=== PATIENT | female | born 1960 | race American Indian/Alaskan Native ===

== ENCOUNTER 2017-09-18 17:34 | Inpatient (IN) | payer MEDICAID ==
[2017-09-18] MEDS ORDERED: Tobramycin 0.3% OPHT SOLN OU STA (17:57)
[2017-09-18 18:01] VITALS: BMI 50.2
--- NOTE | 2017-09-18 18:43 | ED PDOC ---
Arrival/HPI - General Chief Complaint: Lower Extremity Problem/Injury Time Seen by Provider: 09/18/17 17:45 Historian: Patient - History of Present Illness Narrative History of Present Illness (Text): 09/18/17 19:32 57yo female with Past medical history of Diabetes, hypertension, OA of B/L knee and HIV bib for complaint of b/l knee pain/weakness, nonproductive cough nasal congestion, b/l eyes redness and crusty discharge. Notes that symptoms started a week now. Knee pain is chronic, but only became worse recently. Notes that she is not on any analgesic. She is on HAART medication and viral load is 819 a year ago. She denies shortness of breath, chest pain, fever, chills, sick contact, travel, visual change, any other complaint. Past Medical History - Provider Review Nursing Documentation Reviewed: Yes - Infectious Disease Hx of Infectious Diseases: None - Cardiac Hx Hypertension: Yes - Pulmonary Hx Chronic Obstructive Pulmonary Disease (COPD): Yes Hx Sleep Apnea: Yes - HEENT Hx Deafness: Yes (L ear) - Psychiatric Hx Substance Use: Yes (h/o heroine use) - Surgical History Other/Comment: R ear surgery - Anesthesia Hx Anesthesia: Yes Hx Anesthesia Reactions: No Hx Malignant Hyperthermia: No Family/Social History - Physician Review Nursing Documentation Reviewed: Yes Family/Social History: Unknown Family HX Smoking Status: Current Some Days Smoker Hx Alcohol Use: No Frequency of alcohol use: Socially Hx Substance Use: Yes (h/o heroine use) Allergies/Home Meds Allergies/Adverse Reactions: Allergies No Known Allergies Allergy (Verified 09/18/17 17:56) Home Medications: Home Meds Medication Instructions Recorded Confirmed Aspirin [Aspirin Chewable] 1 tab PO DAILY 09/18/17 09/18/17 Gabapentin [Neurontin] 1 cap PO TID 09/18/17 09/18/17 Review of Systems - Physician Review All systems were reviewed & negative as marked: Yes - Review of Systems Constitutional: Normal Eyes: Other (Redness and discharge) ENT: Normal Respiratory: Cough Cardiovascular: Normal Gastrointestinal: Abdominal Pain. absent: Constipation, Diarrhea, Nausea, Vomiting, Hematochezia, Hematemesis Genitourinary Female: Normal Musculoskeletal: Arthralgias (B/L knee pain) Skin: Normal Neurological: Normal Endocrine: Normal Hemo/Lymphatic: Normal Psychiatric: Normal Physical Exam Vital Signs Reviewed: Yes Vital Signs Temp Pulse Resp BP Pulse Ox 09/18/17 18:09 98.4 F 88 18 119/75 95 Temperature: Afebrile Blood Pressure: Normal Pulse: Regular Respiratory Rate: Normal Appearance: Positive for: Well-Appearing, Non-Toxic, Comfortable Pain Distress: None Mental Status: Positive for: Alert and Oriented X 3 - Systems Exam Head: Present: Atraumatic, Normocephalic Pupils: Present: PERRL Extroacular Muscles: Present: EOMI Conjunctiva: Present: Injected (B/L. LEft worse than right), Icteric (Rede left conjunctiva) Mouth: Present: Moist Mucous Membranes Nose (Internal): Present: Normal Inspection Neck: Present: Normal Range of Motion Respiratory/Chest: Present: Clear to Auscultation, Good Air Exchange. No: Respiratory Distress, Accessory Muscle Use, Wheezes, Decreased Breath Sounds, Rales, Retracting, Rhonchi Cardiovascular: Present: Regular Rate and Rhythm, Normal S1, S2. No: Murmurs Abdomen: Present: Tenderness (Suprapubic tenderness), Other (soft). No: Distention, Peritoneal Signs, Rebound, Guarding, McBurney's Point Tender, Rovsing's Sign Present Back: Present: Normal Inspection Upper Extremity: Present: Normal Inspection. No: Cyanosis, Edema Lower Extremity: Present: Normal Inspection. No: Edema Neurological: Present: GCS=15, CN II-XII Intact, Speech Normal Skin: Present: Warm, Dry, Normal Color. No: Rashes Psychiatric: Present: Alert, Oriented x 3, Normal Insight, Normal Concentration Medical Decision Making ED Course and Treatment: B/L Knee 09/19/17 00:36 IMPRESSION: 1. Tricompartment degenerative changes are visualized. 2. There is no acute fracture or dislocation of the right knee. 3. Mild soft tissue swelling is visualized anteriorly. 4. There is a minimal patellofemoral joint effusion. 5. Incidental/non-acute findings are described above Chest CT MPRESSION: 1. Within the right lower lobe, there is a band of consolidation, likely representing atelectatic change or infiltrate. Additional patchy areas of atelectatic change and nonspecific groundglass density are visualized within the lungs bilaterally. 2. A few pulmonary nodules are noted above. If this patient is at low risk for a primary malignancy, then a follow-up noncontrast chest CT is recommended at 6-12 months , then at 18-24 months if unchanged. If this patient is at high risk for a primary malignancy, then a follow-up noncontrast chest CT is recommended at 3-6 months, then at 9-12 months and at 24 months if unchanged. Fleischner Society Recommendations. Incidental Pulmonary Nodule Follow-up. Radiology, 2005 Apr;237(2):395-400. 3. There is cardiomegaly. 4. There is mediastinal and bilateral axillary lymphadenopathy. These lymph nodes may be inflammatory or malignant in etiology. This can be further evaluated with PET/ CT. 5. There is heterogeneous density and irregularity within the lumen of the esophagus, which is of indeterminate clinical significance. This can be further evaluated with an esophagram. 6. Incidental/non-acute findings are described above Pt in Emergency department for stated history. B/L lower lobe consolidation was noted. Mild leukocytosis was noted. Blood culture was ordered. Rocephin and Zithro was ordered in Emergency department. Cr. of 7.5 was noted and pt is not aware of any kidney disease. Her potassium is however WNL. Pt was admitted for further treatment Case was TASNEEM Orta and she accepted pt for admission. - Lab Interpretations Lab Results: 09/18/17 19:00 09/18/17 19:00 Lab Results 09/18/17 19:00: TSH 3rd Generation 1.55 09/18/17 19:00: Sodium 140, Potassium 5.0, Chloride 99, Carbon Dioxide 25, Anion Gap 21 H, BUN 70 H, Creatinine 7.5 H*, Est GFR ( Amer) 7, Est GFR ( Non-Af Amer) 6, Random Glucose 98, Calcium 9.6, Total Bilirubin 0.4, AST 49 H, ALT 39, Alkaline Phosphatase 83, Total Protein 9.3 H, Albumin 4.1, Globulin 5.1 , Albumin/Globulin Ratio 0.8 L, Lipase 48 09/18/17 19:00: PT 12.4, INR 1.09 H, APTT 26.7 09/18/17 19:00: WBC 11.3 H, RBC 3.90, Hgb 11.2 L, Hct 35.9 L, MCV 92.1, MCH 28.7 , MCHC 31.2, RDW 16.1 H, Plt Count 224, MPV 9.8, Gran % 70.5 H, Lymph % (Auto) 22.8, [place] % (Auto) 5.6, Eos % (Auto) 1.0 L, Baso % (Auto) 0.1, Gran # 8.00 H, Lymph # (Auto) 2.6, [place] # (Auto) 0.6, Eos # (Auto) 0.1, Baso # (Auto) 0.01 - RAD Interpretation Radiology Orders: 09/18/17 17:57 CHEST PORTABLE [RAD] Stat 09/18/17 18:43 KNEES BILATERAL [RAD] Stat 09/18/17 20:48 EXT LOWER W/O CONTRAST BI [CT] Stat 09/18/17 21:18 CHEST W/O CONTRAST [CT] Stat - Medication Orders Current Medication Orders: Acetaminophen (Tylenol 325mg Tab) 650 mg PO Q6H PRN PRN Reason: Pain, Mild (1-3) Last Admin: 09/18/17 23:52 Dose: 650 mg MAR Pain/Vitals Document 09/18/17 23:52 MJ (Rec: 09/18/17 23:53 MJ [facility] [id number][place] Pain Reassessment Is This A Pain ReAssessment? No Sleep Is patient sleeping during reassessment? No Presence of Pain Presence of Pain Yes Pain Scale Used Pain Scale Used Numeric Location Left, Right or Bilateral Right Pain Location Body Site Knee Description Constant Intensity 8 Pain Behavior Moaning Alleviating Factors Medication Heparin Sodium (Porcine) (Heparin) 5,000 units SC Q12 VELIA PRN Reason: Protocol Ceftriaxone Sodium (Rocephin 1 Gram Ivpb) 1 gm in 100 mls @ 100 mls/hr IVPB DAILY VELIA PRN Reason: Protocol Azithromycin (Zithromax 500mg In Ns) 500 mg in 250 mls @ 167 mls/hr IVPB DAILY VELIA PRN Reason: Protocol Pantoprazole Sodium (Protonix Inj) 40 mg IVP DAILY VELIA Discontinued Medications Ceftriaxone Sodium (Rocephin 1 Gram Ivpb) 1 gm in 100 mls @ 200 mls/hr IVPB STAT STA PRN Reason: Protocol Stop: 09/18/17 21:47 Last Admin: 09/18/17 21:39 Dose: 200 mls/hr eMAR Start Stop Document 09/18/17 21:39 RD (Rec: 09/18/17 21:39 RD [id number]) Intravenous Solution Start Date 09/18/17 Start Time 21:39 End Date 09/18/17 End time 22:09 Total Infusion Time 30 Azithromycin (Zithromax 500mg In Ns) 500 mg in 250 mls @ 167 mls/hr IVPB STAT STA PRN Reason: Protocol Stop: 09/18/17 22:46 Last Admin: 09/18/17 22:47 Dose: 167 mls/hr eMAR Start Stop Document 09/18/17 22:47 RD (Rec: 09/18/17 22:48 RD [id number]) Intravenous Solution Start Date 09/18/17 Start Time 22:48 End Date 09/19/17 End time 00:18 Total Infusion Time 90 Sodium Chloride (Sodium Chloride 0.9%) 500 mls @ 999 mls/hr IV .Q31M STA Stop: 09/18/17 23:04 Sodium Chloride (Sodium Chloride 0.9%) 1,000 mls @ 999 mls/hr IV .Q1H1M STA Stop: 09/18/17 23:34 Last Admin: 09/18/17 22:52 Dose: 999 mls/hr eMAR Start Stop Document 09/18/17 22:52 RD (Rec: 09/18/17 22:52 RD [id number]) Intravenous Solution Start Date 09/18/17 Start Time 22:52 End Date 09/18/17 End time 23:52 Total Infusion Time 60 Ketorolac Tromethamine (Toradol) 30 mg IVP STAT STA Stop: 09/18/17 19:29 Last Admin: 09/18/17 19:36 Dose: 30 mg MAR Pain Assessment Document 09/18/17 19:36 RD (Rec: 09/18/17 19:36 RD [id number]) Pain Reassessment Is this a pain reassessment? No Sleep Is patient sleeping during reassessment? No Presence of Pain Presence of Pain Yes IVP Administration Document 09/18/17 19:36 RD (Rec: 09/18/17 19:36 RD [id number]) Charges for Administration # of IVP Administrations 1 Oxycodone/Acetaminophen (Percocet 5/325 Mg Tab) 1 tab PO STAT STA Stop: 09/18/17 21:02 Last Admin: 09/18/17 21:10 Dose: 1 tab MAR Pain Assessment Document 09/18/17 21:10 RD (Rec: 09/18/17 21:10 RD [id number]) Pain Reassessment Is this a pain reassessment? No Sleep Is patient sleeping during reassessment? No Presence of Pain Presence of Pain Yes Pain Scale Used Pain Scale Used Numeric Description Description Constant Intensity of Pain at present 7 Pain Behavior Irritability Alleviating Factors/Management Medication Techniques Alleviating Factors Medication Tobramycin Sulfate (Tobrex 0.3% [facility]) 2 drop OU STAT STA Stop: 09/18/17 17:58 Last Admin: 09/18/17 19:36 Dose: 2 drop Disposition/Present on Arrival - Present on Arrival Any Indicators Present on Arrival: No History of DVT/PE: No History of Uncontrolled Diabetes: No Urinary Catheter: No History of Decub. Ulcer: No History Surgical Site Infection Following: None - Disposition Have Diagnosis and Disposition been Completed?: Yes Diagnosis: Pneumonia, Acute kidney failure, Knee pain Disposition: HOSPITALIZED Disposition Time: 21:45 Patient Plan: Admission Condition: FAIR
[2017-09-18 19:54] LABS: BASO # 0.01 K/mm3 (0.0-2.0); BASO % 0.1 % (0.0-3.0); EOS # 0.1 (0.0-0.7); GRAN % 70.5 % (50.0-68.0); HEMOGLOBIN 11.2 g/dL (12.0-16.0); LYMPH # 2.6 (1.2-3.4); LYMPH % 22.8 % (22.0-35.0); MEAN CELL VOLUME 92.1 fl (80.0-105.0); MEAN CORPUSCULAR HEMOGLOBIN 28.7 pg (25.0-35.0); MEAN CORPUSCULAR HGB CONC 31.2 g/dl (31.0-37.0); MEAN PLATELET VOLUME 9.8 fl (7.0-11.0); MONO # 0.6 (0.1-0.6); MONO % 5.6 % (1.0-6.0); RBC 3.9 10^6/uL (3.5-6.1); RED CELL DISTRIBUTION WIDTH 16.1 % (11.5-14.5); WHITE BLOOD COUNT 11.3 10^3/ul (4.5-11.0)
[2017-09-18 19:59] LABS: INR 1.09 (0.93-1.08); PARTIAL THROMBOPLASTIN TIME 26.7 Seconds (25.1-36.5); PROTHROMBIN TIME 12.4 SECONDS (9.4-12.5)
[2017-09-18 20:03] LABS: ALB/GLOB RATIO 0.8 (1.1-1.8); ALBUMIN 4.1 g/dL (3.0-4.8); CALCIUM 9.6 mg/dL (8.4-10.5)
[2017-09-18] MEDS ORDERED: Oxycodone/Acetaminophen 5/325 mg Tab PO STA (21:01)
[2017-09-18] MEDS ORDERED: Azithromycin 500MG/NS 250ml 500 MG/250 ML BAG IVPB STA (21:17)
[2017-09-18] MEDS ORDERED: cefTRIAXone 1 gm 1 GM/100 ML BAG IVPB STA (21:18)
[2017-09-18] MEDS ORDERED: Sodium Chloride 0.9% 500 ML IV STA (22:34)
[2017-09-18] MEDS ORDERED: Sodium Chloride 0.9% 1,000 ML IV STA (22:41)
--- NOTE | 2017-09-19 00:23 | CT ---
EXAM: CT Chest Without Intravenous Contrast EXAM DATE/TIME: 09/18/2017 9:18 PM CLINICAL HISTORY: The patient age is 57 years old and is female; Signs and symptoms; Cough; Symptoms not specified; Additional info: Cough, ? effusion Facility exam id and description: Ct chests chest w/o contrast TECHNIQUE: Axial computed tomography images of the chest without intravenous contrast. All CT scans at this facility use one or more dose reduction techniques, viz.: automated exposure control; ma/kV adjustment per patient size (including targeted exams where dose is matched to indication; i.e. head); or iterative reconstruction technique. Coronal and sagittal reformatted images were created and reviewed. COMPARISON: DX - CHEST PORTABLE 2017-09-18 20:11 FINDINGS: Lungs: Within the right lower lobe, there is a band of consolidation, likely representing atelectatic change or infiltrate. Additional patchy areas of atelectatic change and nonspecific groundglass density are visualized within the lungs bilaterally. Within the right lower lobe on series 4 image 59, there is a 5 mm nodule. Within the right middle lobe on series 4 image 49, there is a 7 mm nodule. Pleural space: No pneumothorax. No significant effusion. Heart: There is cardiomegaly. Mediastinum: There is heterogeneous density and irregularity within the lumen of the esophagus, which is of indeterminate clinical significance. Bones/joints: Hypertrophic degenerative changes are noted within the spine. There is bilateral glenohumeral arthropathy. Vasculature: Mild atherosclerotic changes are visualized. No thoracic aortic aneurysm. Lymph nodes: There is mediastinal and bilateral axillary lymphadenopathy. These lymph nodes may be inflammatory or malignant in etiology. A right paratracheal lymph node measures 2.0 x 2.3 cm. Adrenals: There is thickening of the bilateral adrenal glands. Upper abdomen: There is mild elevation of the right hemidiaphragm. IMPRESSION: 1. Within the right lower lobe, there is a band of consolidation, likely representing atelectatic change or infiltrate. Additional patchy areas of atelectatic change and nonspecific groundglass density are visualized within the lungs bilaterally. 2. A few pulmonary nodules are noted above. If this patient is at low risk for a primary malignancy, then a follow-up noncontrast chest CT is recommended at 6-12 months, then at 18-24 months if unchanged. If this patient is at high risk for a primary malignancy, then a follow-up noncontrast chest CT is recommended at 3-6 months, then at 9-12 months and at 24 months if unchanged. Fleischner Society Recommendations. Incidental Pulmonary Nodule Follow-up. Radiology, 2005 Nov;237(2):395-400. 3. There is cardiomegaly. 4. There is mediastinal and bilateral axillary lymphadenopathy. These lymph nodes may be inflammatory or malignant in etiology. This can be further evaluated with PET/CT. 5. There is heterogeneous density and irregularity within the lumen of the esophagus, which is of indeterminate clinical significance. This can be further evaluated with an esophagram. 6. Incidental/non-acute findings are described above.
--- NOTE | 2017-09-19 00:32 | CT ---
EXAM: CT Left Lower Extremity Without Intravenous Contrast, Knee CLINICAL HISTORY: The patient age is 57 years old and is female; Pain; Knee; Bilatera; Additional info: B/l knees Facility exam id and description: Ct extlowncbi ext lower w/o contrast bi TECHNIQUE: Axial computed tomography images of the left knee without intravenous contrast. All CT scans at this facility use one or more dose reduction techniques, viz.: automated exposure control; ma/kV adjustment per patient size (including targeted exams where dose is matched to indication; i.e. head); or iterative reconstruction technique. Coronal and sagittal reformatted images were created and reviewed. COMPARISON: DX - KNEES BILATERAL 2017-09-18 20:01 FINDINGS: Bones/joints: Tricompartment hypertrophic degenerative changes are visualized. There is no acute fracture or dislocation of the left knee. There is a minimal patellofemoral joint effusion. There is significant narrowing of the patellofemoral joint and medial compartment of the knee. Cystic change is identified within the bone marrow of the medial tibial plateau. This is likely secondary to arthropathy. Soft tissues: Mild soft tissue swelling is visualized anteriorly. CT is suboptimal for the evaluation of ligaments, tendons and menisci. IMPRESSION: 1. Tricompartment degenerative changes are visualized. 2. There is no acute fracture or dislocation of the left knee. 3. Mild soft tissue swelling is visualized anteriorly. 4. There is a minimal patellofemoral joint effusion. 5. Incidental/non-acute findings are described above. EXAM: CT Right Lower Extremity Without Intravenous Contrast, Knee EXAM DATE/TIME: 09/18/2017 8:48 PM CLINICAL HISTORY: The patient age is 57 years old and is female; Pain; Knee; Bilatera; Additional info: B/l knees Facility exam id and description: Ct extlowncbi ext lower w/o contrast bi TECHNIQUE: Axial computed tomography images of the right knee without intravenous contrast. All CT scans at this facility use one or more dose reduction techniques, viz.: automated exposure control; ma/kV adjustment per patient size (including targeted exams where dose is matched to indication; i.e. head); or iterative reconstruction technique. Coronal and sagittal reformatted images were created and reviewed. COMPARISON: DX - KNEES BILATERAL 2017-09-18 20:01 FINDINGS: Bones/joints: Tricompartment hypertrophic degenerative changes are visualized. There is no acute fracture or dislocation of the right knee. There is a minimal patellofemoral joint effusion. Within the patella, there is a hypodense probable cyst measuring 1.1 x 1.0 cm. There is an ossific loose body posterior to the knee measuring 1.9 x 1.3 cm. A fabella is also visualized. There is significant narrowing of the patellofemoral joint and medial compartment of the knee. Soft tissues: Mild soft tissue swelling is visualized anteriorly. CT is suboptimal for the evaluation of ligaments, tendons and menisci. IMPRESSION: 1. Tricompartment degenerative changes are visualized. 2. There is no acute fracture or dislocation of the right knee. 3. Mild soft tissue swelling is visualized anteriorly. 4. There is a minimal patellofemoral joint effusion. 5. Incidental/non-acute findings are described above.
[2017-09-19] MEDS ORDERED: Aritificial Tears (15ml) OU PRN (00:45)
--- NOTE | 2017-09-19 01:06 | CP.PCM.HP ---
History of Present Illness - History of Present Illness History of Present Illness: CC: Weakness, cough, congestion Pt is a 57 yo F with PMH of DM, HTN, OA of b/l knees, HIV, COPD, and osteoporosis [place] [facility] to a 1 week history of weakness, cold like symptoms, and b/l LE pain. Pt complains of cough that is productive with green sputum, shortness of breath, and sinus congestion. Pt denies any recent travel or sick contacts. Pt states that she has had recurrent pneumonias in the past, the most recent being 1 year ago. She [place] [facility] [place] but came [place] [facility] [place] she recently moved to [place]. Pt is currently on HAART therapy for HIV. Last , CD4 and viral load was obtained about 1 year and was 1 and 862, respectively. Pt is unsure of her medications at this time. Pt states that she does not follow up with an infectious disease physician, however does get refill prescriptions from [facility]. Pt states that she was shopping for food earlier today, when she feel on her knees. Since then patient is complaining of b/l knee pain, as well as diffuse LE pain to touch. Pt states that left knee is difficult to keep straight for long periods due to pain. Pt states that with her history of OA there is always some pain, but much more after fall. Pt denies CP, n/v/d, abdominal pain, fever, chills, CROSS, or dizziness. PMH: DM, HTN, OA of b/l knees, HIV, COPD, and osteoporosis Surg: Ear surgery All: NKDA FHx: DM, HTN, CAD, breast CA SH: 1/2 ppd for 30 yrs, admitted to prior heroin (snort) use for 6 months (quit 15 months ago) currently on methadone 100 mg daily, denied EtOH [facility] (Methadone) [phone] [facility] (Medications) [phone] (needs verification) Present on Admission - Present on Admission Any Indicators Present on Admission: No Review of Systems - Review of Systems Review of Systems: 12 point ROS reviewed and is negative other than what is stated in HPI. Past Patient History - Infectious Disease Hx of Infectious Diseases: None - Past Social History Smoking Status: Current Some Days Smoker - CARDIAC Hx Hypertension: Yes - PULMONARY Hx Chronic Obstructive Pulmonary Disease (COPD): Yes Hx Sleep Apnea: Yes - HEENT Hx Deafness: Yes (L ear) - HEMATOLOGICAL/ONCOLOGICAL Hx Human Immunodeficiency Virus (HIV): Yes - PSYCHIATRIC Hx Substance Use: Yes (h/o heroine use) - SURGICAL HISTORY Other/Comment: R ear surgery - ANESTHESIA Hx Anesthesia: Yes Hx Anesthesia Reactions: No Hx Malignant Hyperthermia: No Meds Allergies/Adverse Reactions: Allergies Allergy/AdvReac Type Severity Reaction Status Date / Time No Known Allergies Allergy Verified 09/18/17 17:56 Physical Exam - Constitutional Appears: In Acute Distress, Unkempt - Head Exam Head Exam: NORMAL INSPECTION - Eye Exam Eye Exam: Conjunctival injection (L>R, no discharge) Pupil Exam: NORMAL ACCOMODATION - ENT Exam ENT Exam: Mucous Membranes Moist - Neck Exam Neck exam: Positive for: Normal Inspection - Respiratory Exam Respiratory Exam: Decreased Breath Sounds, Clear to Auscultation Bilateral. absent: Rales, Rhonchi, Wheezes, Respiratory Distress - Cardiovascular Exam Cardiovascular Exam: RRR, +S1, +S2. absent: Diastolic murmur, Gallop, Rubs, Systolic Murmur - GI/Abdominal Exam GI & Abdominal Exam: Soft. absent: Distended, Guarding, Rebound, Tenderness - Extremities Exam Extremities exam: Positive for: joint swelling (b/l knee), normal capillary refill, tenderness (diffuse b/l LE), pedal pulses present. Negative for: calf tenderness, full ROM (limited due to pain) - Back Exam Back exam: NORMAL INSPECTION - Neurological Exam Neurological exam: Alert, CN II-XII Intact, Oriented x3 - Psychiatric Exam Psychiatric exam: Normal Affect, Normal Mood - Skin Skin Exam: Dry, Intact, Normal Color, Warm Results - Vital Signs Recent Vital Signs: Last Vital Signs Temp 98.4 F 09/18/17 18:09 Pulse 88 09/18/17 18:09 Resp 18 09/18/17 18:09 BP 119/75 09/18/17 18:09 Pulse Ox 95 09/18/17 18:09 - Labs Result Diagrams: 09/18/17 19:00 09/18/17 19:00 Labs: Laboratory Results - last 24 hr 09/18/17 23:23 POC Glucose (mg/dL) 98 Assessment & Plan - Assessment and Plan (Free Text) Assessment: 57 yo F with PMH of DM, HTN, OA of b/l knees, HIV, COPD, and osteoporosis admitted for pneumonia and renal insufficiency. Plan: 1. Possible Pneumonia - Afebrile, mild luekocytosis - CXR shows possible b/l lower lobe infiltrate, but likely due to large body habitus - CT showed band consolidation within the right lower lobe, likely representing atelectatic change or infiltrate. Patchy areas of atelectatic change and nonspecific groundglass density. 5 mm nodule in right lower lobe. Mediastinal and bilateral axillary lymphadenopathy. - Cover patient for CAP with ceftriaxone and azithromycin - CPAP HS - Aspiration and fall precautions 2. Renal Insufficiency - Cr 7.5 - Patient unaware of any kidney disease - Likely acute on chronic kidney disease - Urine electrolytes and creatinine ordered to calculate FeNa - NS 1L bolus - Echo ordered to assess cardiac function, no maintenance fluids ordered at this time - Nephro consulted 3. H/o HIV - CD4 and viral load ordered - Follow up with [facility] or Pharmacy for HAART and other home medications 4. H/o of Heroin abuse on Methadone - Verify Methadone 100 mg daily with [facility] 5. B/L knee pain - Likely 2/2 osteoarthritis - B/L knee xray showed no acute fractures, joint space narrowing and osteophytes consistent with osteoarthritis - B/L knee CT showed tricompartment degenerative changes are visualized, no acute fracture or dislocation, Mild soft tissue swelling is visualized anteriorly - Tylenol for pain; avoid NSAIDs for now due to renal insufficiency and opioids due to h/o heroin abuse 6. Conjunctivitis - Likely viral as no discharge is appreciated - Supportive care with artificial tears 7. Pulmonary Nodule found on CT - CT chest showed 5 mm nodule in right lower lobe - If this patient is at low risk for a primary malignancy, then a follow-up noncontrast chest CT is recommended at 6-12 months, then at 18-24 months if unchanged. If this patient is at high risk for a primary malignancy, then a follow-up noncontrast chest CT is recommended at 3-6 months, then at 9-12 months and at 24 months if unchanged. Fleischner Society Recommendations. Incidental Pulmonary Nodule Follow-up. Radiology, 2005 Nov;237(2):395-400. GI/DVT PPx - Protonix - Heparin Pt seen and discussed in detail with Dr. Orta. Howard Thompson, PGY1
[2017-09-19 07:24] LABS: HEMOGLOBIN 10.4 g/dL (12.0-16.0); MEAN CELL VOLUME 91.9 fl (80.0-105.0); MEAN CORPUSCULAR HGB CONC 30.5 g/dl (31.0-37.0); MEAN PLATELET VOLUME 9.9 fl (7.0-11.0); RBC 3.71 10^6/uL (3.5-6.1); RED CELL DISTRIBUTION WIDTH 16.2 % (11.5-14.5); WHITE BLOOD COUNT 13.6 10^3/ul (4.5-11.0)
[2017-09-19 07:44] LABS: ALB/GLOB RATIO 0.8 (1.1-1.8); ALBUMIN 3.8 g/dL (3.0-4.8); CALCIUM 8.9 mg/dL (8.4-10.5)
[2017-09-19] MEDS ORDERED: Dextrose 50% SYRINGE Inj (50 ml) IVP ONE ×2 (07:57→16:26)
[2017-09-19] MEDS ORDERED: Sod Polystyrene Sulf 15 gm/60 ml Susp PO ONE (07:57)
[2017-09-19] MEDS ORDERED: Insulin Regular 1 UNITS/0.01 ML ML SC ONE (07:58)
[2017-09-19] MEDS ORDERED: Sodium Chloride 0.9% 1,000 ML IV SCH ×2 (08:30→16:00)
[2017-09-19] MEDS ORDERED: Insulin Regular 1 UNITS/0.01 ML ML IVP ONE ×2 (08:47→16:22)
--- NOTE | 2017-09-19 09:32 | RAD ---
HISTORY: cough COMPARISON: No prior. FINDINGS: LUNGS: No active pulmonary disease. PLEURA: No significant pleural effusion identified, no pneumothorax apparent. CARDIOVASCULAR: Normal. OSSEOUS STRUCTURES: No significant abnormalities. VISUALIZED UPPER ABDOMEN: Normal. OTHER FINDINGS: None. IMPRESSION: No active disease.
[2017-09-19] MEDS ORDERED: Albuterol 0.5% Inhal Sol (2.5 mg/0.5 ml) UD IH STA ×3 (09:38→16:22)
[2017-09-19] MEDS: cefTRIAXone 1 gm 1 GM/100 ML BAG IVPB SCH (11:38)
[2017-09-19] MEDS: Azithromycin 500MG/NS 250ml 500 MG/250 ML BAG IVPB SCH (12:43)
--- NOTE | 2017-09-19 13:20 | RAD ---
HISTORY: congestion COMPARISON: 09/18/2017 FINDINGS: LUNGS: No active pulmonary disease. PLEURA: No significant pleural effusion identified, no pneumothorax apparent. CARDIOVASCULAR: Moderate cardiomegaly. Mild vascular congestion OSSEOUS STRUCTURES: No significant abnormalities. VISUALIZED UPPER ABDOMEN: Normal. OTHER FINDINGS: None. IMPRESSION: Moderate cardiomegaly. Mild vascular congestion
--- NOTE | 2017-09-19 13:29 | RAD ---
PROCEDURE: Bilateral Knee Radiographs. HISTORY: knee pain COMPARISON: None. FINDINGS: BONES: Right Knee: Normal. No fracture. Left Knee: Normal. No fracture. JOINTS: Severe joint space narrowing in the medial compartment is seen bilaterally left greater than right. Degenerative changes are also seen in both patellofemoral joints SOFT TISSUES: Right Knee: Normal. Left Knee: Normal. JOINT EFFUSION: Right Knee: None. Left Knee: None. OTHER FINDINGS: None. IMPRESSION: Severe joint space narrowing in the medial compartment is seen bilaterally left greater than right. Degenerative changes are also seen in both patellofemoral joints
[2017-09-19 13:38] LABS: URINE BILIRUBIN NEGATIVE (NEGATIVE); URINE BLOOD TRACE-LYSED (NEGATIVE); URINE GLUCOSE (UA) NEGATIVE (NEGATIVE); URINE LEUKOCYTE ESTERASE NEGATIVE Leu/uL (NEGATIVE); URINE PROTEIN 100 mg/dL (<30 mg/dL); URINE UROBILINOGEN 0.2 E.U./dL (<1 E.U./dL)
[2017-09-19 13:39] LABS: URINE APPEARANCE SL CLOUDY (CLEAR); URINE COLOR DARK YELLOW (YELLOW)
--- NOTE | 2017-09-19 13:56 | CP.PCM.CON ---
History of Present Illness - History of Present Illness History of Present Illness: Infectious Disease Consultation: September 19, 2017 57 yo female with PMH of DM, HTN, OA of b/l knees, HIV, COPD, and osteoporosis presents to [facility] due to a 1 week history of weakness, cold like symptoms, and b/ l LE pain. Pt complains of cough that is productive with green sputum, shortness of breath, and sinus congestion. She states that she receives her HIV medication scripts from the [facility] [[email or web address] PMHx: DM, HTN, OA of b/l knees, HIV, COPD, and osteoporosis PSHx: Ear surgery Allergies: NKDA Social Hx: 1/2 ppd for 30 yrs, admitted to prior heroin (snort) use for 6 months (quit 15 months ago) currently on methadone 100 mg daily, denied EtOH Active Medications Acetaminophen (Tylenol 325mg Tab) 650 mg PO Q6H PRN PRN Reason: Pain, Mild (1-3) Last Admin: 09/18/17 23:52 Dose: 650 mg Albuterol/Ipratropium (Duoneb 3 Mg/0.5 Mg (3 Ml) Ud) 3 ml IH Q2H PRN PRN Reason: Shortness of Breath Artificial Tears (Artificial Tears) 0 ml OU Q1H PRN PRN Reason: Dry eyes Aspirin (Aspirin Chewable) 81 mg PO DAILY [facility] Last Admin: 09/19/17 09:54 Dose: 81 mg Gabapentin (Neurontin) 300 mg PO TID [facility] PRN Reason: Protocol Last Admin: 09/19/17 09:54 Dose: 300 mg Heparin Sodium (Porcine) (Heparin) 5,000 units SC Q12 [facility] PRN Reason: Protocol Last Admin: 09/19/17 09:35 Dose: 5,000 units Ceftriaxone Sodium (Rocephin 1 Gram Ivpb) 1 gm in 100 mls @ 100 mls/hr IVPB DAILY [facility] PRN Reason: Protocol Last Admin: 09/19/17 11:38 Dose: 100 mls/hr Azithromycin (Zithromax 500mg In Ns) 500 mg in 250 mls @ 167 mls/hr IVPB DAILY [facility] PRN Reason: Protocol Last Admin: 09/19/17 12:43 Dose: 167 mls/hr Methadone HCl (Methadone) 100 mg PO DAILY [facility] Last Admin: 09/19/17 10:52 Dose: Not Given Pantoprazole Sodium (Protonix Ec Tab) 40 mg PO ACB [facility] Family Hx: none given ROS: weakness, chills, cough No SOB, chest pain, abdominal pain, melena, hematuria, hematemesis, hematochezia , depression, anxiety, diarrhea, headaches, dizziness, vision loss. Past Patient History - Infectious Disease Hx of Infectious Diseases: None - Past Social History Smoking Status: Current Some Days Smoker - CARDIAC Hx Hypertension: Yes - PULMONARY Hx Chronic Obstructive Pulmonary Disease (COPD): Yes Hx Sleep Apnea: Yes - HEENT Hx Deafness: Yes (L ear) - HEMATOLOGICAL/ONCOLOGICAL Hx Human Immunodeficiency Virus (HIV): Yes - MUSCULOSKELETAL/RHEUMATOLOGICAL Hx Falls: No - PSYCHIATRIC Hx Substance Use: Yes (h/o heroine use) - SURGICAL HISTORY Other/Comment: R ear surgery - ANESTHESIA Hx Anesthesia: Yes Hx Anesthesia Reactions: No Hx Malignant Hyperthermia: No Meds Allergies/Adverse Reactions: Allergies Allergy/AdvReac Type Severity Reaction Status Date / Time No Known Allergies Allergy Verified 09/18/17 17:56 - Medications Medications: Current Medications Acetaminophen (Tylenol 325mg Tab) 650 mg PO Q6H PRN PRN Reason: Pain, Mild (1-3) Last Admin: 09/18/17 23:52 Dose: 650 mg Albuterol/Ipratropium (Duoneb 3 Mg/0.5 Mg (3 Ml) Ud) 3 ml IH Q2H PRN PRN Reason: Shortness of Breath Artificial Tears (Artificial Tears) 0 ml OU Q1H PRN PRN Reason: Dry eyes Aspirin (Aspirin Chewable) 81 mg PO DAILY [facility] Last Admin: 09/19/17 09:54 Dose: 81 mg Gabapentin (Neurontin) 300 mg PO TID [facility] PRN Reason: Protocol Last Admin: 09/19/17 09:54 Dose: 300 mg Heparin Sodium (Porcine) (Heparin) 5,000 units SC Q12 [facility] PRN Reason: Protocol Last Admin: 09/19/17 09:35 Dose: 5,000 units Ceftriaxone Sodium (Rocephin 1 Gram Ivpb) 1 gm in 100 mls @ 100 mls/hr IVPB DAILY [facility] PRN Reason: Protocol Last Admin: 09/19/17 11:38 Dose: 100 mls/hr Azithromycin (Zithromax 500mg In Ns) 500 mg in 250 mls @ 167 mls/hr IVPB DAILY [facility] PRN Reason: Protocol Last Admin: 09/19/17 12:43 Dose: 167 mls/hr Methadone HCl (Methadone) 100 mg PO DAILY [facility] Last Admin: 09/19/17 10:52 Dose: Not Given Pantoprazole Sodium (Protonix Ec Tab) 40 mg PO ACB [facility] Physical Exam - Constitutional Appears: Non-toxic, In Acute Distress, Unkempt - Head Exam Head Exam: ATRAUMATIC, NORMOCEPHALIC - Eye Exam Eye Exam: Conjunctival injection Pupil Exam: NORMAL ACCOMODATION, PERRL - ENT Exam ENT Exam: Mucous Membranes Moist, Normal External Ear Exam, TM's Normal Bilaterally - Neck Exam Neck exam: Positive for: Full Rom, Normal Inspection - Respiratory Exam Respiratory Exam: Decreased Breath Sounds, NORMAL BREATHING PATTERN. absent: Rales, Rhonchi, Wheezes - Cardiovascular Exam Cardiovascular Exam: REGULAR RHYTHM, RRR, +S1, +S2 - GI/Abdominal Exam GI & Abdominal Exam: Normal Bowel Sounds, Soft. absent: Distended, Tenderness - Extremities Exam Extremities exam: Positive for: joint swelling, pedal edema, tenderness - Neurological Exam Neurological exam: Alert, CN II-XII Intact, Oriented x3 - Psychiatric Exam Psychiatric exam: Normal Affect, Normal Mood - Skin Skin Exam: Intact, Normal Color Results - Vital Signs Recent Vital Signs: Last Vital Signs Temp 98.2 F 09/19/17 12:00 Pulse 68 09/19/17 12:00 Resp 21 09/19/17 12:00 BP 120/80 09/19/17 12:00 Pulse Ox 92 L 09/19/17 08:00 - Labs Result Diagrams: 09/19/17 06:30 09/19/17 06:30 Labs: Laboratory Results - last 24 hr 09/18/17 09/19/17 09/19/17 23:23 06:30 06:30 WBC 13.6 H D RBC 3.71 Hgb 10.4 L Hct 34.1 L MCV 91.9 MCH 28.0 MCHC 30.5 L RDW 16.2 H Plt Count 193 MPV 9.9 Sodium 138 Potassium 7.2 H* D Chloride 102 Carbon Dioxide 21 Anion Gap 22 H BUN 77 H Creatinine 8.5 H* Est GFR ( Amer) 6 Est GFR (Non-Af Amer) 5 POC Glucose (mg/dL) 98 Random Glucose 110 Calcium 8.9 Total Bilirubin 0.4 AST 40 H ALT 33 Alkaline Phosphatase 85 Total Creatine Kinase Total Protein 8.4 H Albumin 3.8 Globulin 4.6 Albumin/Globulin Ratio 0.8 L Urine Color Urine Appearance Urine pH Ur Specific [place] Urine Protein Urine Glucose (UA) Urine Ketones Urine Blood Urine Nitrate Urine Bilirubin Urine Urobilinogen Ur Leukocyte Esterase Urine Eosinophils 09/19/17 09/19/17 09/19/17 09:00 09:57 10:00 WBC RBC Hgb Hct MCV MCH MCHC RDW Plt Count MPV Sodium Potassium Chloride Carbon Dioxide Anion Gap BUN Creatinine Est GFR ( Amer) Est GFR (Non-Af Amer) POC Glucose (mg/dL) Random Glucose Calcium Total Bilirubin AST ALT Alkaline Phosphatase Total Creatine Kinase 147 Total Protein Albumin Globulin Albumin/Globulin Ratio Urine Color Dark yellow Urine Appearance Sl cloudy Urine pH 5.0 Ur Specific [place] >= 1.030 Urine Protein 100 H Urine Glucose (UA) Negative Urine Ketones Trace H Urine Blood Trace-lysed H Urine Nitrate Negative Urine Bilirubin Negative Urine Urobilinogen 0.2 Ur Leukocyte Esterase Negative Urine Eosinophils Negative Assessment & Plan - Assessment and Plan (Free Text) Assessment: 57 yo female with multiple medical issues including HIV, knee pain, Morbid Obesity, Renal insufficiency, conjunctivitis presenting with cough and SOB for the past week. Possible pneumonia seen in Chest X-ray. Supportive care. Started on Azithromycin and Rocephin for initial antibiotic coverage. Need CD4 and HIV Viral load to be done. Her last CD4 was 862 and Undetectable viral load taken 1 year ago. The patient does not know her HAART regimen. Need confirmation from her clinic regarding medications. Thank you for allowing me to participate in the care of the patient, we will follow with you.
[2017-09-19 13:58] LABS: URINE BACTERIA MANY (NEG); URINE WBC 0 - 2 /hpf (0-6)
[2017-09-19 13:59] LABS: URINE HYALINE CAST 0 - 2 /hpf
[2017-09-19 14:00] LABS: URINE COARSE GRANULAR CAST TRACE /hpf (0-2)
[2017-09-19 14:25] LABS: ARTERIAL BLOOD GAS HCO3 22.6 mmol/L (21-28); ARTERIAL BLOOD GAS O2 SAT 93.3 % (95-98); ARTERIAL BLOOD GAS PCO2 65 mm/Hg (35-45); ARTERIAL BLOOD GAS TCO2 24.6 mmol.L (22-28)
[2017-09-19 14:27] LABS: ARTERIAL BLOOD GAS PH 7.15 (7.35-7.45)
[2017-09-19] MEDS ORDERED: Lidocaine 1%/Epinephrine 1:100000 30 ml vial IJ ONE ×2 (15:41→17:00)
[2017-09-19 16:06] LABS: CALCIUM 8.8 mg/dL (8.4-10.5)
--- NOTE | 2017-09-19 17:03 | CP.PCM.CON ---
History of Present Illness - History of Present Illness History of Present Illness: MICU Consult Note HPI: Patient is 57yo female with PMhx of DM, HTN, OA of b/l knees, HIV on HAART, unknown VL/CD4 count, COPD, and osteoporosis presented with weakness, fatigue, and B/L LE pain. Pt reported that she also had cough productive of green sputum , and SOB. Pt amidtted to floor treated for PNA, and acute renal failure of unknown etiology. Pt this afternoon had ABG done which showed acute resp acidosis with metabolic acidosis. Currently the is afebrile, HD stable, comfortable in NAD, awake, alert providing full history. Pt denies any major complaints. Renal and ID following, plan for HD for tomorrow. PMH: DM, HTN, OA of b/l knees, HIV, COPD, and osteoporosis Surg: Ear surgery All: NKDA FHx: DM, HTN, CAD, breast CA SH: 1/2 ppd for 30 yrs, admitted to prior heroin (snort) use for 6 months (quit 15 months ago) currently on methadone 100 mg daily, denied EtOH Review of Systems - Review of Systems Review of Systems: as per HPI Past Patient History - Infectious Disease Hx of Infectious Diseases: None - Past Social History Smoking Status: Current Some Days Smoker - CARDIAC Hx Hypertension: Yes - PULMONARY Hx Chronic Obstructive Pulmonary Disease (COPD): Yes Hx Sleep Apnea: Yes - HEENT Hx Deafness: Yes (L ear) - HEMATOLOGICAL/ONCOLOGICAL Hx Human Immunodeficiency Virus (HIV): Yes - MUSCULOSKELETAL/RHEUMATOLOGICAL Hx Falls: No - PSYCHIATRIC Hx Substance Use: Yes (h/o heroine use) - SURGICAL HISTORY Other/Comment: R ear surgery - ANESTHESIA Hx Anesthesia: Yes Hx Anesthesia Reactions: No Hx Malignant Hyperthermia: No Meds Allergies/Adverse Reactions: Allergies Allergy/AdvReac Type Severity Reaction Status Date / Time No Known Allergies Allergy Verified 09/18/17 17:56 - Medications Medications: Current Medications Acetaminophen (Tylenol 325mg Tab) 650 mg PO Q6H PRN PRN Reason: Pain, Mild (1-3) Last Admin: 09/18/17 23:52 Dose: 650 mg Albuterol Sulfate (Albuterol 0.5% Inhal Afsaneh (2.5 Mg/0.5 Ml) Ud) 10 mg IH STAT STA Stop: 09/19/17 16:23 Albuterol/Ipratropium (Duoneb 3 Mg/0.5 Mg (3 Ml) Ud) 3 ml IH Q2H PRN PRN Reason: Shortness of Breath Artificial Tears (Artificial Tears) 0 ml OU Q1H PRN PRN Reason: Dry eyes Aspirin (Aspirin Chewable) 81 mg PO DAILY [facility] Last Admin: 09/19/17 09:54 Dose: 81 mg Calcium Gluconate (Calcium Gluconate Iv) 1,000 mg IVP ONCE ONE Stop: 09/19/17 16:23 Dextrose (Dextrose 50% Inj) 50 ml IVP ONCE ONE Stop: 09/19/17 16:27 Gabapentin (Neurontin) 300 mg PO TID [facility] PRN Reason: Protocol Last Admin: 09/19/17 09:54 Dose: 300 mg Heparin Sodium (Porcine) (Heparin) 5,000 units SC Q12 [facility] PRN Reason: Protocol Last Admin: 09/19/17 09:35 Dose: 5,000 units Ceftriaxone Sodium (Rocephin 1 Gram Ivpb) 1 gm in 100 mls @ 100 mls/hr IVPB DAILY [facility] PRN Reason: Protocol Last Admin: 09/19/17 11:38 Dose: 100 mls/hr Azithromycin (Zithromax 500mg In Ns) 500 mg in 250 mls @ 167 mls/hr IVPB DAILY [facility] PRN Reason: Protocol Last Admin: 09/19/17 12:43 Dose: 167 mls/hr Sodium Chloride (Sodium Chloride 0.9%) 1,000 mls @ 50 mls/hr IV .Q20H [facility] Stop: 09/20/17 11:59 Insulin Human Regular (Humulin R) 10 units IVP ONCE ONE Stop: 09/19/17 16:23 Methadone HCl (Methadone) 100 mg PO DAILY [facility] Last Admin: 09/19/17 10:52 Dose: Not Given Pantoprazole Sodium (Protonix Ec Tab) 40 mg PO ACB [facility] Sodium Polystyrene Sulfonate (Kayexalate Susp) 30 gm PO ONCE ONE Stop: 09/19/17 16:27 Physical Exam - Constitutional Appears: Non-toxic, No Acute Distress - Eye Exam Eye Exam: Normal appearance - ENT Exam ENT Exam: Mucous Membranes Moist - Neck Exam Neck exam: Positive for: Normal Inspection - Respiratory Exam Respiratory Exam: Clear to Auscultation Bilateral, NORMAL BREATHING PATTERN - Cardiovascular Exam Cardiovascular Exam: REGULAR RHYTHM, +S1, +S2 - GI/Abdominal Exam GI & Abdominal Exam: Normal Bowel Sounds, Soft - Neurological Exam Neurological exam: Alert, Oriented x3 - Skin Skin Exam: Normal Color, Warm Results - Vital Signs Recent Vital Signs: Last Vital Signs Temp 98.2 F 09/19/17 12:00 Pulse 81 09/19/17 15:33 Resp 21 09/19/17 12:00 BP 120/80 09/19/17 12:00 Pulse Ox 92 L 09/19/17 08:00 - Labs Result Diagrams: 09/19/17 06:30 09/19/17 15:10 Labs: Laboratory Results - last 24 hr 09/18/17 09/19/17 09/19/17 23:23 06:30 06:30 WBC 13.6 H D RBC 3.71 Hgb 10.4 L Hct 34.1 L MCV 91.9 MCH 28.0 MCHC 30.5 L RDW 16.2 H Plt Count 193 MPV 9.9 pCO2 pO2 HCO3 ABG pH ABG Total CO2 ABG O2 Saturation ABG Base Excess ABG Potassium Glucose Lactate FiO2 Sodium 138 Potassium 7.2 H* D Chloride 102 Carbon Dioxide 21 Anion Gap 22 H BUN 77 H Creatinine 8.5 H* Est GFR ( Amer) 6 Est GFR (Non-Af Amer) 5 POC Glucose (mg/dL) 98 Random Glucose 110 Calcium 8.9 Total Bilirubin 0.4 AST 40 H ALT 33 Alkaline Phosphatase 85 Total Creatine Kinase Total Protein 8.4 H Albumin 3.8 Globulin 4.6 Albumin/Globulin Ratio 0.8 L Arterial Blood Potassium Urine Color Urine Appearance Urine pH Ur Specific [place] Urine Protein Urine Glucose (UA) Urine Ketones Urine Blood Urine Nitrate Urine Bilirubin Urine Urobilinogen Ur Leukocyte Esterase Urine RBC Urine WBC Ur Epithelial Cells Urine Bacteria Hyaline Casts Coarse Granular Casts Urine Eosinophils Ur Random Creatinine Ur Random Sodium Ur Random Potassium 09/19/17 09/19/17 09/19/17 09:00 09:00 09:57 WBC RBC Hgb Hct MCV MCH MCHC RDW Plt Count MPV pCO2 pO2 HCO3 ABG pH ABG Total CO2 ABG O2 Saturation ABG Base Excess ABG Potassium Glucose Lactate FiO2 Sodium Potassium Chloride Carbon Dioxide Anion Gap BUN Creatinine Est GFR ( Amer) Est GFR (Non-Af Amer) POC Glucose (mg/dL) Random Glucose Calcium Total Bilirubin AST ALT Alkaline Phosphatase Total Creatine Kinase 147 Total Protein Albumin Globulin Albumin/Globulin Ratio Arterial Blood Potassium Urine Color Dark yellow Urine Appearance Sl cloudy Urine pH 5.0 Ur Specific [place] >= 1.030 Urine Protein 100 H Urine Glucose (UA) Negative Urine Ketones Trace H Urine Blood Trace-lysed H Urine Nitrate Negative Urine Bilirubin Negative Urine Urobilinogen 0.2 Ur Leukocyte Esterase Negative Urine RBC 2 - 5 Urine WBC 0 - 2 Ur Epithelial Cells 6 - 8 Urine Bacteria Many Hyaline Casts 0 - 2 Coarse Granular Casts Trace H Urine Eosinophils Ur Random Creatinine 195 Ur Random Sodium 30 Ur Random Potassium 64.3 09/19/17 09/19/17 09/19/17 10:00 14:23 15:10 WBC RBC Hgb Hct MCV MCH MCHC RDW Plt Count MPV pCO2 65 H pO2 69.0 L HCO3 22.6 ABG pH 7.15 L* ABG Total CO2 24.6 ABG O2 Saturation 93.3 L ABG Base Excess -7.3 L ABG Potassium 5.4 H Glucose 113 H Lactate 0.9 FiO2 32.0 Sodium 138.0 141 Potassium 6.1 H* Chloride 106.0 102 Carbon Dioxide 23 Anion Gap 22 H BUN 79 H Creatinine 8.9 H* Est GFR ( Amer) 6 Est GFR (Non-Af Amer) 5 POC Glucose (mg/dL) Random Glucose 135 H Calcium 8.8 Total Bilirubin AST ALT Alkaline Phosphatase Total Creatine Kinase Total Protein Albumin Globulin Albumin/Globulin Ratio Arterial Blood Potassium 5.4 H Urine Color Urine Appearance Urine pH Ur Specific [place] Urine Protein Urine Glucose (UA) Urine Ketones Urine Blood Urine Nitrate Urine Bilirubin Urine Urobilinogen Ur Leukocyte Esterase Urine RBC Urine WBC Ur Epithelial Cells Urine Bacteria Hyaline Casts Coarse Granular Casts Urine Eosinophils Negative Ur Random Creatinine Ur Random Sodium Ur Random Potassium Assessment & Plan - Assessment and Plan (Free Text) Assessment: 57yo female with renal failure, and hypercapnia Renal Failure Hypercapnia, Resp Acidosis HIV on HAART PNA Hyperkalemia - currently afebrile, HD stable, comfortable in NAD, awake, alert, providing full history, protecting airway, no mental status issues - labs with hyperkalemia 7.2-->6.1 - renal and ID following Recommend: - BIPAP 14/5/40%, repeat ABG, CXR, would add steroids Solumedrol 40mg q8hr IV - antibiotics and HAART as per ID - BP control - minimize narcotic pain meds - follow up renal - HD catheter [place], consider dialysis - HD as per renal - check Cd4 count, Viral load - GI ppx - DVT ppx - continue monitor on tele
--- NOTE | 2017-09-19 17:20 | CP.PCM.CON ---
History of Present Illness - History of Present Illness History of Present Illness: Surgery: DR. Coombs CC: lethargy HPI: Patient is a 57 y/o female who is admitted to hospital and found to have metabolic acidosis and hyperkalemia. Surgery consulted for placement of dialysis catheter. Currently patient complains of SOB and lethargy. Denies chest pain. PMH: DM, HTN, OA of b/l knees, HIV, COPD, and osteoporosis PSH: ear FHx: DM, HTN, CAD, breast CA Social: 1/2 ppd for 30 yrs, admitted to prior heroin use for 6 months, on methadone 100 mg daily, denied EtOH Review of Systems - Review of Systems Systems not reviewed;Unavailable: Acuity of Condition Past Patient History - Infectious Disease Hx of Infectious Diseases: None - Past Social History Smoking Status: Current Some Days Smoker - CARDIAC Hx Hypertension: Yes - PULMONARY Hx Chronic Obstructive Pulmonary Disease (COPD): Yes Hx Sleep Apnea: Yes - HEENT Hx Deafness: Yes (L ear) - HEMATOLOGICAL/ONCOLOGICAL Hx Human Immunodeficiency Virus (HIV): Yes - MUSCULOSKELETAL/RHEUMATOLOGICAL Hx Falls: No - PSYCHIATRIC Hx Substance Use: Yes (h/o heroine use) - SURGICAL HISTORY Other/Comment: R ear surgery - ANESTHESIA Hx Anesthesia: Yes Hx Anesthesia Reactions: No Hx Malignant Hyperthermia: No Meds Allergies/Adverse Reactions: Allergies Allergy/AdvReac Type Severity Reaction Status Date / Time No Known Allergies Allergy Verified 09/18/17 17:56 - Medications Medications: Current Medications Acetaminophen (Tylenol 325mg Tab) 650 mg PO Q6H PRN PRN Reason: Pain, Mild (1-3) Last Admin: 09/18/17 23:52 Dose: 650 mg Albuterol/Ipratropium (Duoneb 3 Mg/0.5 Mg (3 Ml) Ud) 3 ml IH Q2H PRN PRN Reason: Shortness of Breath Artificial Tears (Artificial Tears) 0 ml OU Q1H PRN PRN Reason: Dry eyes Aspirin (Aspirin Chewable) 81 mg PO DAILY [facility] Last Admin: 09/19/17 09:54 Dose: 81 mg Gabapentin (Neurontin) 300 mg PO TID [facility] PRN Reason: Protocol Last Admin: 09/19/17 09:54 Dose: 300 mg Heparin Sodium (Porcine) (Heparin) 5,000 units SC Q12 [facility] PRN Reason: Protocol Last Admin: 09/19/17 09:35 Dose: 5,000 units Ceftriaxone Sodium (Rocephin 1 Gram Ivpb) 1 gm in 100 mls @ 100 mls/hr IVPB DAILY [facility] PRN Reason: Protocol Last Admin: 09/19/17 11:38 Dose: 100 mls/hr Azithromycin (Zithromax 500mg In Ns) 500 mg in 250 mls @ 167 mls/hr IVPB DAILY [facility] PRN Reason: Protocol Last Admin: 09/19/17 12:43 Dose: 167 mls/hr Sodium Chloride (Sodium Chloride 0.9%) 1,000 mls @ 50 mls/hr IV .Q20H [facility] Stop: 09/20/17 11:59 Sodium Bicarbonate 50 meq/ (Sodium Chloride) 1,050 mls @ 100 mls/hr IV .[id number] [facility] Methadone HCl (Methadone) 100 mg PO DAILY [facility] Last Admin: 09/19/17 10:52 Dose: Not Given Pantoprazole Sodium (Protonix Ec Tab) 40 mg PO ACB [facility] Physical Exam - Constitutional Appears: Confused, Chronically Ill - Head Exam Head Exam: ATRAUMATIC, NORMOCEPHALIC - Eye Exam Eye Exam: EOMI, Normal appearance - ENT Exam ENT Exam: Mucous Membranes Moist - Respiratory Exam Respiratory Exam: Respiratory Distress - Cardiovascular Exam Cardiovascular Exam: absent: Tachycardia - GI/Abdominal Exam GI & Abdominal Exam: Soft. absent: Distended, Tenderness Additional comments: obese - Psychiatric Exam Psychiatric exam: Anxious - Skin Skin Exam: Dry, Warm Results - Vital Signs Recent Vital Signs: Last Vital Signs Temp 98.2 F 09/19/17 12:00 Pulse 81 09/19/17 15:33 Resp 21 09/19/17 12:00 BP 120/80 09/19/17 12:00 Pulse Ox 92 L 09/19/17 08:00 - Labs Result Diagrams: 09/19/17 06:30 09/19/17 15:10 Labs: Laboratory Results - last 24 hr 09/18/17 09/19/17 09/19/17 23:23 06:30 06:30 WBC 13.6 H D RBC 3.71 Hgb 10.4 L Hct 34.1 L MCV 91.9 MCH 28.0 MCHC 30.5 L RDW 16.2 H Plt Count 193 MPV 9.9 pCO2 pO2 HCO3 ABG pH ABG Total CO2 ABG O2 Saturation ABG Base Excess ABG Potassium Glucose Lactate FiO2 Sodium 138 Potassium 7.2 H* D Chloride 102 Carbon Dioxide 21 Anion Gap 22 H BUN 77 H Creatinine 8.5 H* Est GFR ( Amer) 6 Est GFR (Non-Af Amer) 5 POC Glucose (mg/dL) 98 Random Glucose 110 Calcium 8.9 Total Bilirubin 0.4 AST 40 H ALT 33 Alkaline Phosphatase 85 Total Creatine Kinase Total Protein 8.4 H Albumin 3.8 Globulin 4.6 Albumin/Globulin Ratio 0.8 L Arterial Blood Potassium Urine Color Urine Appearance Urine pH Ur Specific [place] Urine Protein Urine Glucose (UA) Urine Ketones Urine Blood Urine Nitrate Urine Bilirubin Urine Urobilinogen Ur Leukocyte Esterase Urine RBC Urine WBC Ur Epithelial Cells Urine Bacteria Hyaline Casts Coarse Granular Casts Urine Eosinophils Ur Random Creatinine Ur Random Sodium Ur Random Potassium 09/19/17 09/19/17 09/19/17 09:00 09:00 09:57 WBC RBC Hgb Hct MCV MCH MCHC RDW Plt Count MPV pCO2 pO2 HCO3 ABG pH ABG Total CO2 ABG O2 Saturation ABG Base Excess ABG Potassium Glucose Lactate FiO2 Sodium Potassium Chloride Carbon Dioxide Anion Gap BUN Creatinine Est GFR ( Amer) Est GFR (Non-Af Amer) POC Glucose (mg/dL) Random Glucose Calcium Total Bilirubin AST ALT Alkaline Phosphatase Total Creatine Kinase 147 Total Protein Albumin Globulin Albumin/Globulin Ratio Arterial Blood Potassium Urine Color Dark yellow Urine Appearance Sl cloudy Urine pH 5.0 Ur Specific [place] >= 1.030 Urine Protein 100 H Urine Glucose (UA) Negative Urine Ketones Trace H Urine Blood Trace-lysed H Urine Nitrate Negative Urine Bilirubin Negative Urine Urobilinogen 0.2 Ur Leukocyte Esterase Negative Urine RBC 2 - 5 Urine WBC 0 - 2 Ur Epithelial Cells 6 - 8 Urine Bacteria Many Hyaline Casts 0 - 2 Coarse Granular Casts Trace H Urine Eosinophils Ur Random Creatinine 195 Ur Random Sodium 30 Ur Random Potassium 64.3 09/19/17 09/19/17 09/19/17 10:00 14:23 15:10 WBC RBC Hgb Hct MCV MCH MCHC RDW Plt Count MPV pCO2 65 H pO2 69.0 L HCO3 22.6 ABG pH 7.15 L* ABG Total CO2 24.6 ABG O2 Saturation 93.3 L ABG Base Excess -7.3 L ABG Potassium 5.4 H Glucose 113 H Lactate 0.9 FiO2 32.0 Sodium 138.0 141 Potassium 6.1 H* Chloride 106.0 102 Carbon Dioxide 23 Anion Gap 22 H BUN 79 H Creatinine 8.9 H* Est GFR ( Amer) 6 Est GFR (Non-Af Amer) 5 POC Glucose (mg/dL) Random Glucose 135 H Calcium 8.8 Total Bilirubin AST ALT Alkaline Phosphatase Total Creatine Kinase Total Protein Albumin Globulin Albumin/Globulin Ratio Arterial Blood Potassium 5.4 H Urine Color Urine Appearance Urine pH Ur Specific [place] Urine Protein Urine Glucose (UA) Urine Ketones Urine Blood Urine Nitrate Urine Bilirubin Urine Urobilinogen Ur Leukocyte Esterase Urine RBC Urine WBC Ur Epithelial Cells Urine Bacteria Hyaline Casts Coarse Granular Casts Urine Eosinophils Negative Ur Random Creatinine Ur Random Sodium Ur Random Potassium Assessment & Plan - Assessment and Plan (Free Text) Assessment: 57 y/o female w/ metabolic acidosis and hyperkalemia in need of dialysis access Plan: -trialysis catheter placed bedside right groin -catheter ok to use -see procedure note in detail -d/w Dr. Malvin Unger PGY3 - Date & Time Date: 09/19/17 Time: 17:24
--- NOTE | 2017-09-19 17:21 | PCM.PROC ---
Procedures Attestation:: I certify that I have explained the specified Operation(s) or Procedure(s), risks, benefits and reasonable alternatives to the Patient and/or other person responsible. The opportunity was given to ask questions and all questions answered - Central Line Placement Right Femoral Hemodialysis Access Aseptic technique was employed throughout the procedure: Hand Hygiene done prior to procedure, Full sterile barriers (mask, hair cover, sterile gown, sterile gloves), Chloraprep Antiseptic: 2 minute prep for Femoral CVP Time Out Performed: Yes Local Anesthesia Used: Lidocaine 1% Amount of Anesthesia Used (mls): 2 Ultrasound Used for Placement: Yes Central Line Lumen Inserted: triple Central Line Length: 20 cm Post Procedure: Sutured in Place, Good Blood Return, All Ports Aspirated, Flushed, Capped, Sterile Dressing Applied Secured by: Securement device Post procedure dressing: Chlorhexidine disc (Biopatch) Post Procedure X-Ray: No Patient Tolerated Procedure: Well, Other (Patient required multiple dilation attempts before catheter was able to be threaded. ) Immediate Complications: None
--- NOTE | 2017-09-19 17:25 | CARD ---
APPROVED REPORT EKG Measurement Heart [id number] <Conclusion> Normal sinus rhythm Normal ECG
[2017-09-19 17:26] LABS: ARTERIAL BLOOD GAS HCO3 20.2 mmol/L (21-28); ARTERIAL BLOOD GAS HEMOGLOBIN 10.2 g/dL (11.7-17.4); ARTERIAL BLOOD GAS O2 CAPACITY 14.2 mL/dl (16-24); ARTERIAL BLOOD GAS O2 SAT 98.8 % (95-98); ARTERIAL BLOOD GAS PCO2 53 mm/Hg (35-45); ARTERIAL BLOOD GAS TCO2 21.8 mmol.L (22-28)
[2017-09-19 17:29] LABS: ARTERIAL BLOOD GAS PH 7.19 (7.35-7.45)
[2017-09-19] MEDS ORDERED: Dextrose 50% SYRINGE Inj (50 ml) ONE (17:30)
[2017-09-19] MEDS: Sod Polystyrene Sulf 15 gm/60 ml Susp PO ONE ×2 (17:30→17:46)
[2017-09-19] MEDS ORDERED: Sod Polystyrene Sulf 15 gm/60 ml Susp PO STA (17:53)
--- NOTE | 2017-09-19 18:26 | CP.PCM.PN ---
Subjective - Date & Time of Evaluation Date of Evaluation: 09/19/17 Time of Evaluation: 18:25 - Subjective Subjective: Patient reevaluated, currently awake, alert, NAD, comfortable, OFF bipap. Dialysis shiley catheter placed by surgery, possible HD tonight. Patient to be transferred to MICU for further care. Objective - Vital Signs/Intake and Output Vital Signs (last 24 hours): Temp Pulse Resp BP Pulse Ox 98.2 F 81 21 120/80 92 L 09/19/17 12:00 09/19/17 15:33 09/19/17 12:00 09/19/17 12:00 09/19/17 08:00 Intake and Output: 09/19/17 09/19/17 06:59 18:59 Intake Total 120 Balance 120 - Medications Medications: Current Medications Acetaminophen (Tylenol 325mg Tab) 650 mg PO Q6H PRN PRN Reason: Pain, Mild (1-3) Last Admin: 09/18/17 23:52 Dose: 650 mg Albuterol/Ipratropium (Duoneb 3 Mg/0.5 Mg (3 Ml) Ud) 3 ml IH Q2H PRN PRN Reason: Shortness of Breath Artificial Tears (Artificial Tears) 0 ml OU Q1H PRN PRN Reason: Dry eyes Aspirin (Aspirin Chewable) 81 mg PO DAILY [facility] Last Admin: 09/19/17 09:54 Dose: 81 mg Gabapentin (Neurontin) 300 mg PO TID VELIA PRN Reason: Protocol Last Admin: 09/19/17 09:54 Dose: 300 mg Heparin Sodium (Porcine) (Heparin) 5,000 units SC Q12 VELIA PRN Reason: Protocol Last Admin: 09/19/17 09:35 Dose: 5,000 units Ceftriaxone Sodium (Rocephin 1 Gram Ivpb) 1 gm in 100 mls @ 100 mls/hr IVPB DAILY VELIA PRN Reason: Protocol Last Admin: 09/19/17 11:38 Dose: 100 mls/hr Azithromycin (Zithromax 500mg In Ns) 500 mg in 250 mls @ 167 mls/hr IVPB DAILY [facility]EL[facility] PRN Reason: Protocol Last Admin: 09/19/17 12:43 Dose: 167 mls/hr Sodium Chloride (Sodium Chloride 0.9%) 1,000 mls @ 50 mls/hr IV .Q20H [facility] Last Admin: 09/19/17 17:51 Dose: Not Given Sodium Bicarbonate 50 meq/ (Sodium Chloride) 1,050 mls @ 100 mls/hr IV .[id number] [facility] Insulin Human Regular (Humulin R Low) 0 units SC ACHS VELIA PRN Reason: Protocol Methadone HCl (Methadone) 100 mg PO DAILY [facility] Last Admin: 09/19/17 10:52 Dose: Not Given Pantoprazole Sodium (Protonix Ec Tab) 40 mg PO ACB VELIA - Labs Labs: 09/19/17 06:30 09/19/17 15:10 PT 12.4 SECONDS (9.4-12.5) 09/18/17 19:00 INR 1.09 (0.93-1.08) H 09/18/17 19:00 APTT 26.7 Seconds (25.1-36.5) 09/18/17 19:00
[2017-09-19] MEDS ORDERED: Sod Polystyrene Sulf 15 gm/60 ml Susp PR ONE (18:39)
--- NOTE | 2017-09-19 19:06 | CP.PCM.PN ---
<Efrem Mireles - Last Filed: 09/19/17 19:14> Subjective - Date & Time of Evaluation Date of Evaluation: 09/19/17 Time of Evaluation: 07:30 - Subjective Subjective: Efrem Mireles DO PGY1 - IM Progress Note Patient seen and examined at bedside. Patient was admitted overnight for possible pneumonia and acute renal failure. Patient was very somnolent this morning, though arousable and oriented to person, place, and time. Patient was noted to be acutely hyperkalmic on AM labs, and stat EKG and hyperkalemia cocktail was ordered (D50, Insulin, Calcium Gluconate, nebulized albuterol, and kayexalate). Unfortunately, per nursing staff, patient was initially uncooperative, and she did not get the EKG or any of those medications for almost 1.5 hours, but patient remained hemodynamically stable and mentating normally. When the EKG was done, did not show any acute abnormalities or arrhythmias. Patient was transferred to telemetry. Patient was later seen by Dr. Polk (cable coverer), at which point patient also admitted to self-medicating with septra, one pill daily, for over a month, for which she was tearful and remorseful. Patient also reported using Motrin/Alleve twice in the past week, but none before then. Patient does take Aspirin 81mg daily. Beasley placed, and urine sent for UA, Ulytes, UCr, and eosinophils. Renal US and NM renal scan ordered. Throughout the day, patient was getting progressively more somnolent. ABG was ordered, and was interpreted as primary respiratory acidosis with concomitant metabolic acidosis. Patient was started on BIPAP for the respiratory acidosis, and a pulmonology consult was called, who recommended continued BIPAP and repeat ABG. Patient also started on bicarb drip. At this point, patient had remained severely oliguric, despite IV fluid administration in excess of 2L since admission, and per nephrology, would likely require urgent/emergent dialysis. Patient was too somnolent to provide informed consent for any procedures, so next of kin was called who consented for placement of a Trialysis catheter for temporary dialysis. Surgery was consulted for placement of the catheter, which was successfully done at bedside , without any complications. Finally, repeat BMP and ABG were done. Patient had received kayexalate earlier in the day, though has not had a bowel movement yet. BMP showed slight improvement in her potassium, but considering lack of bowel movement, kayexalate enema was ordered. Also on the BMP, azotemia continued to worsen. Patient is started on IV fluids, and was again given the hyperkalemia cocktail, with a repeat BMP ordered 2 hours later, per nephrology, who will determine whether patient requires urgent dialysis after that is resulted at 8PM. Repeat ABG showed very mild improvement in acidosis, but moderate improvement in hypercarbia and hypoxia. Patient is to remain on BIPAP continuously, and made NPO to avoid aspiration, with repeat ABG ordered for the morning. After being placed on BIPAP, patient is now much more awake and alert, though still with severe clonus/asterixis secondary to uremia. Will continue treatment for presumed pneumonia, continue BIPAP, continue nebulized breathing treatments , start sliding-scale insulin and accuchecks, avoid nephrotoxic medications ( NSAIDs, metformin), avoid ACEi/ARB for hyperkalemia, and avoid sedatives ( methadone). Throughout the day, patient was repeatedly seen, examined, and plan was discussed and enacted with attending, Dr. Rasheed <Dagoberto Rasheed - Last Filed: 09/20/17 17:11> Objective - Vital Signs/Intake and Output Vital Signs (last 24 hours): Temp Pulse Resp BP Pulse Ox 98.6 F 93 H 28 H 136/48 L 79 L 09/20/17 16:00 09/20/17 15:30 09/20/17 15:30 09/20/17 15:05 09/20/17 15:30 Intake and Output: 09/20/17 09/20/17 06:59 18:59 Intake Total 897 Output Total 1000 Balance -103 - Medications Medications: Current Medications Acetaminophen (Tylenol 325mg Tab) 650 mg PO Q6H PRN PRN Reason: Pain, Mild (1-3) Last Admin: 09/18/17 23:52 Dose: 650 mg Acetaminophen (Tylenol 325mg Tab) 650 mg PO Q4H PRN PRN Reason: Pain, moderate (4-7) Albuterol/Ipratropium (Duoneb 3 Mg/0.5 Mg (3 Ml) Ud) 3 ml IH Q2H PRN PRN Reason: Shortness of Breath Last Admin: 09/20/17 08:47 Dose: 3 ml Artificial Tears (Artificial Tears) 0 ml OU Q1H PRN PRN Reason: Dry eyes Aspirin (Aspirin Chewable) 81 mg PO DAILY [facility] Last Admin: 09/19/17 09:54 Dose: 81 mg Budesonide (Pulmicort Respules) 0.5 mg IH [id number] [facility]ELIA Gabapentin (Neurontin) 300 mg PO TID [facility]ELIA PRN Reason: Protocol Last Admin: 09/19/17 09:54 Dose: 300 mg Heparin Sodium (Porcine) (Heparin) 5,000 units SC Q12 [facility] PRN Reason: Protocol Last Admin: 09/20/17 09:42 Dose: 5,000 units Ceftriaxone Sodium (Rocephin 1 Gram Ivpb) 1 gm in 100 mls @ 100 mls/hr IVPB DAILY [facility] PRN Reason: Protocol Last Admin: 09/20/17 09:43 Dose: 100 mls/hr Azithromycin (Zithromax 500mg In Ns) 500 mg in 250 mls @ 167 mls/hr IVPB DAILY [facility] PRN Reason: Protocol Last Admin: 09/20/17 09:51 Dose: 167 mls/hr Sodium Bicarbonate 50 meq/ (Sodium Chloride) 1,050 mls @ 80 mls/hr IV .[id number] [facility] Last Admin: 09/20/17 10:24 Dose: 80 mls/hr NOREPINEPHRINE BIT/0.9 % NACL (Levophed 4 Mg/ 250 Ml Ns Premixed) 4 mg in 250 mls @ 15 mls/hr IV .[id number] PRN; Protocol; 4 MCG/MIN PRN Reason: TITRATE PER MD ORDER Last Titration: 09/20/17 02:45 Dose: 7 mcg/min, 26.25 mls/hr Insulin Human Regular (Humulin R Low) 0 units SC ACHS [facility]ELIA PRN Reason: Protocol Last Admin: 09/20/17 12:00 Dose: 1 units Methadone HCl (Methadone) 100 mg PO DAILY [facility] Last Admin: 09/19/17 10:52 Dose: Not Given Methylprednisolone (Solu-Medrol) 40 mg IVP Q12 [facility] Last Admin: 09/20/17 11:00 Dose: 40 mg Pantoprazole Sodium (Protonix Ec Tab) 40 mg PO ACB [facility] Last Admin: 09/20/17 09:41 Dose: 40 mg - Labs Labs: 09/20/17 08:40 09/20/17 08:40 PT 12.4 SECONDS (9.4-12.5) 09/18/17 19:00 INR 1.09 (0.93-1.08) H 09/18/17 19:00 APTT 26.7 Seconds (25.1-36.5) 09/18/17 19:00 Attending/Attestation - Attestation I have personally seen and examined this patient.: Yes I have fully participated in the care of the patient.: Yes I have reviewed all pertinent clinical information, including history, physical exam and plan: Yes Notes (Text): 09/20/17 17:08 Patient was seen and exaimned with medical laboratory technicians. 57yo female with PMH of HIV,Obesity ,copd with acute renal failure, and hypercapnic Resp Failure and hyperkalemia. Continue IV fluid,Patient is treated for hyperkalemia, will follow up LABS. Continue BIPAP Case was discussed with ICU, and Nephrology
[2017-09-19 19:27] LABS: CALCIUM 8.7 mg/dL (8.4-10.5)
[2017-09-19] MEDS: Insulin Reg-LOW-Coverage SC SCH (22:00)
--- NOTE | 2017-09-20 00:04 | CON ---
DATE: 09/19/2017 COVERING FOR: Dr. Lange. No call received for consultation. REASON FOR CONSULTATION: Acute kidney injury, hyperkalemia. HISTORY OF PRESENTING ILLNESS: A 57-year-old morbidly obese young woman, came to the emergency room yesterday with complaints of unsteadiness, difficulty walking, lower extremity pain, difficulty breathing. Patient reports she has been feeling these symptoms for 1 week. She denies any fever. She denies any chills. She denies any abdominal pain. She denies any nausea, vomiting or diarrhea. She reports increased urine output for 3-4 days. She denies any burning in the urine. Currently, patient is very groggy, but she is arousable. She is awake, alert, and oriented. She denies any knowledge of any kidney disease. She reports she was admitted to [facility] some time last year. She was told that her kidneys are slow; but by the time of discharge, her kidney function was normal, she reports. She last went to her doctor in 05/2017. She reports that she has been taking Septra every day because of infection. She is not specific about what kind of infection. She reports that she is compliant with her antiretrovirals, her diabetes medication and her blood pressure medication. PAST MEDICAL AND SURGICAL HISTORY: Morbid obesity, hypertension for many years, NIDDM for 7-8 years, HIV, on antiretrovirals, COPD, osteoarthritis. FAMILY HISTORY: Diabetes, hypertension, CAD, breast cancer. SOCIAL HISTORY: Current smoker, prior heroin snorting. No alcohol use, no IV drug abuse. ALLERGIES: NO KNOWN DRUG ALLERGIES. MEDICATIONS: Metformin, losartan, Reyataz, Norvir, gabapentin, methadone 100 mg daily. REVIEW OF SYSTEMS: All systems are reviewed, pertinent positives as mentioned in history of presenting illness, rest is unremarkable. PHYSICAL EXAMINATION: GENERAL: Morbidly obese, middle-aged lady, lying in bed. VITAL SIGNS: Blood pressure 120/80, heart rate 68, respiratory rate 21, temperature 98.2. HEENT: Normocephalic, atraumatic. NECK: Supple, no JVD. LUNGS: Bilateral equal air entry, bilaterally equal expansion, bilateral rhonchi, minimal rales. CARDIAC: S1, S2, regular rate and rhythm, no murmur, no rub. ABDOMEN: Obese, distended, soft, nontender, bowel sounds present. EXTREMITIES: No lower extremity edema. INTAKE AND OUTPUT: 120/not charted. LABORATORY DATA: WBC 13.6, hemoglobin 10.4, hematocrit 34, platelets 193. Sodium 138, potassium 7.2, chloride 102, CO2 21, BUN 77, creatinine 8.5, glucose 110, calcium 8.9, total bilirubin 0.4, AST 40, ALT 33, albumin 3.8. Urinalysis; dark yellow, cloudy, pH 5.0, specific gravity greater than 1.030, protein 100, ketones trace, blood trace lysed, urine eosinophils negative, urine creatinine 195, urine sodium 30. CURRENT MEDICATIONS: Aspirin, DuoNeb, heparin, insulin, methadone, Neurontin, Protonix, ceftriaxone 1 g daily, sodium bicarbonate 1 amp, Tylenol, Zithromax. Patient received calcium gluconate, albuterol 10 mg via nebulizer, Kayexalate, D50 one amp, insulin regular 10 units. ASSESSMENT: 1. Acute kidney injury suspect, ? underlying chronic kidney disease. Etiology of acute kidney injury likely to be acute tubular necrosis in the setting of multiple possible nephrotoxic agents. Antiretrovirals plus Angiotensin II receptor jose plus Bactrim. 2. Rule out drug use. 3. Rule out acute interstitial nephritis. 4. Severe hyperkalemia. 5. Mixed metabolic and respiratory acidosis. 6. Morbid obesity. 7. Nso-afyjxpc-lkprgucom diabetes mellitus. 8. History of hypertension. 9. Component of prerenal azotemia ?, urine specific gravity of 1.030 consistent with urine concentration. PLAN: 1. The patient is seen along with residents. Case discussed at length with house staff. Treat hyperkalemia. If hyperkalemia does not respond, may need dialysis. 2. Fluid challenge. 3. Avoid nephrotoxins. 4. Dose all antibiotics for creatinine clearance less than 10 mL per minute. 5. Close monitoring. 6. Repeat labs in 4 hours. Suellen Polk MD MTDD
[2017-09-20] MEDS: NOREPINEPHRINE BIT/0.9 % NACL 4 MG/250 ML BAG IV PRN ×2 (00:55→19:05)
[2017-09-20 01:11] LABS: VENOUS BLOOD GAS BASE EXCESS -4.1 mmol/L (0.0-2.0); VENOUS BLOOD GAS PO2 54 mm/Hg (30-55); VENOUS BLOOD PH 7.22 (7.32-7.43)
[2017-09-20 01:34] LABS: ARTERIAL BLOOD GAS HCO3 23.7 mmol/L (21-28); ARTERIAL BLOOD GAS HEMOGLOBIN 9.5 g/dL (11.7-17.4); ARTERIAL BLOOD GAS O2 CAPACITY 13.3 mL/dl (16-24); ARTERIAL BLOOD GAS O2 CONTENT 13.1 ML/dl (15-23); ARTERIAL BLOOD GAS O2 SAT 98.3 % (95-98); ARTERIAL BLOOD GAS PCO2 65 mm/Hg (35-45); ARTERIAL BLOOD GAS TCO2 25.7 mmol.L (22-28)
[2017-09-20 01:41] LABS: ARTERIAL BLOOD GAS PH 7.17 (7.35-7.45)
[2017-09-20 01:45] LABS: CALCIUM 8.2 mg/dL (8.4-10.5)
[2017-09-20 05:06] LABS: ARTERIAL BLOOD GAS HCO3 24.1 mmol/L (21-28); ARTERIAL BLOOD GAS O2 CAPACITY 14.1 mL/dl (16-24); ARTERIAL BLOOD GAS O2 CONTENT 13.9 ML/dl (15-23); ARTERIAL BLOOD GAS O2 SAT 98.5 % (95-98); ARTERIAL BLOOD GAS PCO2 63 mm/Hg (35-45)
[2017-09-20 05:15] LABS: ARTERIAL BLOOD GAS PH 7.19 (7.35-7.45)
[2017-09-20] MEDS ORDERED: Sodium Bicarbonate (8.4%) 50 Meq Syringe IVP ONE ×2 (05:55→06:07)
[2017-09-20 05:57] LABS: HEMOGLOBIN 9.9 g/dL (12.0-16.0); MEAN CELL VOLUME 91.8 fl (80.0-105.0); MEAN CORPUSCULAR HEMOGLOBIN 27.9 pg (25.0-35.0); MEAN CORPUSCULAR HGB CONC 30.4 g/dl (31.0-37.0); MEAN PLATELET VOLUME 9.9 fl (7.0-11.0); RBC 3.55 10^6/uL (3.5-6.1); RED CELL DISTRIBUTION WIDTH 16.2 % (11.5-14.5); WHITE BLOOD COUNT 11.8 10^3/ul (4.5-11.0)
[2017-09-20 06:37] LABS: ALB/GLOB RATIO 0.8 (1.1-1.8); ALBUMIN 3.3 g/dL (3.0-4.8)
[2017-09-20] MEDS ORDERED: Sod Polystyrene Sulf 15 gm/60 ml Susp PO STA (07:14)
[2017-09-20] MEDS ORDERED: Albuterol 0.5% Inhal Sol (5 mg/ ml) 20 ml IH STA (07:15)
[2017-09-20 08:28] LABS: ARTERIAL BLOOD GAS HCO3 27.6 mmol/L (21-28); ARTERIAL BLOOD GAS HEMOGLOBIN 10.1 g/dL (11.7-17.4); ARTERIAL BLOOD GAS O2 CAPACITY 13.9 mL/dl (16-24); ARTERIAL BLOOD GAS O2 CONTENT 6.1 ML/dl (15-23); ARTERIAL BLOOD GAS O2 SAT 43.8 % (95-98); ARTERIAL BLOOD GAS PCO2 63 mm/Hg (35-45); ARTERIAL BLOOD GAS PH 7.25 (7.35-7.45); ARTERIAL BLOOD GAS TCO2 29.5 mmol.L (22-28)
[2017-09-20] MEDS: Insulin Reg-LOW-Coverage SC SCH ×4 (08:37→22:00)
[2017-09-20 08:47] LABS: BASO # 0.01 K/mm3 (0.0-2.0); BASO % 0.1 % (0.0-3.0); EOS # 0.1 (0.0-0.7); GRAN # 9.32 (1.4-6.5); GRAN % 79.6 % (50.0-68.0); HEMOGLOBIN 9.9 g/dL (12.0-16.0); LYMPH # 1.8 (1.2-3.4); LYMPH % 14.9 % (22.0-35.0); MEAN CELL VOLUME 90.9 fl (80.0-105.0); MEAN CORPUSCULAR HGB CONC 30.8 g/dl (31.0-37.0); MEAN PLATELET VOLUME 9.8 fl (7.0-11.0); MONO # 0.5 (0.1-0.6); MONO % 4.4 % (1.0-6.0); RBC 3.53 10^6/uL (3.5-6.1); RED CELL DISTRIBUTION WIDTH 16.2 % (11.5-14.5); WHITE BLOOD COUNT 11.7 10^3/ul (4.5-11.0)
[2017-09-20] MEDS: Albuterol-Ipratrop 3 mg / 0.5 (3 ml) UD IH PRN (08:47)
--- NOTE | 2017-09-20 08:56 | RAD ---
HISTORY: evaluate congestion and/or new infiltrate COMPARISON: 09/19/2017 FINDINGS: LUNGS: No active pulmonary disease. PLEURA: No significant pleural effusion identified, no pneumothorax apparent. CARDIOVASCULAR: Moderate cardiomegaly OSSEOUS STRUCTURES: No significant abnormalities. VISUALIZED UPPER ABDOMEN: Normal. OTHER FINDINGS: None. IMPRESSION: No active disease.
[2017-09-20 09:18] LABS: ALB/GLOB RATIO 0.8 (1.1-1.8); ALBUMIN 3.5 g/dL (3.0-4.8); CALCIUM 8.2 mg/dL (8.4-10.5)
[2017-09-20] MEDS: Pantoprazole 40 mg EC Tab PO SCH (09:41)
[2017-09-20] MEDS: cefTRIAXone 1 gm 1 GM/100 ML BAG IVPB SCH (09:43)
[2017-09-20] MEDS: Azithromycin 500MG/NS 250ml 500 MG/250 ML BAG IVPB SCH (09:51)
[2017-09-20 10:41] LABS: URINE BILIRUBIN NEGATIVE (NEGATIVE); URINE BLOOD LARGE (NEGATIVE); URINE GLUCOSE (UA) NEGATIVE (NEGATIVE); URINE LEUKOCYTE ESTERASE NEGATIVE Leu/uL (NEGATIVE); URINE PROTEIN 30 mg/dL (<30 mg/dL); URINE UROBILINOGEN 0.2 E.U./dL (<1 E.U./dL)
[2017-09-20 10:43] LABS: URINE COLOR YELLOW (YELLOW)
[2017-09-20 10:44] LABS: URINE APPEARANCE CLEAR (CLEAR)
[2017-09-20 10:47] LABS: URINE RBC 20 - 25 /hpf (0-2)
[2017-09-20 10:48] LABS: URINE AMORPHOUS SEDIMENT FEW; URINE BACTERIA MANY (NEG); URINE COARSE GRANULAR CAST TRACE /hpf (0-2)
[2017-09-20] MEDS: MethylPREDNISolone 40 mg Vial IVP SCH ×2 (11:00→21:41)
[2017-09-20 11:05] LABS: BARBITURATES, UR NEGATIVE (NEGATIVE); BENZODIAZEPINES, UR NEGATIVE (NEGATIVE); OPIATES, UR NEGATIVE (NEGATIVE); PHENCYCLIDINE, UR NEGATIVE (NEGATIVE)
--- NOTE | 2017-09-20 11:25 | US ---
PROCEDURE: Ultrasound of the Kidneys HISTORY: hanna with h/o assymetric kidneys COMPARISON: None available. TECHNIQUE: Sonogram of the kidneys. FINDINGS: RIGHT KIDNEY: Measures: 11.0 x 6.02 x 6.22 cm. Normal in size, contour and echogenicity. No stone, solid mass lesion or hydronephrosis visualized. LEFT KIDNEY: Measures: 12.11 x 6.08 x 6.44 cm. Normal in size, contour and echogenicity. No stone, solid mass lesion or hydronephrosis visualized. Two separate cysts are seen in the lower pole ranging in size from 1.7 too 2.5 cm in diameter OTHER FINDINGS: Gallstone IMPRESSION: Unremarkable renal sonogram.
--- NOTE | 2017-09-20 11:27 | RAD ---
HISTORY: am COMPARISON: Earlier same day FINDINGS: LUNGS: No active pulmonary disease. PLEURA: No significant pleural effusion identified, no pneumothorax apparent. CARDIOVASCULAR: Mild to moderate cardiomegaly. Mild vascular congestion OSSEOUS STRUCTURES: No significant abnormalities. VISUALIZED UPPER ABDOMEN: Normal. OTHER FINDINGS: None. IMPRESSION: Cardiomegaly and mild vascular congestion
[2017-09-20 12:33] LABS: IRON 22 ug/dL (45-180)
[2017-09-20 12:43] LABS: % IRON SATURATION 9 % (20-55); TOTAL IRON BINDING CAPACITY 240 ug/dL (265-497)
--- NOTE | 2017-09-20 13:31 | PN ---
DATE: 09/20/2017 INFORMATION SECURITY CONSULTANT NOTE SUBJECTIVE: The patient is awake and alert and at this time refusing to use the BiPAP. She is answering all questions appropriately and is lying in bed at this time. The patient is requesting to eat and did allow us to repeat her arterial blood gas because she has a respiratory acidosis with hypercapnia and obesity hypoventilation syndrome. Hemodynamically, at this time, she is stable with blood pressure support via Levophed. The patient is scheduled for dialysis today because of renal failure and hyperkalemia and slight metabolic acidosis. PHYSICAL EXAMINATION VITAL SIGNS: Note that her temperature is 97.7, her pulse is 74, respirations are 15 and BP is 113/68. SKIN: Warm and dry. HEENT: Head is atraumatic, normocephalic. Eyes reactive to light. Ears, nose and throat seemed to be within normal limits. NECK: Supple. No JVD, no thyroid enlargement, no lymph nodes. HEART: Has regular rate and rhythm. Normal S1, S2. LUNGS: Reveal mild decreased breath sounds at the bases. ABDOMEN: Soft. Decreased bowel sounds, but obese. GENITALIA AND RECTAL: Deferred. MUSCULOSKELETAL: No joint deformities. EXTREMITIES: Reveal positive lower extremity edema. NEUROLOGIC: The patient is responsive, awake and alert at this time. She is moving all extremities. LABORATORY DATA: As far as her laboratories, her white count is 11.8, hemoglobin is 9.9, hematocrit 32.6 and platelets of 180,000. Arterial blood gas reveals a pH of 7.19, pCO2 of 63, and pO2 of 123. This was on respiratory support with BiPAP. The patient's sodium is 141, potassium 5.6, chloride 104, CO2 of 24 with a BUN of 86, creatinine of 7.2 and a glucose of 104. As far as the patient's chest x-ray, there are no obvious infiltrates, but poor quality due to the patient's size and obesity. IMPRESSION: This patient has hypercapnic respiratory failure, most likely secondary to obesity hypoventilation syndrome. She has severe chronic obstructive pulmonary disease and there may be a component of pneumonia. The patient has acute renal failure with episodes of altered mental status, there may be uremia associated. She has history of human immunodeficiency virus, diabetes, hypertension, arthritis as well as anemia. The patient has hyperkalemia and possible metabolic acidosis. She does have hypotension as well and there may be a component of sepsis. PLAN: As far as our plan, we will continue with the bicarb drip. Consults for Renal has been conducted and she is scheduled for dialysis today. The patient is ordered to have a BiPAP and we will follow her arterial blood gases and chest x-ray closely. She is getting antibiotics of Rocephin and Zithromax. The patient as stated before is on a bicarb drip and she is getting Levophed to support her blood pressure. The patient is getting DuoNeb as a bronchodilator and we will follow closely and treat aggressively along with the other consultants and the primary care doctor. Ari Ardon MD
--- NOTE | 2017-09-20 15:30 | PN ---
DATE: 09/20/2017 SUBJECTIVE: The patient is seen in the ICU. She is awake. She is alert. She is responsive. She is still very shaky. She has asterixis. She is complaining of being hungry. She denies any abdominal pain, nausea, vomiting or diarrhea. She complains of pain in her legs. She also complains of pain in her lower abdomen. PHYSICAL EXAMINATION: GENERAL: Morbidly obese middle-aged lady, sitting in bed in the ICU, in moderate distress. VITAL SIGNS: Blood pressure 113/68, heart rate 74, respiratory rate 15, temperature 98.7. HEENT: Normocephalic, atraumatic, positive pallor. NECK: Supple, no JVD. LUNGS: Bilateral equal air entry, bilateral equal expansion, no rales, no rhonchi. CARDIAC: S1 and S2, regular rate and rhythm, no murmur, no rub. ABDOMEN: Obese, distended, soft, nontender, bowel sounds present. EXTREMITIES: No lower extremity edema, positive asterixis. INTAKE AND OUTPUT: 897/1000. LABORATORY DATA: WBC 11.7, hemoglobin 9.9, hematocrit 32, platelets 178. Sodium 143, potassium 4.9, chloride 104, CO2 of 26, BUN 79, creatinine 5.9, glucose 100, calcium 8.2, phosphorus 7.4, magnesium 2.3. Iron saturation 9, iron 22. Blood cultures, no growth. Chest x-ray: Cardiomegaly with mild vascular congestion. DJD, minimal patellofemoral joint effusion. No acute fracture. Renal ultrasound: Right kidney 11 cm, left kidney 12 cm. Unremarkable renal sonogram. PH 7.25, pCO2 of 63, pO2 of 23 on the VBG. CURRENT MEDICATIONS Aspirin, DuoNeb, heparin, insulin, Levophed at 7 mcg per minute, methadone 100 not given, Neurontin, Protonix, ceftriaxone 1 g daily, half-normal saline with 1 amp of bicarb at 80, Solu-Medrol, Tylenol, Zithromax. ASSESSMENT: 1. Acute kidney injury. 2. Severe hyperkalemia. 3. Severe mixed metabolic acidosis and respiratory acidosis. 4. Hypotension. 5. Respiratory depression. 6. Anemia. 7. Gpm-irggsmf-bvrkrmkce diabetes mellitus. 8. Hypertension. 9. Human immunodeficiency virus. PLAN: 1. Urgent dialysis now. 2. Close monitoring in the ICU. 3. Continue IV fluids. 4. Hold ARB. 5. Hold metformin. 6. ? hold antiretrovirals. 7. Monitor urine output. 8. Suspect she has ATN in the setting of multiple potentially nephrotoxic agents, hypotension, also a component of prerenal azotemia. Renal function seems to be improving with hydration, hopefully will not need further dialysis. Long time is spent in discussing the case with multiple physicians, long time is spent in discussing management with the patient and dialysis unit. More than 35 minutes was spent in the care of this critically ill patient. Suellen Polk MD
--- NOTE | 2017-09-20 16:00 | CARD ---
APPROVED REPORT EKG Measurement Heart [id number] CO [id number] <Conclusion> Normal sinus rhythm Possible Anterior infarct, age undetermined Abnormal ECG
--- NOTE | 2017-09-20 16:32 | CP.PCM.PN ---
<JavierVictor Hugo - Last Filed: 09/20/17 20:14> Subjective - Date & Time of Evaluation Date of Evaluation: 09/20/17 Time of Evaluation: 09:00 - Subjective Subjective: Patient seen and examined at bedside. Patient awake, alert and oriented. Patient took off her BIPAP, asked for some cereal, and wanted to speak to her family. Objective - Vital Signs/Intake and Output Vital Signs (last 24 hours): Temp Pulse Resp BP Pulse Ox 98.6 F 93 H 28 H 136/48 L 79 L 09/20/17 16:00 09/20/17 15:30 09/20/17 15:30 09/20/17 15:05 09/20/17 15:30 Intake and Output: 09/20/17 09/20/17 06:59 18:59 Intake Total 897 Output Total 1000 Balance -103 - Medications Medications: Current Medications Acetaminophen (Tylenol 325mg Tab) 650 mg PO Q6H PRN PRN Reason: Pain, Mild (1-3) Last Admin: 09/18/17 23:52 Dose: 650 mg Acetaminophen (Tylenol 325mg Tab) 650 mg PO Q4H PRN PRN Reason: Pain, moderate (4-7) Albuterol/Ipratropium (Duoneb 3 Mg/0.5 Mg (3 Ml) Ud) 3 ml IH Q2H PRN PRN Reason: Shortness of Breath Last Admin: 09/20/17 08:47 Dose: 3 ml Artificial Tears (Artificial Tears) 0 ml OU Q1H PRN PRN Reason: Dry eyes Aspirin (Aspirin Chewable) 81 mg PO DAILY [facility] Last Admin: 09/19/17 09:54 Dose: 81 mg Budesonide (Pulmicort Respules) 0.5 mg IH [id number] [facility] Gabapentin (Neurontin) 300 mg PO TID [facility] PRN Reason: Protocol Last Admin: 09/19/17 09:54 Dose: 300 mg Heparin Sodium (Porcine) (Heparin) 5,000 units SC Q12 [facility] PRN Reason: Protocol Last Admin: 09/20/17 09:42 Dose: 5,000 units Ceftriaxone Sodium (Rocephin 1 Gram Ivpb) 1 gm in 100 mls @ 100 mls/hr IVPB DAILY [facility] PRN Reason: Protocol Last Admin: 09/20/17 09:43 Dose: 100 mls/hr Azithromycin (Zithromax 500mg In Ns) 500 mg in 250 mls @ 167 mls/hr IVPB DAILY [facility] PRN Reason: Protocol Last Admin: 09/20/17 09:51 Dose: 167 mls/hr Sodium Bicarbonate 50 meq/ (Sodium Chloride) 1,050 mls @ 80 mls/hr IV .Q13H8M [facility] Last Admin: 09/20/17 10:24 Dose: 80 mls/hr NOREPINEPHRINE BIT/0.9 % NACL (Levophed 4 Mg/ 250 Ml Ns Premixed) 4 mg in 250 mls @ 15 mls/hr IV .[id number] PRN; Protocol; 4 MCG/MIN PRN Reason: TITRATE PER MD ORDER Last Titration: 09/20/17 02:45 Dose: 7 mcg/min, 26.25 mls/hr Insulin Human Regular (Humulin R Low) 0 units SC ACHS [facility] PRN Reason: Protocol Last Admin: 09/20/17 12:00 Dose: 1 units Methadone HCl (Methadone) 100 mg PO DAILY [facility] Last Admin: 09/19/17 10:52 Dose: Not Given Methylprednisolone (Solu-Medrol) 40 mg IVP Q12 [facility] Last Admin: 09/20/17 11:00 Dose: 40 mg Pantoprazole Sodium (Protonix Ec Tab) 40 mg PO ACB [facility] Last Admin: 09/20/17 09:41 Dose: 40 mg - Labs Labs: 09/20/17 08:40 09/20/17 08:40 PT 12.4 SECONDS (9.4-12.5) 09/18/17 19:00 INR 1.09 (0.93-1.08) H 09/18/17 19:00 APTT 26.7 Seconds (25.1-36.5) 09/18/17 19:00 - Constitutional Appears: Non-toxic - Head Exam Head Exam: ATRAUMATIC, NORMOCEPHALIC - Eye Exam Eye Exam: EOMI, Normal appearance - ENT Exam ENT Exam: Mucous Membranes Moist - Neck Exam Neck Exam: Normal Inspection - Respiratory Exam Respiratory Exam: Decreased Breath Sounds (bilaterally). absent: Accessory Muscle Use Additional comments: tachypneic - Cardiovascular Exam Cardiovascular Exam: RRR, +S1, +S2 - GI/Abdominal Exam GI & Abdominal Exam: Soft, Normal Bowel Sounds - Extremities Exam Additional comments: non-pitting edema - Neurological Exam Neurological Exam: Alert, Awake, CN II-XII Intact - Psychiatric Exam Psychiatric exam: Normal Affect, Normal Mood - Skin Skin Exam: Dry, Intact, Normal Color, Warm Assessment and Plan - Assessment and Plan (Free Text) Assessment: 57 year old female with a past medical history of HIV, COPD, OHS, who was presented with muscle spasms, weakness, and was found to have Acute Kidney Injury, Hyperkalemic respiratory acidosis with metabolic component, and possible pneumonia. Patient got trialysis catheter in the groin for urgent HD. Patient's clinic will need ot Plan: 1) Respiratory acidosis with concomitant metabolic acidosis and hyperkalemia and hypotension and fluid overload state - Bicarbonate drip - Levophed drip (adjust per ICU team) - Dialysis performed, K below 5 - Consider Lasix 2) Acute Kidney Injury - Dialysis - Avoid nephrotoxins - Nephrology following - urine output improved 3) DM II - Insulin regular sliding scale 4) Possible Infection, pneumonia - Ceftriaxone - Azithromycin 5) HIV - ID following, appreciate recommendations - CD4 and HIV viral load pending - HAART: patient was on Truvade and Reyatz 6) COPD with obesity hypoventilation syndrome - IV solumedrol and Budesonide - BIPAP - Continue to monitor via serial ABGs and chest X-rays - Pulmonology/Critical Care following - Avoid narcotics 7) DVT/GI prophylaxis - Heparin - Protonix Case reviewed with Dr. Rasheed <Dagoberto Rasheed - Last Filed: 09/21/17 14:04> Objective - Vital Signs/Intake and Output Vital Signs (last 24 hours): Temp Pulse Resp BP Pulse Ox 98.8 F 78 27 H 164/88 H 99 09/21/17 04:00 09/21/17 13:50 09/21/17 13:16 09/21/17 13:16 09/21/17 06:00 Intake and Output: 09/21/17 09/21/17 06:59 18:59 Intake Total 2311 Output Total 1675 Balance 636 - Medications Medications: Current Medications Acetaminophen (Tylenol 325mg Tab) 650 mg PO Q6H PRN PRN Reason: Pain, Mild (1-3) Last Admin: 09/21/17 10:31 Dose: 650 mg Acetaminophen (Tylenol 325mg Tab) 650 mg PO Q4H PRN PRN Reason: Pain, moderate (4-7) Albuterol/Ipratropium (Duoneb 3 Mg/0.5 Mg (3 Ml) Ud) 3 ml IH Q2H PRN PRN Reason: Shortness of Breath Last Admin: 09/21/17 07:22 Dose: 3 ml Artificial Tears (Artificial Tears) 0 ml OU Q1H PRN PRN Reason: Dry eyes Aspirin (Aspirin Chewable) 81 mg PO DAILY [facility] Last Admin: 09/19/17 09:54 Dose: 81 mg Budesonide (Pulmicort Respules) 0.5 mg IH [id number] [facility] Last Admin: 09/21/17 07:28 Dose: 0.5 mg Gabapentin (Neurontin) 100 mg PO BID [facility] PRN Reason: Protocol Last Admin: 09/21/17 09:47 Dose: 100 mg Heparin Sodium (Porcine) (Heparin) 5,000 units SC Q12 [facility] PRN Reason: Protocol Last Admin: 09/21/17 09:49 Dose: 5,000 units Ceftriaxone Sodium (Rocephin 1 Gram Ivpb) 1 gm in 100 mls @ 100 mls/hr IVPB DAILY [facility] PRN Reason: Protocol Last Admin: 09/21/17 09:47 Dose: 100 mls/hr Azithromycin (Zithromax 500mg In Ns) 500 mg in 250 mls @ 167 mls/hr IVPB DAILY [facility] PRN Reason: Protocol Last Admin: 09/21/17 09:46 Dose: 167 mls/hr Sodium Bicarbonate 50 meq/ (Sodium Chloride) 1,050 mls @ 80 mls/hr IV .Q13H8M [facility] Last Admin: 09/20/17 21:30 Dose: 80 mls/hr Insulin Human Regular (Humulin R Low) 0 units SC ACHS [facility] PRN Reason: Protocol Last Admin: 09/21/17 12:43 Dose: 1 units Methylprednisolone (Solu-Medrol) 40 mg IVP Q12 [facility] Last Admin: 09/21/17 09:49 Dose: 40 mg Pantoprazole Sodium (Protonix Ec Tab) 40 mg PO ACB [facility] Last Admin: 09/21/17 08:24 Dose: 40 mg Valsartan (Diovan) 320 mg PO DAILY [facility] - Labs Labs: 09/21/17 05:30 09/21/17 13:10 PT 12.4 SECONDS (9.4-12.5) 09/18/17 19:00 INR 1.09 (0.93-1.08) H 09/18/17 19:00 APTT 26.7 Seconds (25.1-36.5) 09/18/17 19:00 Attending/Attestation - Attestation I have personally seen and examined this patient.: Yes I have fully participated in the care of the patient.: Yes I have reviewed all pertinent clinical information, including history, physical exam and plan: Yes Notes (Text): 09/21/17 13:59 57 year old female with PMH of HIV, COPD, Sleep apnea, on Methadone , who was presented with muscle spasms, weakness, and was found to have Acute renal failure, creatinine >8, Hyperkalemia and respiratory acidosis due to likely Obesity Hypoventilation syndrome, and possible pneumonia. Patient renal failure is improving.She is scheduled for Hemodialysis today. Hyperkalemia is also improving.We will monitor BUN/Creatinin and electrolyte. Patient is not wheezing, steroid dose can be reduced.Blood cultures are negative for any growth. Management plan was discussed in detail with patient as well as with patient son and daughter over the phone. Education was provided.
--- NOTE | 2017-09-20 19:46 | CP.PCM.PN ---
Subjective - Date & Time of Evaluation Date of Evaluation: 09/20/17 Time of Evaluation: 19:00 - Subjective Subjective: Infectious Disease Follow Up: September 20, 2017 57 yo female with PMH of DM, HTN, OA of b/l knees, HIV, COPD, and osteoporosis presents to [facility] due to a 1 week history of weakness, cold like symptoms, and b/ l LE pain. Pt complains of cough that is productive with green sputum, shortness of breath, and sinus congestion. She states that she receives her HIV medication scripts from the [facility]. Found to have respiratory acidosis and metabolic alkalosis on ABG. Shiley cath placed for HD. Transferred to MICU for further care. Mild leukocytosis noted. Patient remains just overly concerned about eating over anything else. Objective - Vital Signs/Intake and Output Vital Signs (last 24 hours): Temp Pulse Resp BP Pulse Ox 98.6 F 93 H 37 H 142/58 L 92 L 09/20/17 16:00 09/20/17 17:32 09/20/17 17:10 09/20/17 17:01 09/20/17 17:30 Intake and Output: 09/20/17 09/21/17 18:59 06:59 Intake Total 2470 Output Total 2200 Balance 270 - Medications Medications: Current Medications Acetaminophen (Tylenol 325mg Tab) 650 mg PO Q6H PRN PRN Reason: Pain, Mild (1-3) Last Admin: 09/18/17 23:52 Dose: 650 mg Acetaminophen (Tylenol 325mg Tab) 650 mg PO Q4H PRN PRN Reason: Pain, moderate (4-7) Albuterol/Ipratropium (Duoneb 3 Mg/0.5 Mg (3 Ml) Ud) 3 ml IH Q2H PRN PRN Reason: Shortness of Breath Last Admin: 09/20/17 08:47 Dose: 3 ml Artificial Tears (Artificial Tears) 0 ml OU Q1H PRN PRN Reason: Dry eyes Aspirin (Aspirin Chewable) 81 mg PO DAILY [facility] Last Admin: 09/19/17 09:54 Dose: 81 mg Budesonide (Pulmicort Respules) 0.5 mg IH [id number] [facility] Gabapentin (Neurontin) 300 mg PO TID [facility] PRN Reason: Protocol Last Admin: 09/19/17 09:54 Dose: 300 mg Heparin Sodium (Porcine) (Heparin) 5,000 units SC Q12 [facility] PRN Reason: Protocol Last Admin: 09/20/17 09:42 Dose: 5,000 units Ceftriaxone Sodium (Rocephin 1 Gram Ivpb) 1 gm in 100 mls @ 100 mls/hr IVPB DAILY [facility] PRN Reason: Protocol Last Admin: 09/20/17 09:43 Dose: 100 mls/hr Azithromycin (Zithromax 500mg In Ns) 500 mg in 250 mls @ 167 mls/hr IVPB DAILY [facility] PRN Reason: Protocol Last Admin: 09/20/17 09:51 Dose: 167 mls/hr Sodium Bicarbonate 50 meq/ (Sodium Chloride) 1,050 mls @ 80 mls/hr IV .Q13H8M [facility] Last Admin: 09/20/17 10:24 Dose: 80 mls/hr NOREPINEPHRINE BIT/0.9 % NACL (Levophed 4 Mg/ 250 Ml Ns Premixed) 4 mg in 250 mls @ 15 mls/hr IV .[id number] PRN; Protocol; 4 MCG/MIN PRN Reason: TITRATE PER MD ORDER Last Titration: 09/20/17 02:45 Dose: 7 mcg/min, 26.25 mls/hr Insulin Human Regular (Humulin R Low) 0 units SC ACHS [facility] PRN Reason: Protocol Last Admin: 09/20/17 16:41 Dose: 1 units Methadone HCl (Methadone) 100 mg PO DAILY [facility] Last Admin: 09/19/17 10:52 Dose: Not Given Methylprednisolone (Solu-Medrol) 40 mg IVP Q12 [facility] Last Admin: 09/20/17 11:00 Dose: 40 mg Pantoprazole Sodium (Protonix Ec Tab) 40 mg PO ACB [facility] Last Admin: 09/20/17 09:41 Dose: 40 mg - Labs Labs: 09/20/17 08:40 09/20/17 08:40 PT 12.4 SECONDS (9.4-12.5) 09/18/17 19:00 INR 1.09 (0.93-1.08) H 09/18/17 19:00 APTT 26.7 Seconds (25.1-36.5) 09/18/17 19:00 - Constitutional Appears: Non-toxic, In Acute Distress, Chronically Ill - Head Exam Head Exam: ATRAUMATIC, NORMOCEPHALIC - Eye Exam Eye Exam: EOMI, PERRL Pupil Exam: NORMAL ACCOMODATION, PERRL - ENT Exam ENT Exam: Mucous Membranes Moist, Normal External Ear Exam, TM's Normal Bilaterally - Neck Exam Neck Exam: Full ROM, Normal Inspection - Respiratory Exam Respiratory Exam: Decreased Breath Sounds, NORMAL BREATHING PATTERN. absent: Rales, Rhonchi, Wheezes - Cardiovascular Exam Cardiovascular Exam: REGULAR RHYTHM, RRR, +S1, +S2 - GI/Abdominal Exam GI & Abdominal Exam: Normal Bowel Sounds. absent: Distended, Tenderness - Extremities Exam Extremities Exam: Full ROM. absent: Joint Swelling, Pedal Edema - Neurological Exam Neurological Exam: Alert, Awake, CN II-XII Intact, Oriented x3 - Psychiatric Exam Psychiatric exam: Normal Affect, Normal Mood - Skin Skin Exam: Intact, Normal Color Assessment and Plan - Assessment and Plan (Free Text) Assessment: 57 yo female with multiple medical issues including HIV, knee pain, Morbid Obesity, Renal insufficiency, conjunctivitis presenting with cough and SOB for the past week. Possible pneumonia seen in Chest X-ray. Supportive care. Started on Azithromycin and Rocephin for initial antibiotic coverage. Need CD4 and HIV Viral load to be done. Her last CD4 was 862 and Undetectable viral load taken 1 year ago. The patient does not know her HAART regimen. Need confirmation from her clinic regarding medications. Awaiting CD4 and HIV viral load results. Supportive care. Thank you for allowing me to participate in the care of the patient, we will follow with you.
[2017-09-20] MEDS: Budesonide 0.5 mg/2 ml Inhal Susp UD IH SCH (21:47)
[2017-09-21 05:21] LABS: ARTERIAL BLOOD GAS HEMOGLOBIN 10.2 g/dL (11.7-17.4); ARTERIAL BLOOD GAS O2 CAPACITY 14.2 mL/dl (16-24); ARTERIAL BLOOD GAS O2 CONTENT 13.8 ML/dl (15-23); ARTERIAL BLOOD GAS O2 SAT 97.1 % (95-98); ARTERIAL BLOOD GAS PCO2 57 mm/Hg (35-45); ARTERIAL BLOOD GAS PH 7.37 (7.35-7.45); ARTERIAL BLOOD GAS TCO2 34.7 mmol.L (22-28)
[2017-09-21 05:49] LABS: % CD4 (T HELPER CELL) 23 Percent (30-61); % CD8 (SUPPRESSOR T CELL) 38 Percent (12-42); ABSOLUTE CD4 CELLS 305 Cells/mcL (490-1740); ABSOLUTE CD8 CELLS 502 Cells/mcL (180-1170); ABSOLUTE LYMPHOCYTES 1337 Cells/mcL (850-3900); HELPER/SUPPRESSOR RATIO 0.61 Ratio (0.86-5.00)
[2017-09-21 06:19] LABS: BASO # 0.01 K/mm3 (0.0-2.0); BASO % 0.1 % (0.0-3.0); GRAN # 6.27 (1.4-6.5); GRAN % 85.1 % (50.0-68.0); HEMOGLOBIN 9.8 g/dL (12.0-16.0); LYMPH # 0.8 (1.2-3.4); LYMPH % 10.3 % (22.0-35.0); MEAN CELL VOLUME 90.7 fl (80.0-105.0); MEAN CORPUSCULAR HEMOGLOBIN 27.7 pg (25.0-35.0); MEAN CORPUSCULAR HGB CONC 30.5 g/dl (31.0-37.0); MEAN PLATELET VOLUME 9.9 fl (7.0-11.0); MONO # 0.3 (0.1-0.6); MONO % 4.5 % (1.0-6.0); RBC 3.54 10^6/uL (3.5-6.1); RED CELL DISTRIBUTION WIDTH 15.6 % (11.5-14.5); WHITE BLOOD COUNT 7.4 10^3/ul (4.5-11.0)
[2017-09-21 06:52] LABS: ALB/GLOB RATIO 0.7 (1.1-1.8); ALBUMIN 3.3 g/dL (3.0-4.8); CALCIUM 8.8 mg/dL (8.4-10.5)
[2017-09-21] MEDS: Albuterol-Ipratrop 3 mg / 0.5 (3 ml) UD IH PRN ×2 (07:22→19:24)
[2017-09-21] MEDS: Budesonide 0.5 mg/2 ml Inhal Susp UD IH SCH ×2 (07:28→19:24)
[2017-09-21] MEDS ORDERED: Sod Polystyrene Sulf 15 gm/60 ml Susp PO ONE ×2 (07:45→13:52)
[2017-09-21] MEDS: Insulin Reg-LOW-Coverage SC SCH ×4 (08:11→22:26)
[2017-09-21] MEDS: Pantoprazole 40 mg EC Tab PO SCH (08:24)
[2017-09-21] MEDS ORDERED: Albuterol 0.5% Inhal Sol (5 mg/ ml) 20 ml IH STA (08:44)
[2017-09-21] MEDS: Azithromycin 500MG/NS 250ml 500 MG/250 ML BAG IVPB SCH (09:46)
[2017-09-21] MEDS: cefTRIAXone 1 gm 1 GM/100 ML BAG IVPB SCH (09:47)
[2017-09-21] MEDS: MethylPREDNISolone 40 mg Vial IVP SCH (09:49)
--- NOTE | 2017-09-21 11:57 | CP.PCM.PN ---
<Victor Hugo Herrera - Last Filed: 09/21/17 14:11> Subjective - Date & Time of Evaluation Date of Evaluation: 09/21/17 Time of Evaluation: 08:25 - Subjective Subjective: Victor Hugo Herrera DO, PGY-1: Hospitalist Service Patient seen and examined at bedside. She c/o of right leg numbness, like her leg is asleep. Patient denies any nausea, vomiting, chest pain, or muscle jerks. Nurse reports no events overnight. Objective - Vital Signs/Intake and Output Vital Signs (last 24 hours): Temp Pulse Resp BP Pulse Ox 98.8 F 63 16 129/75 99 09/21/17 04:00 09/21/17 06:00 09/21/17 06:00 09/21/17 06:00 09/21/17 06:00 Intake and Output: 09/21/17 09/21/17 06:59 18:59 Intake Total 2311 Output Total 1675 Balance 636 - Medications Medications: Current Medications Acetaminophen (Tylenol 325mg Tab) 650 mg PO Q6H PRN PRN Reason: Pain, Mild (1-3) Last Admin: 09/21/17 10:31 Dose: 650 mg Acetaminophen (Tylenol 325mg Tab) 650 mg PO Q4H PRN PRN Reason: Pain, moderate (4-7) Albuterol/Ipratropium (Duoneb 3 Mg/0.5 Mg (3 Ml) Ud) 3 ml IH Q2H PRN PRN Reason: Shortness of Breath Last Admin: 09/21/17 07:22 Dose: 3 ml Artificial Tears (Artificial Tears) 0 ml OU Q1H PRN PRN Reason: Dry eyes Aspirin (Aspirin Chewable) 81 mg PO DAILY [facility] Last Admin: 09/19/17 09:54 Dose: 81 mg Budesonide (Pulmicort Respules) 0.5 mg IH [id number] [facility] Last Admin: 09/21/17 07:28 Dose: 0.5 mg Gabapentin (Neurontin) 100 mg PO BID [facility] PRN Reason: Protocol Last Admin: 09/21/17 09:47 Dose: 100 mg Heparin Sodium (Porcine) (Heparin) 5,000 units SC Q12 [facility] PRN Reason: Protocol Last Admin: 09/21/17 09:49 Dose: 5,000 units Ceftriaxone Sodium (Rocephin 1 Gram Ivpb) 1 gm in 100 mls @ 100 mls/hr IVPB DAILY [facility] PRN Reason: Protocol Last Admin: 09/21/17 09:47 Dose: 100 mls/hr Azithromycin (Zithromax 500mg In Ns) 500 mg in 250 mls @ 167 mls/hr IVPB DAILY [facility] PRN Reason: Protocol Last Admin: 09/21/17 09:46 Dose: 167 mls/hr Sodium Bicarbonate 50 meq/ (Sodium Chloride) 1,050 mls @ 80 mls/hr IV .Q13H8M [facility] Last Admin: 09/20/17 21:30 Dose: 80 mls/hr NOREPINEPHRINE BIT/0.9 % NACL (Levophed 4 Mg/ 250 Ml Ns Premixed) 4 mg in 250 mls @ 15 mls/hr IV .[id number] PRN; Protocol; 4 MCG/MIN PRN Reason: TITRATE PER MD ORDER Last Titration: 09/20/17 22:00 Dose: 0 mcg/min, 0 mls/hr Insulin Human Regular (Humulin R Low) 0 units SC ACHS [facility] PRN Reason: Protocol Last Admin: 09/21/17 08:11 Dose: Not Given Methadone HCl (Methadone) 20 mg PO DAILY [facility] Methylprednisolone (Solu-Medrol) 40 mg IVP Q12 [facility] Last Admin: 09/21/17 09:49 Dose: 40 mg Pantoprazole Sodium (Protonix Ec Tab) 40 mg PO ACB [facility] Last Admin: 09/21/17 08:24 Dose: 40 mg - Labs Labs: 09/21/17 05:30 09/21/17 05:30 PT 12.4 SECONDS (9.4-12.5) 09/18/17 19:00 INR 1.09 (0.93-1.08) H 09/18/17 19:00 APTT 26.7 Seconds (25.1-36.5) 09/18/17 19:00 - Constitutional Appears: Non-toxic, No Acute Distress - Head Exam Head Exam: ATRAUMATIC, NORMOCEPHALIC - Eye Exam Eye Exam: EOMI, Normal appearance - ENT Exam ENT Exam: Mucous Membranes Moist, Normal Oropharynx - Neck Exam Neck Exam: Normal Inspection - Respiratory Exam Respiratory Exam: Clear to Ausculation Bilateral, NORMAL BREATHING PATTERN. absent: Accessory Muscle Use - Cardiovascular Exam Cardiovascular Exam: RRR, +S1, +S2 - GI/Abdominal Exam GI & Abdominal Exam: Soft, Normal Bowel Sounds. absent: Guarding - Extremities Exam Extremities Exam: Normal Inspection. absent: Calf Tenderness - Neurological Exam Neurological Exam: Alert, Awake, Oriented x3 - Psychiatric Exam Psychiatric exam: Normal Affect, Normal Mood - Skin Skin Exam: Dry, Intact, Normal Color, Warm Assessment and Plan - Assessment and Plan (Free Text) Assessment: 57 year old female with a past medical history of HIV, COPD, OHS, who was presented with muscle spasms, weakness, and was found to have Acute Kidney Injury, Hyperkalemia, respiratory acidosis with metabolic component, and possible pneumonia. Patient got trialysis catheter in the groin for urgent HD and levophed for hypotension. Pateint's hypercapnia and acidosis was treated with BIPAP/CPAP, bicarbonate drip, and HD. COPD and pneumonia being treated with IV ceftriaxone, azithromycin, budesonide. Patient's hyperkalemia is being treated with intermittent Kayexelate and albuterol. Patient DM II is being managed with regular insulin ISS . Patient Methadone has been resumed and will administer as 20% day 1, 50% day 2, and 100% by day 3, unless patient decompensates into respiratory distress. Patient underwent one session of HD with significant improvement in GFR and is maintaining good urine output. Patient's CD4 count is 305 and most recent Cr was 1.0. Infectious disease is following. Patient was taking Truvada and Reyatz as an outpatient. Patient is As of 09/21/17, patient has been transferred out of ICU to telemetry for further observation. Patient is on Renal diet. Continue to follow ID, Nephrology consultations. Plan: 1) Respiratory acidosis with concomitant metabolic acidosis and hyperkalemia - Bicarbonate drip - Levophed drip discontinued - CPAP/BIPAP - Kayexelate and Albuterol PRN with BMP q4-8h 2) Acute Kidney Injury - Cr 1.0 - All drugs to be renally dosed - Avoid nephrotoxins - Nephrology following - urine output improved 3) DM II with neuropathy - Insulin regular sliding scale - Gabapentin 100 mg BID 4) Possible Infection, pneumonia - Ceftriaxone - Azithromycin 5) HIV - ID following, appreciate recommendations - CD4 count 305, - HAART: patient was on Truvada and Reyatz 6) COPD with obesity hypoventilation syndrome - IV solumedrol and Budesonide - BIPAP/CPAP - Pulmonology/Critical Care following Opiod dependency - Methadone 20 mg 09/21, increase dose daily and monitor respiratory status carefully 7) DVT/GI prophylaxis - Heparin 5,000 U q12h - Protonix Case reviewed with Dr. Rasheed <Dagoberto Rasheed - Last Filed: 09/21/17 16:06> Objective - Vital Signs/Intake and Output Vital Signs (last 24 hours): Temp Pulse Resp BP Pulse Ox 98.1 F 74 18 120/70 99 09/21/17 14:02 09/21/17 14:02 09/21/17 14:02 09/21/17 14:02 09/21/17 06:00 Intake and Output: 09/21/17 09/21/17 06:59 18:59 Intake Total 2311 Output Total 1675 Balance 636 - Medications Medications: Current Medications Acetaminophen (Tylenol 325mg Tab) 650 mg PO Q6H PRN PRN Reason: Pain, Mild (1-3) Last Admin: 09/21/17 10:31 Dose: 650 mg Acetaminophen (Tylenol 325mg Tab) 650 mg PO Q4H PRN PRN Reason: Pain, moderate (4-7) Albuterol/Ipratropium (Duoneb 3 Mg/0.5 Mg (3 Ml) Ud) 3 ml IH Q2H PRN PRN Reason: Shortness of Breath Last Admin: 09/21/17 07:22 Dose: 3 ml Artificial Tears (Artificial Tears) 0 ml OU Q1H PRN PRN Reason: Dry eyes Aspirin (Aspirin Chewable) 81 mg PO DAILY [facility] Last Admin: 09/19/17 09:54 Dose: 81 mg Budesonide (Pulmicort Respules) 0.5 mg IH [id number] [facility] Last Admin: 09/21/17 07:28 Dose: 0.5 mg Gabapentin (Neurontin) 100 mg PO BID [facility] PRN Reason: Protocol Last Admin: 09/21/17 09:47 Dose: 100 mg Heparin Sodium (Porcine) (Heparin) 5,000 units SC Q12 [facility] PRN Reason: Protocol Last Admin: 09/21/17 09:49 Dose: 5,000 units Ceftriaxone Sodium (Rocephin 1 Gram Ivpb) 1 gm in 100 mls @ 100 mls/hr IVPB DAILY [facility] PRN Reason: Protocol Last Admin: 09/21/17 09:47 Dose: 100 mls/hr Azithromycin (Zithromax 500mg In Ns) 500 mg in 250 mls @ 167 mls/hr IVPB DAILY [facility] PRN Reason: Protocol Last Admin: 09/21/17 09:46 Dose: 167 mls/hr Sodium Bicarbonate 50 meq/ (Sodium Chloride) 1,050 mls @ 80 mls/hr IV .Q13H8M [facility] Last Admin: 09/20/17 21:30 Dose: 80 mls/hr Insulin Human Regular (Humulin R Low) 0 units SC ACHS [facility] PRN Reason: Protocol Last Admin: 09/21/17 12:43 Dose: 1 units Methylprednisolone (Solu-Medrol) 40 mg IVP Q12 [facility] Last Admin: 09/21/17 09:49 Dose: 40 mg Pantoprazole Sodium (Protonix Ec Tab) 40 mg PO ACB [facility] Last Admin: 09/21/17 08:24 Dose: 40 mg - Labs Labs: 09/21/17 05:30 09/21/17 13:10 PT 12.4 SECONDS (9.4-12.5) 09/18/17 19:00 INR 1.09 (0.93-1.08) H 09/18/17 19:00 APTT 26.7 Seconds (25.1-36.5) 09/18/17 19:00 Attending/Attestation - Attestation I have personally seen and examined this patient.: Yes I have fully participated in the care of the patient.: Yes I have reviewed all pertinent clinical information, including history, physical exam and plan: Yes Notes (Text): 09/21/17 16:01 Medical record note made by the resident after discussion with my direction and input after the patient was personally seen and examined by me. I have reviewed the chart and agree that the record accurately reflects by personal performance of the history, physical exam, data review, and medical decision-making, in the course for the patient. I have also personally directed the plan of care. 57 year old female with PMH of HIV, COPD, Sleep apnea, on Methadone , who was presented with muscle spasms, weakness, and was found to have Acute renal failure, creatinine >8, Hyperkalemia and respiratory acidosis due to likely Obesity Hypoventilation syndrome, and possible pneumonia. Patient is SP HD dialysis yesterday, patient is now having good urine out put..Creatinin has come down to 1.3 Resp acidosis is improved, continue .BIPAP at night time.Patient is not wheezing , we will decrease dos of methylprednisolon
[2017-09-21 13:44] LABS: BLOOD UREA NITROGEN 38 mg/dL (7-21); GFR AFRICAN-AMERICAN > 60; GFR NON-AFRICAN AMERICAN 57
--- NOTE | 2017-09-21 15:00 | PN ---
DATE: SUBJECTIVE: The patient is seen in the ICU. She is awake. She is alert. She is sitting up. She is trying to eat her lunch. She denies any cough. She denies any shortness of breath. She complains of pain in her legs. She denies any nausea, vomiting or diarrhea. PHYSICAL EXAMINATION GENERAL: Obese, middle-aged lady sitting in bed in the ICU. VITAL SIGNS: Blood pressure 153/97, heart rate 74, respiratory rate 18, temperature 98.1. HEENT: Normocephalic, atraumatic. Positive pallor. NECK: Supple. No JVD. LUNGS: Bilateral equal entry, bilateral equal expansion, no rales. CARDIAC: S1, S2. Regular rate and rhythm. No murmur, no rub. ABDOMEN: Obese, distended, soft, nontender. Bowel sounds present. EXTREMITIES: Trace lower extremity edema. INTAKE AND OUTPUT: 4780/3875 LABORATORY DATA: WBC 7.4, hemoglobin 9.8, hematocrit 32, platelets 152. Sodium 146, potassium 5.1, chloride 107, CO2 31, BUN 38, creatinine 1, glucose 201, calcium 9. CD-4 count 305. Urine toxicology positive for methadone. Cultures, no growth so far. CURRENT MEDICATIONS: Aspirin 81, DuoNeb, heparin 5000 subcutaneous every 12 hours, insulin, gabapentin 100 b.i.d., Protonix, Pulmicort, ceftriaxone, half-normal saline with 1 ampule of bicarbonate 80, Solu-Medrol 40 every 12 hours, Tylenol, Zithromax. ASSESSMENT 1. Acute kidney injury, combination of prerenal azotemia plus acute tubular necrosis, resolving. 2. Hyperkalemia. 3. Morbid obesity. 4. Aws-flkujya-cxjssgicj diabetes mellitus. 5. Hypertension, resolved - hypotension. 6. Human immunodeficiency syndrome. 7. History of heroin snorting, now on methadone 8. Anemia. 9.. Respiratory acidosis plus metabolic acidosis, resolving. PLAN 1. The patient received dialysis yesterday. The patient has excellent urine output. Renal function has improved. No indication for further dialysis. 2. Mild hyperkalemia, continue to monitor. 3. Avoid further Kayexalate. 4. Monitor fingersticks. 5. Monitor urine output. Monitor for diuretics phase of ATN. 6. Monitor electrolytes closely. 7. Okay to restart losartan tomorrow. 8. Okay to restart metformin. 9. Okay to restart antiretrovirals. 10. Discontinue femoral catheter. 11. Case discussed with ICU staff at length. 12. Case discussed with primary attending. More than 35 minutes spent in the care of this critically ill patient Suellen Polk MD
--- NOTE | 2017-09-21 15:39 | PN ---
DATE: 09/21/2017 SAFETY SUPERVISOR NOTE SUBJECTIVE: The patient is resting in bed, awake and alert, on nasal cannula. No complaints of increased shortness of breath, cough, wheezing, chest congestion. No chest pain. No abdominal pain. No diarrhea. The patient is eating this morning with no respiratory difficulty. She did tolerate her BiPAP during the night and stated she slept well. The patient continues to be on bicarb drip, but does not require Levophed for blood pressure support anymore that has been discontinued. PHYSICAL EXAMINATION VITAL SIGNS: Note that her temperature is 98.8, pulse is 63, respirations are 16 and BP is 129/75. SKIN: Warm and dry. HEENT: Head is atraumatic, normocephalic. Eyes reactive to light. Ears, nose and throat seemed to be within normal limits. NECK: Supple. No JVD, no thyroid enlargement, no lymph nodes. HEART: Has regular rate and rhythm. Normal S1, S2. LUNGS: Reveal decreased breath sounds at the bases. ABDOMEN: Soft, nontender, but obese. GENITALIA AND RECTAL: Deferred. MUSCULOSKELETAL: No joint deformities. EXTREMITIES: Reveal positive lower extremity edema. NEUROLOGIC: She seemed to be grossly intact. LABORATORY DATA: As far as her laboratories are concerned, her white count is 7.4, hemoglobin is 9.8, hematocrit 32.1 with platelets of 152,000. Her arterial blood gas reveals a pH of 7.37, pCO2 of 57 and pO2 of 80. Her sodium is 143, potassium 5.6, chloride 107, CO2 of 34 with a BUN of 39, creatinine of 1.3 and a glucose of 157. Chest x-ray reveals cardiomegaly and mild vascular congestion. IMPRESSION: This patient has hypercapnic respiratory failure, most likely secondary to obesity hypoventilation syndrome and obstructive sleep apnea. She has severe chronic obstructive pulmonary disease and acute renal failure with history of human immunodeficiency virus, diabetes, hypertension, arthritis and anemia. The patient has hyperkalemia and metabolic acidosis. PLAN: We will continue with BiPAP and O2 support at bedtime. We will give her O2 via nasal cannula during the day. The patient is getting aggressive pulmonary toilet. She is getting Rocephin and Zithromax as antibiotics. She continues to be on the bicarb drip and Renal will assess that. She is getting DuoNebs as well as bronchodilators and is on Solu-Medrol as well. The patient is being assessed for possible transfer to telemetry. Ari Ardon MD
--- NOTE | 2017-09-21 17:46 | CP.PCM.PN ---
Subjective - Date & Time of Evaluation Date of Evaluation: 09/21/17 Time of Evaluation: 15:00 - Subjective Subjective: Infectious Disease Follow Up: September 21, 2017 57 yo female with PMH of DM, HTN, OA of b/l knees, HIV, COPD, and osteoporosis presents to [facility] due to a 1 week history of weakness, cold like symptoms, and b/ l LE pain. Pt complains of cough that is productive with green sputum, shortness of breath, and sinus congestion. She states that she [facility]. Found to have respiratory acidosis and metabolic alkalosis on ABG. Shiley cath placed for HD. Transferred to MICU for further care. Mild leukocytosis noted. Patient remains just overly concerned about eating over anything else. She has been transferred back to the medical floor. Improvement to respiratory acidosis and metabolic alkalosis. Objective - Vital Signs/Intake and Output Vital Signs (last 24 hours): Temp Pulse Resp BP Pulse Ox 98.1 F 74 18 120/70 99 09/21/17 14:02 09/21/17 14:02 09/21/17 14:02 09/21/17 14:02 09/21/17 06:00 Intake and Output: 09/21/17 09/21/17 06:59 18:59 Intake Total 2311 Output Total 1675 Balance 636 - Medications Medications: Current Medications Acetaminophen (Tylenol 325mg Tab) 650 mg PO Q6H PRN PRN Reason: Pain, Mild (1-3) Last Admin: 09/21/17 10:31 Dose: 650 mg Acetaminophen (Tylenol 325mg Tab) 650 mg PO Q4H PRN PRN Reason: Pain, moderate (4-7) Albuterol/Ipratropium (Duoneb 3 Mg/0.5 Mg (3 Ml) Ud) 3 ml IH Q2H PRN PRN Reason: Shortness of Breath Last Admin: 09/21/17 07:22 Dose: 3 ml Artificial Tears (Artificial Tears) 0 ml OU Q1H PRN PRN Reason: Dry eyes Aspirin (Aspirin Chewable) 81 mg PO DAILY [facility] Last Admin: 09/19/17 09:54 Dose: 81 mg Budesonide (Pulmicort Respules) 0.5 mg IH [id number] [facility] Last Admin: 09/21/17 07:28 Dose: 0.5 mg Gabapentin (Neurontin) 100 mg PO BID [facility] PRN Reason: Protocol Last Admin: 09/21/17 09:47 Dose: 100 mg Heparin Sodium (Porcine) (Heparin) 5,000 units SC Q8 [facility] PRN Reason: Protocol Ceftriaxone Sodium (Rocephin 1 Gram Ivpb) 1 gm in 100 mls @ 100 mls/hr IVPB DAILY [facility] PRN Reason: Protocol Last Admin: 09/21/17 09:47 Dose: 100 mls/hr Azithromycin (Zithromax 500mg In Ns) 500 mg in 250 mls @ 167 mls/hr IVPB DAILY [facility] PRN Reason: Protocol Last Admin: 09/21/17 09:46 Dose: 167 mls/hr Sodium Bicarbonate 50 meq/ (Sodium Chloride) 1,050 mls @ 80 mls/hr IV .Q13H8M [facility] Last Admin: 09/21/17 16:00 Dose: 80 mls/hr Insulin Human Regular (Humulin R Low) 0 units SC ACHS [facility] PRN Reason: Protocol Last Admin: 09/21/17 12:43 Dose: 1 units Methylprednisolone (Solu-Medrol) 40 mg IVP DAILY [facility] Pantoprazole Sodium (Protonix Ec Tab) 40 mg PO ACB [facility] Last Admin: 09/21/17 08:24 Dose: 40 mg - Labs Labs: 09/21/17 05:30 09/21/17 13:10 PT 12.4 SECONDS (9.4-12.5) 09/18/17 19:00 INR 1.09 (0.93-1.08) H 09/18/17 19:00 APTT 26.7 Seconds (25.1-36.5) 09/18/17 19:00 - Constitutional Appears: Non-toxic, No Acute Distress, Chronically Ill - Head Exam Head Exam: ATRAUMATIC, NORMOCEPHALIC - Eye Exam Eye Exam: EOMI, PERRL Pupil Exam: NORMAL ACCOMODATION, PERRL - ENT Exam ENT Exam: Mucous Membranes Moist, Normal External Ear Exam, TM's Normal Bilaterally - Neck Exam Neck Exam: Full ROM, Normal Inspection - Respiratory Exam Respiratory Exam: Decreased Breath Sounds, NORMAL BREATHING PATTERN. absent: Rales, Rhonchi, Wheezes - Cardiovascular Exam Cardiovascular Exam: REGULAR RHYTHM, RRR, +S1, +S2 - GI/Abdominal Exam GI & Abdominal Exam: Soft, Normal Bowel Sounds. absent: Distended, Tenderness - Extremities Exam Extremities Exam: Full ROM, Normal Inspection - Neurological Exam Neurological Exam: Alert, Awake, CN II-XII Intact, Oriented x3 - Psychiatric Exam Psychiatric exam: Normal Affect, Normal Mood - Skin Skin Exam: Intact, Normal Color Assessment and Plan - Assessment and Plan (Free Text) Assessment: 57 yo female with multiple medical issues including HIV, knee pain, Morbid Obesity, Renal insufficiency, conjunctivitis presenting with cough and SOB for the past week. Possible pneumonia seen in Chest X-ray. Supportive care. Started on Azithromycin and Rocephin for initial antibiotic coverage. Need CD4 and HIV Viral load to be done. Her last CD4 was 862 and Undetectable viral load taken 1 year ago. The patient does not know her HAART regimen. Need confirmation from her clinic regarding medications. Awaiting CD4 and HIV viral load results. Supportive care. CD4 of 305. Thank you for allowing me to participate in the care of the patient, we will follow with you.
[2017-09-22 06:22] LABS: HEMOGLOBIN 9.6 g/dL (12.0-16.0); MEAN CORPUSCULAR HEMOGLOBIN 27.7 pg (25.0-35.0); MEAN CORPUSCULAR HGB CONC 30.5 g/dl (31.0-37.0); MEAN PLATELET VOLUME 9.4 fl (7.0-11.0); RBC 3.46 10^6/uL (3.5-6.1); RED CELL DISTRIBUTION WIDTH 15.7 % (11.5-14.5); WHITE BLOOD COUNT 8.5 10^3/ul (4.5-11.0)
[2017-09-22 07:22] LABS: ALB/GLOB RATIO 0.7 (1.1-1.8); ALBUMIN 3.1 g/dL (3.0-4.8); ALT/SGPT 40 U/L (7-56); AST/SGOT 74 U/L (14-36); BLOOD UREA NITROGEN 29 mg/dL (7-21); CALCIUM 8.9 mg/dL (8.4-10.5); GFR AFRICAN-AMERICAN > 60; GFR NON-AFRICAN AMERICAN > 60
[2017-09-22] MEDS: Insulin Reg-LOW-Coverage SC SCH ×4 (08:00→22:19)
--- NOTE | 2017-09-22 08:01 | CP.PCM.PN ---
<Angelita Villalta - Last Filed: 09/22/17 16:19> Subjective - Date & Time of Evaluation Date of Evaluation: 09/22/17 Time of Evaluation: 08:00 - Subjective Subjective: Internal Medicine Progress Note: Patient seen and examined at bedside. Per nursing no acute events overnight. Patient on the medical floors, complaining of left leg numbness and pain at the shiley catheter site. Offers no other complaints at this time. Denies headaches , dizziness, cp, palpitations, sob, abdominal pain, urinary symptoms Objective - Vital Signs/Intake and Output Vital Signs (last 24 hours): Temp Pulse Resp BP Pulse Ox 98.4 F 85 20 112/65 97 09/22/17 06:00 09/22/17 06:00 09/22/17 06:00 09/22/17 06:00 09/22/17 06:00 Intake and Output: 09/22/17 09/22/17 06:59 18:59 Intake Total 1260 Output Total 100 Balance 1160 - Medications Medications: Current Medications Acetaminophen (Tylenol 325mg Tab) 650 mg PO Q6H PRN PRN Reason: Pain, Mild (1-3) Last Admin: 09/21/17 10:31 Dose: 650 mg Acetaminophen (Tylenol 325mg Tab) 650 mg PO Q4H PRN PRN Reason: Pain, moderate (4-7) Albuterol/Ipratropium (Duoneb 3 Mg/0.5 Mg (3 Ml) Ud) 3 ml IH Q2H PRN PRN Reason: Shortness of Breath Last Admin: 09/21/17 19:24 Dose: 3 ml Artificial Tears (Artificial Tears) 0 ml OU Q1H PRN PRN Reason: Dry eyes Aspirin (Aspirin Chewable) 81 mg PO DAILY [facility] Last Admin: 09/19/17 09:54 Dose: 81 mg Budesonide (Pulmicort Respules) 0.5 mg IH [id number] [facility] Last Admin: 09/21/17 19:24 Dose: 0.5 mg Gabapentin (Neurontin) 100 mg PO BID [facility] PRN Reason: Protocol Last Admin: 09/21/17 17:42 Dose: 100 mg Heparin Sodium (Porcine) (Heparin) 5,000 units SC Q8 [facility] PRN Reason: Protocol Last Admin: 09/22/17 05:53 Dose: 5,000 units Ceftriaxone Sodium (Rocephin 1 Gram Ivpb) 1 gm in 100 mls @ 100 mls/hr IVPB DAILY [facility] PRN Reason: Protocol Last Admin: 09/21/17 09:47 Dose: 100 mls/hr Azithromycin (Zithromax 500mg In Ns) 500 mg in 250 mls @ 167 mls/hr IVPB DAILY [facility] PRN Reason: Protocol Last Admin: 09/21/17 09:46 Dose: 167 mls/hr Sodium Bicarbonate 50 meq/ (Sodium Chloride) 1,050 mls @ 80 mls/hr IV .Q13H8M [facility] Last Admin: 09/22/17 04:13 Dose: Not Given Insulin Human Regular (Humulin R Low) 0 units SC ACHS [facility] PRN Reason: Protocol Last Admin: 09/21/17 22:26 Dose: Not Given Methylprednisolone (Solu-Medrol) 40 mg IVP DAILY [facility] Pantoprazole Sodium (Protonix Ec Tab) 40 mg PO ACB [facility] Last Admin: 09/21/17 08:24 Dose: 40 mg - Labs Labs: 09/22/17 06:00 09/22/17 06:00 PT 12.4 SECONDS (9.4-12.5) 09/18/17 19:00 INR 1.09 (0.93-1.08) H 09/18/17 19:00 APTT 26.7 Seconds (25.1-36.5) 09/18/17 19:00 - Additional Findings Additional findings: - Constitutional Appears: Non-toxic, No Acute Distress - Head Exam Head Exam: ATRAUMATIC, NORMOCEPHALIC - Eye Exam Eye Exam: EOMI, Normal appearance - ENT Exam ENT Exam: Mucous Membranes Moist, Normal Oropharynx - Neck Exam Neck Exam: Normal Inspection - Respiratory Exam Respiratory Exam: Clear to Ausculation Bilateral, NORMAL BREATHING PATTERN. absent: Accessory Muscle Use - Cardiovascular Exam Cardiovascular Exam: RRR, +S1, +S2 - GI/Abdominal Exam GI & Abdominal Exam: Soft, Normal Bowel Sounds. absent: Guarding - Extremities Exam Extremities Exam: Normal Inspection. +HD catheter in right groin absent: Calf Tenderness - Neurological Exam Neurological Exam: Alert, Awake, Oriented x3 - Psychiatric Exam Psychiatric exam: Normal Affect, Normal Mood - Skin Skin Exam: Dry, Intact, Normal Color, Warm Assessment and Plan - Assessment and Plan (Free Text) Assessment: 57 year old female with a past medical history of HIV, COPD, OHS, who was presented with muscle spasms, weakness, and was found to have Acute Kidney Injury, Hyperkalemia, respiratory acidosis with metabolic component, and possible pneumonia. Patient got trialysis catheter in the groin for urgent HD and levophed for hypotension. Pateint's hypercapnia and acidosis was treated with BIPAP/CPAP, bicarbonate drip, and HD. COPD and pneumonia being treated with IV ceftriaxone, azithromycin, budesonide. Patient's hyperkalemia is being treated with intermittent Kayexelate and albuterol. Patient DM II is being managed with regular insulin ISS . Patient Methadone has been resumed and will administer as 20% day 1, 50% day 2, and 100% by day 3, unless patient decompensates into respiratory distress. Patient underwent one session of HD with significant improvement in GFR and is maintaining good urine output. Patient's CD4 count is 305 and most recent Cr was 1.0. Infectious disease is following. Patient was taking Truvada and Reyatz as an outpatient. Patient is As of 09/21/17, patient has been transferred out of ICU to telemetry for further observation. Patient is on Renal diet. Continue to follow ID, Nephrology consultations. Plan: 1) Respiratory acidosis with concomitant metabolic acidosis and hyperkalemia - Bicarbonate drip discontinued - Levophed drip discontinued - Continue CPAP/BIPAP prn - Supplemental O2 as needed - Duonebs q2H prn - PT recommending DELFIN for disposition 2) Acute Kidney Injury (resolved) - BUN/Cr 29/0.8 - Per Nephro, patient no longer needs hemodialysis - HD catheter can be removed - F/U renal US - Avoid nephrotoxins - Nephrology following, f/u recommendations 3) DM II with neuropathy - Insulin regular sliding scale - Increased Gabapentin 200 mg BID - Accuchecks ACHS 4) Possible Infection, pneumonia - Antibiotics: Ceftriaxone 1gm daily, Azithromycin 500mg PO daily 5) HIV - ID following, appreciate recommendations - CD4 count 305 - HAART: patient was on Truvada and Reyatz - Will restart HIV medications 6) COPD with obesity hypoventilation syndrome - IV solumedrol and Budesonide - Will start PO prednisone tomorrow - BIPAP/CPAP as needed - Pulmonology/Critical Care following 7) Opiod dependency - Increased Methadone 50mg PO today - Tomorrow will start home dose Methadone DVT/GI prophylaxis - Heparin 5,000 U q12h - Protonix 40mg PO daily Plan discussed with Dr Cota <Vinicio Cota - Last Filed: 09/22/17 16:29> Objective - Vital Signs/Intake and Output Vital Signs (last 24 hours): Temp Pulse Resp BP Pulse Ox 98.4 F 85 20 112/65 97 09/22/17 06:00 09/22/17 06:00 09/22/17 06:00 09/22/17 06:00 09/22/17 06:00 Intake and Output: 09/22/17 09/22/17 06:59 18:59 Intake Total 1260 660 Output Total 100 Balance 1160 660 - Medications Medications: Current Medications Acetaminophen (Tylenol 325mg Tab) 650 mg PO Q6H PRN PRN Reason: Pain, Mild (1-3) Last Admin: 09/21/17 10:31 Dose: 650 mg Albuterol/Ipratropium (Duoneb 3 Mg/0.5 Mg (3 Ml) Ud) 3 ml IH Q4H PRN PRN Reason: Shortness of Breath Artificial Tears (Artificial Tears) 0 ml OU Q1H PRN PRN Reason: Dry eyes Aspirin (Aspirin Chewable) 81 mg PO DAILY [facility] Last Admin: 09/19/17 09:54 Dose: 81 mg Atazanavir (Reyataz) 300 mg PO DAILY [facility] Azithromycin (Zithromax) 500 mg PO DAILY [facility] Budesonide (Pulmicort Respules) 0.5 mg IH [id number] [facility] Last Admin: 09/22/17 08:06 Dose: Not Given Emtricitabine/Tenofovir (Truvada 200 Mg-300 Mg) 0 tab PO DAILY [facility] PRN Reason: Protocol Gabapentin (Neurontin) 200 mg PO BID [facility] PRN Reason: Protocol Last Admin: 09/22/17 09:05 Dose: 200 mg Heparin Sodium (Porcine) (Heparin) 5,000 units SC Q8 [facility] PRN Reason: Protocol Last Admin: 09/22/17 16:01 Dose: Not Given Ceftriaxone Sodium (Rocephin 1 Gram Ivpb) 1 gm in 100 mls @ 100 mls/hr IVPB DAILY [facility] PRN Reason: Protocol Last Admin: 09/22/17 09:05 Dose: 100 mls/hr Sodium Chloride (Sodium Chloride 0.9%) 500 mls @ 250 mls/hr IV .Q2H STA Stop: 09/22/17 17:52 Last Admin: 09/22/17 16:02 Dose: 250 mls/hr Insulin Human Regular (Humulin R Low) 0 units SC ACHS [facility] PRN Reason: Protocol Last Admin: 09/22/17 11:32 Dose: Not Given Pantoprazole Sodium (Protonix Ec Tab) 40 mg PO ACB [facility] Last Admin: 09/22/17 08:14 Dose: 40 mg Prednisone (Prednisone Tab) 40 mg PO DAILY [facility] - Labs Labs: 09/22/17 16:00 09/22/17 06:00 PT 12.4 SECONDS (9.4-12.5) 09/18/17 19:00 INR 1.09 (0.93-1.08) H 09/18/17 19:00 APTT 26.7 Seconds (25.1-36.5) 09/18/17 19:00 Attending/Attestation - Attestation I have personally seen and examined this patient.: Yes I have fully participated in the care of the patient.: Yes I have reviewed all pertinent clinical information, including history, physical exam and plan: Yes Notes (Text): 09/22/17 16:23 57 year old female of HIV, COPD, on chronic methadone who presented with weakness and muscle spasms. She was found to have acute renal failure and metabolic/respiratory acidosis which improved with dialysis and iv bicarb. Nephrology, pulmonary and ID are following the patient. Consider d/c dialysis catheter if no more plan for dialysis. Continue with steroids taper and bipap at night time. Renal function has improved. Will follow up on renal US. Vinicio Cota MD Hospitalist.
[2017-09-22] MEDS: Budesonide 0.5 mg/2 ml Inhal Susp UD IH SCH ×2 (08:06→20:50)
[2017-09-22] MEDS: Pantoprazole 40 mg EC Tab PO SCH (08:14)
[2017-09-22 08:15] LABS: HEPATITIS B SURFACE AG Negative (NEGATIVE)
[2017-09-22 08:20] LABS: HEPATITIS A IGM NEGATIVE (NEGATIVE); HEPATITIS B CORE AB NEGATIVE (NEGATIVE)
[2017-09-22 08:32] LABS: HEPATITIS C ANTIBODY NEGATIVE (NEGATIVE)
[2017-09-22] MEDS: cefTRIAXone 1 gm 1 GM/100 ML BAG IVPB SCH (09:05)
[2017-09-22] MEDS: Azithromycin 500MG/NS 250ml 500 MG/250 ML BAG IVPB SCH (09:06)
[2017-09-22] MEDS ORDERED: MethylPREDNISolone 40 mg Vial IVP SCH (10:00)
--- NOTE | 2017-09-22 13:36 | NM ---
PROCEDURE: Renal scan and flow study HISTORY: Renal failure, r/o ATN COMPARISON: 09/20/2017 bilateral renal ultrasound TECHNIQUE: 10.2 mCi technetium 99 M Mag 3 administered intravenously. FINDINGS: Right Kidney: Flow component: Diminished perfusion to the right kidney. Time to peak: 9.5 minutes Peak to T1/2 Peak: 12 minutes Left Kidney: Flow component: Diminished perfusion to the left kidney although not as severe as to the right kidney. Time to peak: 6.5 minutes Peak to T1/2 Peak: 14 minutes Split Renal Function: Right kidney 39 % Left kidney 61 % IMPRESSION: No evidence of obstructive uropathy. Poorly perfused right kidney with commensurate decrease in renal function.
--- NOTE | 2017-09-22 15:36 | PCM.RRT ---
SCALE TECHNICIAN Nurse Assessment - Situation Date: 09/22/17 Time SCALE TECHNICIAN was called: 15:08 SCALE TECHNICIAN Responder Arrival Time: 15:10 SCALE TECHNICIAN Location:: [address] [place] [address] Room Number: 264-02
[2017-09-22] MEDS ORDERED: Sodium Chloride 0.9% 500 ML IV STA (15:53)
--- NOTE | 2017-09-22 16:02 | PCM.RRT ---
<Talita Clifford - Last Filed: 09/22/17 16:09> BOARD RUNNER Nurse Assessment - Situation Date: 09/22/17 Time BOARD RUNNER was called: 15:08 BOARD RUNNER Responder Arrival Time: 15:09 BOARD RUNNER Location:: [address] [place] [address] Room Number: 264-2 BOARD RUNNER Called By: RN (For bleeding after shiley catheter) - IV IV Inserted during BOARD RUNNER?: No - Respiratory Oxygen Delivery Method: Room Air - Stat Labs Ordered BOARD RUNNER Stat Labs Ordered: CBC, PT/PTT CPR started during BOARD RUNNER?: No - Vital Signs Vital Sign: 15:05 HR 80. 164/101, HR 80 15:17 hr 82, 160/93, hr 82 15:22 HR 74, 144/74, po 96 15:33 HR 78, 144/79, POx 93 - Recommendations 5) BOARD RUNNER Level of Care Recommendations: Remain in current setting Notifications: Attending Physician I.Reason for BOARD RUNNER - A) Acute Change in Patient: (Select all that apply): Uncontrolled Bleeding, Hemoptysis, Hematemesis, Melena (About 300cc blood loss) - Neurological Status (Select all that apply): Alert, Responsive, Oriented, Verbal, Follows Commands - Respiratory Oxygen Delivery Method: Room Air - Constitutional Appears: No Acute Distress - Head Head Exam: ATRAUMATIC, NORMAL INSPECTION, NORMOCEPHALIC - Eyes Eye Exam: EOMI, Normal appearance, PERRL. absent: Scleral icterus - Respiratory Exam Respiratory Exam: NORMAL BREATHING PATTERN - Cardiovascular Exam Cardiovascular Exam: REGULAR RHYTHM, +S1, +S2 - GI/Abdominal Exam GI & Abdominal Exam: Soft. absent: Guarding, Tenderness - Neurological Exam Neurological Exam: Alert, Awake, Oriented x3 - Extremities Exam Extremities Exam: Normal Capillary Refill. absent: Calf Tenderness Additional comments: R groin bleeding stopped, no active bleeding after 30 minutes of pressure applied. About 300cc blood seen underneath the sheet. Pedal pulses intact b/l. No groin hematoma appreciate Plan - Assessment of Findings&Treatment Plan 57 year old female with PMH of HIV, COPD, Sleep apnea, on Methadone , who was presented with muscle spasms, weakness, and was found to have Acute renal failure, creatinine >8, Hyperkalemia and respiratory acidosis due to likely Obesity Hypoventilation syndrome, and possible pneumonia. Patient is SP HD dialysis on 09/20 (Sat). Patient is now having good urine output as recorded on 09/21/17. Today, pratt was already removed, and RN noted pt was not urinary incontinent and had been using the commode without any problem. Today the shiley was removed. Bleeding from the shiley insertion site was observed. Pt is hemodynamically stable. - CBC, coags, T&S stat - No further bleeding observed - pressure dressing - VS q1h x 4 starting 4pm - 500 cc NS @ 250 - Recheck CBC at 9pm s/r/d/w Dr. Cota <Vinicio Cota - Last Filed: 09/22/17 16:17> Attending/Attestation - Attestation I have personally seen and examined this patient.: Yes I have fully participated in the care of the patient.: Yes I have reviewed all pertinent clinical information, including history, physical exam and plan: Yes
[2017-09-22 16:19] LABS: BASO # 0.01 K/mm3 (0.0-2.0); BASO % 0.1 % (0.0-3.0); EOS % 0.2 % (1.5-5.0); GRAN # 6.85 (1.4-6.5); GRAN % 83.2 % (50.0-68.0); HEMOGLOBIN 9.8 g/dL (12.0-16.0); LYMPH # 1.1 (1.2-3.4); LYMPH % 13.5 % (22.0-35.0); MEAN CELL VOLUME 90.4 fl (80.0-105.0); MEAN CORPUSCULAR HEMOGLOBIN 27.5 pg (25.0-35.0); MEAN CORPUSCULAR HGB CONC 30.4 g/dl (31.0-37.0); MONO # 0.3 (0.1-0.6); RBC 3.56 10^6/uL (3.5-6.1); RED CELL DISTRIBUTION WIDTH 15.4 % (11.5-14.5); WHITE BLOOD COUNT 8.2 10^3/ul (4.5-11.0)
[2017-09-22 16:24] LABS: INR 1.14 (0.93-1.08); PARTIAL THROMBOPLASTIN TIME 26.3 Seconds (25.1-36.5)
[2017-09-22] MEDS: Emtricitabine-Tenofovir 200 mg-300 mg Tab PO SCH (17:06)
[2017-09-22 21:17] LABS: BASO # 0.01 K/mm3 (0.0-2.0); BASO % 0.1 % (0.0-3.0); EOS # 0.1 (0.0-0.7); EOS % 0.5 % (1.5-5.0); GRAN # 6.9 (1.4-6.5); HEMOGLOBIN 9.9 g/dL (12.0-16.0); LYMPH # 2.1 (1.2-3.4); LYMPH % 22.1 % (22.0-35.0); MEAN CORPUSCULAR HEMOGLOBIN 27.9 pg (25.0-35.0); MEAN CORPUSCULAR HGB CONC 30.7 g/dl (31.0-37.0); MONO # 0.4 (0.1-0.6); MONO % 4.3 % (1.0-6.0); RBC 3.55 10^6/uL (3.5-6.1); RED CELL DISTRIBUTION WIDTH 15.4 % (11.5-14.5); WHITE BLOOD COUNT 9.5 10^3/ul (4.5-11.0)
--- NOTE | 2017-09-22 23:37 | CP.PCM.PN ---
Subjective - Date & Time of Evaluation Date of Evaluation: 09/22/17 Time of Evaluation: 22:00 - Subjective Subjective: Infectious Disease Follow Up: September 22, 2017 57 yo female with PMH of DM, HTN, OA of b/l knees, HIV, COPD, and osteoporosis presents to [facility] due to a 1 week history of weakness, cold like symptoms, and b/ l LE pain. Pt complains of cough that is productive with green sputum, shortness of breath, and sinus congestion. She states that she receives her HIV medication scripts from the [facility]. Found to have respiratory acidosis and metabolic alkalosis on ABG. Shiley cath placed for HD. Transferred to MICU for further care. Mild leukocytosis noted. Patient remains just overly concerned about eating over anything else. She has been transferred back to the medical floor. Improvement to respiratory acidosis and metabolic alkalosis. Had Rapid Response for bleeding at Shiley catheter site. Objective - Vital Signs/Intake and Output Vital Signs (last 24 hours): Temp Pulse Resp BP Pulse Ox 98.6 F 77 20 144/76 97 09/22/17 17:23 09/22/17 17:23 09/22/17 17:23 09/22/17 17:23 09/22/17 06:00 Intake and Output: 09/22/17 09/23/17 18:59 06:59 Intake Total 660 Balance 660 - Medications Medications: Current Medications Acetaminophen (Tylenol 325mg Tab) 650 mg PO Q6H PRN PRN Reason: Pain, Mild (1-3) Last Admin: 09/22/17 22:21 Dose: 650 mg Albuterol/Ipratropium (Duoneb 3 Mg/0.5 Mg (3 Ml) Ud) 3 ml IH Q4H PRN PRN Reason: Shortness of Breath Artificial Tears (Artificial Tears) 0 ml OU Q1H PRN PRN Reason: Dry eyes Aspirin (Aspirin Chewable) 81 mg PO DAILY [facility] Last Admin: 09/19/17 09:54 Dose: 81 mg Atazanavir (Reyataz) 300 mg PO DAILY [facility] Last Admin: 09/22/17 17:07 Dose: 300 mg Azithromycin (Zithromax) 500 mg PO DAILY [facility] Budesonide (Pulmicort Respules) 0.5 mg IH [id number] [facility] Last Admin: 09/22/17 20:50 Dose: 0.5 mg Emtricitabine/Tenofovir (Truvada 200 Mg-300 Mg) 0 tab PO DAILY [facility] PRN Reason: Protocol Last Admin: 09/22/17 17:06 Dose: 1 tab Gabapentin (Neurontin) 200 mg PO BID [facility] PRN Reason: Protocol Last Admin: 09/22/17 17:06 Dose: 200 mg Heparin Sodium (Porcine) (Heparin) 5,000 units SC Q8 [facility] PRN Reason: Protocol Last Admin: 09/22/17 16:01 Dose: Not Given Ceftriaxone Sodium (Rocephin 1 Gram Ivpb) 1 gm in 100 mls @ 100 mls/hr IVPB DAILY [facility] PRN Reason: Protocol Last Admin: 09/22/17 09:05 Dose: 100 mls/hr Insulin Human Regular (Humulin R Low) 0 units SC ACHS [facility] PRN Reason: Protocol Last Admin: 09/22/17 22:19 Dose: Not Given Pantoprazole Sodium (Protonix Ec Tab) 40 mg PO ACB [facility] Last Admin: 09/22/17 08:14 Dose: 40 mg Prednisone (Prednisone Tab) 40 mg PO DAILY [facility] - Labs Labs: 09/22/17 21:05 09/22/17 06:00 PT 13.0 SECONDS (9.4-12.5) H 09/22/17 16:00 INR 1.14 (0.93-1.08) H 09/22/17 16:00 APTT 26.3 Seconds (25.1-36.5) 09/22/17 16:00 - Constitutional Appears: Non-toxic, No Acute Distress, Chronically Ill - Head Exam Head Exam: ATRAUMATIC, NORMOCEPHALIC - Eye Exam Eye Exam: EOMI, PERRL Pupil Exam: NORMAL ACCOMODATION, PERRL - ENT Exam ENT Exam: Mucous Membranes Moist, Normal External Ear Exam, TM's Normal Bilaterally - Neck Exam Neck Exam: Full ROM, Normal Inspection - Respiratory Exam Respiratory Exam: Decreased Breath Sounds, NORMAL BREATHING PATTERN. absent: Rales, Rhonchi, Wheezes - Cardiovascular Exam Cardiovascular Exam: REGULAR RHYTHM, RRR, +S1, +S2 - GI/Abdominal Exam GI & Abdominal Exam: Soft, Normal Bowel Sounds. absent: Distended, Tenderness - Extremities Exam Extremities Exam: Full ROM, Normal Inspection - Neurological Exam Neurological Exam: Alert, Awake, CN II-XII Intact, Oriented x3 - Psychiatric Exam Psychiatric exam: Normal Affect, Normal Mood - Skin Skin Exam: Intact, Normal Color Assessment and Plan - Assessment and Plan (Free Text) Assessment: 57 yo female with multiple medical issues including HIV, knee pain, Morbid Obesity, Renal insufficiency, conjunctivitis presenting with cough and SOB for the past week. Possible pneumonia seen in Chest X-ray. Supportive care. Started on Azithromycin and Rocephin for initial antibiotic coverage. Need CD4 and HIV Viral load to be done. Her last CD4 was 862 and Undetectable viral load taken 1 year ago. The patient does not know her HAART regimen. Need confirmation from her clinic regarding medications. Awaiting CD4 and HIV viral load results. Supportive care. CD4 of 305. HIV Viral load of log 3.4. On Truvada and Reyataz for HAART. Thank you for allowing me to participate in the care of the patient, we will follow with you.
[2017-09-23 06:26] LABS: HEMOGLOBIN 9.9 g/dL (12.0-16.0); MEAN CELL VOLUME 91.3 fl (80.0-105.0); MEAN CORPUSCULAR HEMOGLOBIN 27.7 pg (25.0-35.0); MEAN CORPUSCULAR HGB CONC 30.4 g/dl (31.0-37.0); MEAN PLATELET VOLUME 9.9 fl (7.0-11.0); RBC 3.57 10^6/uL (3.5-6.1); RED CELL DISTRIBUTION WIDTH 15.4 % (11.5-14.5); WHITE BLOOD COUNT 8.8 10^3/ul (4.5-11.0)
[2017-09-23 07:07] LABS: ALB/GLOB RATIO 0.8 (1.1-1.8); ALBUMIN 3.2 g/dL (3.0-4.8); ALT/SGPT 43 U/L (7-56); AST/SGOT 59 U/L (14-36); BLOOD UREA NITROGEN 27 mg/dL (7-21); GFR AFRICAN-AMERICAN > 60; GFR NON-AFRICAN AMERICAN > 60
[2017-09-23] MEDS: Insulin Reg-LOW-Coverage SC SCH ×4 (07:46→21:59)
[2017-09-23] MEDS: Pantoprazole 40 mg EC Tab PO SCH (07:47)
[2017-09-23] MEDS: Albuterol-Ipratrop 3 mg / 0.5 (3 ml) UD IH PRN (08:14)
[2017-09-23] MEDS: Budesonide 0.5 mg/2 ml Inhal Susp UD IH SCH (08:14)
--- NOTE | 2017-09-23 09:38 | CARD ---
APPROVED REPORT EXAM: Two-dimensional and M-mode echocardiogram with Doppler and color Doppler. Other Information Quality : AverageRhythm : INDICATION ASSESS CARDIAC FUNCTION 2D DIMENSIONS Left Atrium (2D)4.5 (1.6-4.0cm)IVSd1.2 (0.7-1.1cm) LVDd4.8 (3.9-5.9cm)PWd1.2 (0.7-1.1cm) LVDs2.9 (2.5-4.0cm)FS (%) 38.3 % LVEF (%)68.0 (>50%) M-Mode DIMENSIONS Aortic Root3.60 (2.2-3.7cm)Aortic Cusp Exc.2.00 (1.5-2.0cm) Aortic Valve AoV Peak Xskqqybv375.0cm/sAoV VTI56.3cmAO Peak GR.34mmHg LVOT Peak Uvwwqujp904.0cm/sLVOT VTI36.50cmAO Mean GR.15mmHg AI P 1/2 Xdmt245rm Mitral Valve MV E Narqziol724.0cm/sMV A Retroglt955.0cm/sE/A ratio0.9 TDI Lateral E' Peak V10.80cm/sMedial E' Peak V7.70cm/sE/Lateral E'9.8 E/Medial E'13.8 Pulmonary Valve PV Peak Rbsvgxob17.5cm/sPV Peak Grad.3mmHg Tricuspid Valve TR Peak Txyfcxfi049hz/sRAP SREIHCGG66ueVzOP Peak Gr.47mmHg [id number] LEFT VENTRICLE The left ventricle is normal size. There is mild concentric left ventricular hypertrophy. The left ventricular function is normal. The left ventricular ejection fraction is within the normal range. There is normal LV segmental wall motion. RIGHT VENTRICLE The right ventricle is normal size. ATRIA The left atrium is mildly dilated. The right atrium size is normal. The interatrial septum is intact with no evidence for an atrial septal defect. AORTIC VALVE The aortic valve is mildly calcified. There is mild aortic regurgitation. MITRAL VALVE The mitral valve is normal in structure. Mitral regurgitation is trace. TRICUSPID VALVE The tricuspid valve is normal in structure. There is trace tricuspid regurgitation. PULMONIC VALVE The pulmonic valve is not well visualized. GREAT VESSELS The aortic root is normal in size. PERICARDIAL EFFUSION There is no pericardial effusion. <Conclusion> The left ventricle is normal size. There is mild concentric left ventricular hypertrophy. The left ventricular function is normal. The aortic valve is mildly calcified. Aortic sclerosis vs. mild . There is mild aortic regurgitation.
[2017-09-23] MEDS: Emtricitabine-Tenofovir 200 mg-300 mg Tab PO SCH (09:50)
[2017-09-23] MEDS: cefTRIAXone 1 gm 1 GM/100 ML BAG IVPB SCH (10:00)
--- NOTE | 2017-09-23 13:47 | CP.PCM.PN ---
<Angelita Villalta - Last Filed: 09/23/17 16:12> Subjective - Date & Time of Evaluation Date of Evaluation: 09/23/17 Time of Evaluation: 13:46 - Subjective Subjective: Internal Medicine Progress Note: Patient seen and examined at bedside. Yesterday RIGHT OF WAY BUYER was called for the patient. After HD catheter was removed at the bedside, patient started bleeding from the site. Blood loss was approximately 300cc. Hgb is stable. This morning she reports feeling dizzy, and still with right leg numbness. Denies headaches, cp, palpitations, sob, abdominal pain, urinary symptoms. Objective - Vital Signs/Intake and Output Vital Signs (last 24 hours): Temp Pulse Resp BP Pulse Ox 98.7 F 86 20 153/86 H 97 09/23/17 12:00 09/23/17 12:00 09/23/17 12:00 09/23/17 12:00 09/22/17 06:00 Intake and Output: 09/23/17 09/23/17 06:59 18:59 Intake Total 420 Output Total 750 Balance -330 - Medications Medications: Current Medications Acetaminophen (Tylenol 325mg Tab) 650 mg PO Q6H PRN PRN Reason: Pain, Mild (1-3) Last Admin: 09/23/17 11:49 Dose: 650 mg Albuterol/Ipratropium (Duoneb 3 Mg/0.5 Mg (3 Ml) Ud) 3 ml IH Q4H PRN PRN Reason: Shortness of Breath Last Admin: 09/23/17 08:14 Dose: 3 ml Artificial Tears (Artificial Tears) 0 ml OU Q1H PRN PRN Reason: Dry eyes Aspirin (Aspirin Chewable) 81 mg PO DAILY [facility] Last Admin: 09/19/17 09:54 Dose: 81 mg Atazanavir (Reyataz) 300 mg PO DAILY [facility] Last Admin: 09/23/17 09:50 Dose: 300 mg Azithromycin (Zithromax) 500 mg PO DAILY [facility] Last Admin: 09/23/17 09:50 Dose: 500 mg Budesonide (Pulmicort Respules) 0.5 mg IH [id number] [facility] Last Admin: 09/23/17 08:14 Dose: 0.5 mg Emtricitabine/Tenofovir (Truvada 200 Mg-300 Mg) 0 tab PO DAILY [facility] PRN Reason: Protocol Last Admin: 09/23/17 09:50 Dose: 1 tab Gabapentin (Neurontin) 300 mg PO TID [facility] PRN Reason: Protocol Last Admin: 09/23/17 09:50 Dose: 300 mg Heparin Sodium (Porcine) (Heparin) 5,000 units SC Q8 [facility] PRN Reason: Protocol Last Admin: 09/23/17 07:39 Dose: 5,000 units Ceftriaxone Sodium (Rocephin 1 Gram Ivpb) 1 gm in 100 mls @ 100 mls/hr IVPB DAILY [facility] PRN Reason: Protocol Last Admin: 09/23/17 10:00 Dose: 100 mls/hr Insulin Human Regular (Humulin R Low) 0 units SC ACHS [facility] PRN Reason: Protocol Last Admin: 09/23/17 11:53 Dose: Not Given Pantoprazole Sodium (Protonix Ec Tab) 40 mg PO ACB [facility] Last Admin: 09/23/17 07:47 Dose: 40 mg Prednisone (Prednisone Tab) 40 mg PO DAILY [facility] Last Admin: 09/23/17 09:49 Dose: 40 mg Ritonavir (Norvir) 100 mg PO DAILY [facility] PRN Reason: Protocol Last Admin: 09/23/17 11:50 Dose: 100 mg - Labs Labs: 09/23/17 05:30 09/23/17 05:30 PT 13.0 SECONDS (9.4-12.5) H 09/22/17 16:00 INR 1.14 (0.93-1.08) H 09/22/17 16:00 APTT 26.3 Seconds (25.1-36.5) 09/22/17 16:00 - Additional Findings Additional findings: - Constitutional Appears: Non-toxic, No Acute Distress - Head Exam Head Exam: ATRAUMATIC, NORMOCEPHALIC - Eye Exam Eye Exam: EOMI, Normal appearance - ENT Exam ENT Exam: Mucous Membranes Moist, Normal Oropharynx - Neck Exam Neck Exam: Normal Inspection - Respiratory Exam Respiratory Exam: Clear to Ausculation Bilateral, NORMAL BREATHING PATTERN. absent: Accessory Muscle Use - Cardiovascular Exam Cardiovascular Exam: RRR, +S1, +S2 - GI/Abdominal Exam GI & Abdominal Exam: Soft, Normal Bowel Sounds. absent: Guarding - Extremities Exam Extremities Exam: Normal Inspection. +HD catheter in right groin absent: Calf Tenderness - Neurological Exam Neurological Exam: Alert, Awake, Oriented x3 - Psychiatric Exam Psychiatric exam: Normal Affect, Normal Mood - Skin Skin Exam: Dry, Intact, Normal Color, Warm Assessment and Plan - Assessment and Plan (Free Text) Assessment: 57 year old female with a past medical history of HIV, COPD, OHS, who was presented with muscle spasms, weakness, and was found to have Acute Kidney Injury, Hyperkalemia, respiratory acidosis with metabolic component, and possible pneumonia. Patient got trialysis catheter in the groin for urgent HD and levophed for hypotension. Pateint's hypercapnia and acidosis was treated with BIPAP/CPAP, bicarbonate drip, and HD. COPD and pneumonia being treated with IV ceftriaxone, azithromycin, budesonide. Patient's hyperkalemia is being treated with intermittent Kayexelate and albuterol. Patient DM II is being managed with regular insulin ISS . Patient Methadone has been resumed and will administer as 20% day 1, 50% day 2, and 100% by day 3, unless patient decompensates into respiratory distress. Patient underwent one session of HD with significant improvement in GFR and is maintaining good urine output. Patient's CD4 count is 305 and most recent Cr was 1.0. Infectious disease is following. Patient was taking Truvada and Reyatz as an outpatient. Patient is As of 09/21/17, patient has been transferred out of ICU to telemetry for further observation. Patient is on Renal diet. Continue to follow ID, Nephrology consultations. Plan: 1) Respiratory acidosis with concomitant metabolic acidosis and hyperkalemia - Bicarbonate drip discontinued - Levophed drip discontinued - Discontinue telemetry - Continue CPAP/BIPAP prn - Supplemental O2 as needed - Duonebs q4H prn - PT recommending [facility] for disposition; patient is ammendable to going to [facility] - Awaiting placement at this time 2) Acute Kidney Injury (resolved) - Per Nephro, patient no longer needs hemodialysis - HD catheter removed 09/22/17 - Renal US: No evidence of obstructive uropathy, poorly perfused right kidney with commensurate decrease in renal function - Avoid nephrotoxins - Nephrology following, f/u recommendations 3) DM II with neuropathy - Insulin regular sliding scale - Will decrease Gabapentin back to 200mg PO BID in light of dizziness - Accuchecks ACHS 4) Possible Infection, pneumonia - Antibiotics: Azithromycin 500mg PO daily - Duonebs q4H prn 5) HIV - ID following, appreciate recommendations - CD4 count 305 - HAART: patient was on Truvada Reluis manuel, Ritonavir 100mg PO daily - Will restart HIV medications 6) COPD with obesity hypoventilation syndrome - Prednisone 40mg PO today - BIPAP/CPAP as needed - Pulmonology/Critical Care following 7) Opiod dependency - Increased Methadone 100mg PO today - Tomorrow will start home dose Methadone 8) Onychomycosis - Podiatry consulted, help appreciated 9) Hypomagnesemia -Mg 1.6 today, repleted -Continue to monitor electrolytes DVT/GI prophylaxis - Heparin 5,000 U q12h - Protonix 40mg PO daily Plan discussed with Dr Cota <Vinicio Cota - Last Filed: 09/23/17 16:21> Objective - Vital Signs/Intake and Output Vital Signs (last 24 hours): Temp Pulse Resp BP Pulse Ox 98.7 F 86 20 153/86 H 97 09/23/17 12:00 09/23/17 12:00 09/23/17 12:00 09/23/17 12:00 09/22/17 06:00 Intake and Output: 09/23/17 09/23/17 06:59 18:59 Intake Total 420 600 Output Total 750 0 Balance -330 600 - Medications Medications: Current Medications Acetaminophen (Tylenol 325mg Tab) 650 mg PO Q6H PRN PRN Reason: Pain, Mild (1-3) Last Admin: 09/23/17 11:49 Dose: 650 mg Albuterol/Ipratropium (Duoneb 3 Mg/0.5 Mg (3 Ml) Ud) 3 ml IH Q4H PRN PRN Reason: Shortness of Breath Last Admin: 09/23/17 08:14 Dose: 3 ml Artificial Tears (Artificial Tears) 0 ml OU Q1H PRN PRN Reason: Dry eyes Aspirin (Aspirin Chewable) 81 mg PO DAILY [facility] Last Admin: 09/19/17 09:54 Dose: 81 mg Atazanavir (Reyataz) 300 mg PO DAILY [facility] Last Admin: 09/23/17 09:50 Dose: 300 mg Azithromycin (Zithromax) 500 mg PO DAILY [facility] Last Admin: 09/23/17 09:50 Dose: 500 mg Budesonide (Pulmicort Respules) 0.5 mg IH [id number] [facility] Last Admin: 09/23/17 08:14 Dose: 0.5 mg Emtricitabine/Tenofovir (Truvada 200 Mg-300 Mg) 0 tab PO DAILY [facility] PRN Reason: Protocol Last Admin: 09/23/17 09:50 Dose: 1 tab Gabapentin (Neurontin) 100 mg PO BID [facility] PRN Reason: Protocol Heparin Sodium (Porcine) (Heparin) 5,000 units SC Q8 [facility] PRN Reason: Protocol Last Admin: 09/23/17 13:48 Dose: 5,000 units Insulin Human Regular (Humulin R Low) 0 units SC ACHS [facility] PRN Reason: Protocol Last Admin: 09/23/17 11:53 Dose: Not Given Pantoprazole Sodium (Protonix Ec Tab) 40 mg PO ACB [facility] Last Admin: 09/23/17 07:47 Dose: 40 mg Prednisone (Prednisone Tab) 40 mg PO DAILY [facility] Last Admin: 09/23/17 09:49 Dose: 40 mg Ritonavir (Norvir) 100 mg PO DAILY [facility] PRN Reason: Protocol Last Admin: 09/23/17 11:50 Dose: 100 mg - Labs Labs: 09/23/17 05:30 09/23/17 05:30 PT 13.0 SECONDS (9.4-12.5) H 09/22/17 16:00 INR 1.14 (0.93-1.08) H 09/22/17 16:00 APTT 26.3 Seconds (25.1-36.5) 09/22/17 16:00 Attending/Attestation - Attestation I have personally seen and examined this patient.: Yes I have fully participated in the care of the patient.: Yes I have reviewed all pertinent clinical information, including history, physical exam and plan: Yes Notes (Text): 09/23/17 16:19 57 year old female of HIV, COPD, on chronic methadone who presented with weakness and muscle spasms. She was found to have acute renal failure and metabolic/respiratory acidosis which improved with dialysis and iv bicarb. Case was discussed with single wire saw operator today. Her creatinine has improved to baseline. Continue with steroids taper and bipap at night time. Counselled on weight loss and diet modifications for obesity. She is on gabapentin for neuropathy and reports she was taking higher doses at home. Will decrease dose as she is complaining of dizziness today. PT evaluation was appreciated who recommended [facility]. Will discuss with continuous pillowcase cutter and social media marketing specialist. Vinicio Cota MD Hospitalist.
--- NOTE | 2017-09-23 16:44 | CON ---
DATE: HISTORY OF PRESENT ILLNESS: A 57-year-old morbidly obese diabetic female seen at bedside with chief complaint of painful, elongated, thickened fungal nail plates. The patient is insulin-dependent diabetic with peripheral neuropathy. PAST MEDICAL HISTORY: Includes longstanding insulin-dependent diabetes with peripheral neuropathy, HIV positivity, essential hypertension, chronic obstructive pulmonary disease, osteoporosis. PAST SURGICAL HISTORY: Includes ear surgery. ALLERGIES: The patient has no known drug allergies. SOCIAL HISTORY: Includes polysubstance abuse with heroin, cocaine, but no alcohol. She has a half pack per year, 30-year history. MEDICATIONS: Active medications include Neurontin, aspirin, DuoNeb, Tylenol, heparin, azithromycin, methadone, and Protonix. FAMILY HISTORY: Unremarkable. Vital signs reveal temperature of 98.7, pulse rate of 86, blood pressure 153/86, respiratory rate of 20. LABORATORY FINDINGS: Reveal white count of 8.8, hemoglobin of 9.9, hematocrit of 32.6, platelet count of 162. OBJECTIVE: Palpable pedal pulses noted bilaterally. Absent pedal hair growth noted bilaterally. Lower extremity skin presents thin, shining, discolored bilaterally. The patient is unable to detect 5.07 g monofilament wire testing bilaterally. The patient reports numbness, burning, and tingling in both feet. There are noted to be elongated, thickened, dystrophic, discolored fungal toenails on all digits of the right foot as well as on the first and fifth digits of the left foot. There are noted to be hyperkeratotic lesions at the medial aspect of the first interphalangeal joint on both great toes, preulcerative in nature. ASSESSMENT Insulin-dependent diabetes with neuropathy, onychomycosis, preulcerative hyperkeratoses. PLAN: Diabetic foot education was given to the patient and pedal risks associated with peripheral neuropathy and pedal soft treatment were explained. The patient was advised to never go barefoot except when bathing and sleeping. Excisional debridement was performed on all nail plates and hyperkeratotic lesions. The patient was told to follow up periodically with a c++ professor every 3 months for at-risk diabetic foot care. Randolph Atkinson DPM [facility] # [id number]
[2017-09-23 23:41] VITALS: RESP 20
--- NOTE | 2017-09-24 00:05 | CP.PCM.PN ---
Subjective - Date & Time of Evaluation Date of Evaluation: 09/23/17 Time of Evaluation: 21:30 - Subjective Subjective: Infectious Disease Follow Up: September 23, 2017 57 yo female with PMH of DM, HTN, OA of b/l knees, HIV, COPD, and osteoporosis presents to [facility] due to a 1 week history of weakness, cold like symptoms, and b/ l LE pain. Pt complains of cough that is productive with green sputum, shortness of breath, and sinus congestion. She states that she receives her HIV medication scripts from the [facility]. Found to have respiratory acidosis and metabolic alkalosis on ABG. Shiley cath placed for HD. Transferred to MICU for further care. Mild leukocytosis noted. Patient remains just overly concerned about eating over anything else. She has been transferred back to the medical floor. Improvement to respiratory acidosis and metabolic alkalosis. Had Rapid Response for bleeding at Shiley catheter site. She is awaiting placement. Objective - Vital Signs/Intake and Output Vital Signs (last 24 hours): Temp Pulse Resp BP Pulse Ox 98 F 83 20 130/82 96 09/23/17 22:00 09/23/17 22:00 09/23/17 22:00 09/23/17 22:00 09/23/17 22:00 Intake and Output: 09/23/17 09/24/17 18:59 06:59 Intake Total 600 420 Output Total 0 Balance 600 420 - Medications Medications: Current Medications Acetaminophen (Tylenol 325mg Tab) 650 mg PO Q6H PRN PRN Reason: Pain, Mild (1-3) Last Admin: 09/23/17 11:49 Dose: 650 mg Albuterol/Ipratropium (Duoneb 3 Mg/0.5 Mg (3 Ml) Ud) 3 ml IH Q4H PRN PRN Reason: Shortness of Breath Last Admin: 09/23/17 08:14 Dose: 3 ml Artificial Tears (Artificial Tears) 0 ml OU Q1H PRN PRN Reason: Dry eyes Aspirin (Aspirin Chewable) 81 mg PO DAILY [facility] Last Admin: 09/19/17 09:54 Dose: 81 mg Atazanavir (Reyataz) 300 mg PO DAILY [facility] Last Admin: 09/23/17 09:50 Dose: 300 mg Azithromycin (Zithromax) 500 mg PO DAILY [facility] Last Admin: 09/23/17 09:50 Dose: 500 mg Budesonide (Pulmicort Respules) 0.5 mg IH [id number] [facility] Last Admin: 09/23/17 08:14 Dose: 0.5 mg Emtricitabine/Tenofovir (Truvada 200 Mg-300 Mg) 0 tab PO DAILY [facility] PRN Reason: Protocol Last Admin: 09/23/17 09:50 Dose: 1 tab Gabapentin (Neurontin) 100 mg PO BID [facility] PRN Reason: Protocol Last Admin: 09/23/17 17:14 Dose: 100 mg Heparin Sodium (Porcine) (Heparin) 5,000 units SC Q8 [facility] PRN Reason: Protocol Last Admin: 09/23/17 21:59 Dose: 5,000 units Insulin Human Regular (Humulin R Low) 0 units SC ACHS [facility] PRN Reason: Protocol Last Admin: 09/23/17 21:59 Dose: 4 units Losartan Potassium (Cozaar) 100 mg PO DAILY [facility] Pantoprazole Sodium (Protonix Ec Tab) 40 mg PO ACB [facility] Last Admin: 09/23/17 07:47 Dose: 40 mg Prednisone (Prednisone Tab) 40 mg PO DAILY [facility] Last Admin: 09/23/17 09:49 Dose: 40 mg Ritonavir (Norvir) 100 mg PO DAILY [facility] PRN Reason: Protocol Last Admin: 09/23/17 11:50 Dose: 100 mg - Labs Labs: 09/23/17 05:30 09/23/17 05:30 PT 13.0 SECONDS (9.4-12.5) H 09/22/17 16:00 INR 1.14 (0.93-1.08) H 09/22/17 16:00 APTT 26.3 Seconds (25.1-36.5) 09/22/17 16:00 - Constitutional Appears: Non-toxic, No Acute Distress, Chronically Ill - Head Exam Head Exam: ATRAUMATIC, NORMOCEPHALIC - Eye Exam Eye Exam: EOMI, PERRL Pupil Exam: NORMAL ACCOMODATION, PERRL - ENT Exam ENT Exam: Mucous Membranes Moist, Normal External Ear Exam, TM's Normal Bilaterally - Neck Exam Neck Exam: Full ROM, Normal Inspection - Respiratory Exam Respiratory Exam: Decreased Breath Sounds, NORMAL BREATHING PATTERN. absent: Rales, Rhonchi, Wheezes - Cardiovascular Exam Cardiovascular Exam: REGULAR RHYTHM, RRR, +S1, +S2 - GI/Abdominal Exam GI & Abdominal Exam: Soft, Normal Bowel Sounds. absent: Distended, Tenderness - Extremities Exam Extremities Exam: Full ROM, Normal Inspection - Neurological Exam Neurological Exam: Alert, Awake, CN II-XII Intact, Oriented x3 - Psychiatric Exam Psychiatric exam: Normal Affect, Normal Mood - Skin Skin Exam: Intact, Normal Color Assessment and Plan - Assessment and Plan (Free Text) Assessment: 57 yo female with multiple medical issues including HIV, knee pain, Morbid Obesity, Renal insufficiency, conjunctivitis presenting with cough and SOB for the past week. Possible pneumonia seen in Chest X-ray. Supportive care. Started on Azithromycin and Rocephin for initial antibiotic coverage. Need CD4 and HIV Viral load to be done. Her last CD4 was 862 and Undetectable viral load taken 1 year ago. The patient does not know her HAART regimen. Need confirmation from her clinic regarding medications. Awaiting CD4 and HIV viral load results. Supportive care. CD4 of 305. HIV Viral load of log 3.4. On Truvada and Reyataz for HAART. Patient awaiting placement. Thank you for allowing me to participate in the care of the patient, we will follow with you.
[2017-09-24] MEDS: Budesonide 0.5 mg/2 ml Inhal Susp UD IH SCH ×2 (00:10→08:22)
[2017-09-24] MEDS: Albuterol-Ipratrop 3 mg / 0.5 (3 ml) UD IH PRN ×2 (01:49→08:23)
--- NOTE | 2017-09-24 06:44 | CP.PCM.PN ---
Subjective - Date & Time of Evaluation Date of Evaluation: 09/23/17 Time of Evaluation: 11:00 - Subjective Subjective: 57 yo F w/ pmh of htn, COPD, morbid obesity, and HIV on HAART, admitted with acute renal failure, now resolved; Reports having been on bactrim daily since past few months to prevent pneumonia (PCP?); otherwise, currently reports being scared about her overall health; Objective - Vital Signs/Intake and Output Vital Signs (last 24 hours): Temp Pulse Resp BP Pulse Ox 98 F 83 20 130/82 96 09/23/17 22:00 09/23/17 22:00 09/23/17 22:00 09/23/17 22:00 09/23/17 22:00 Intake and Output: 09/23/17 09/24/17 18:59 06:59 Intake Total 600 660 Output Total 0 Balance 600 660 - Medications Medications: Current Medications Acetaminophen (Tylenol 325mg Tab) 650 mg PO Q6H PRN PRN Reason: Pain, Mild (1-3) Last Admin: 09/24/17 05:26 Dose: 650 mg Albuterol/Ipratropium (Duoneb 3 Mg/0.5 Mg (3 Ml) Ud) 3 ml IH Q4H PRN PRN Reason: Shortness of Breath Last Admin: 09/24/17 01:49 Dose: 3 ml Artificial Tears (Artificial Tears) 0 ml OU Q1H PRN PRN Reason: Dry eyes Aspirin (Aspirin Chewable) 81 mg PO DAILY [facility] Last Admin: 09/19/17 09:54 Dose: 81 mg Atazanavir (Reyataz) 300 mg PO DAILY [facility] Last Admin: 09/23/17 09:50 Dose: 300 mg Azithromycin (Zithromax) 500 mg PO DAILY [facility] Last Admin: 09/23/17 09:50 Dose: 500 mg Budesonide (Pulmicort Respules) 0.5 mg IH [id number] [facility] Last Admin: 09/24/17 00:10 Dose: Not Given Emtricitabine/Tenofovir (Truvada 200 Mg-300 Mg) 0 tab PO DAILY [facility] PRN Reason: Protocol Last Admin: 09/23/17 09:50 Dose: 1 tab Gabapentin (Neurontin) 100 mg PO BID [facility] PRN Reason: Protocol Last Admin: 09/23/17 17:14 Dose: 100 mg Heparin Sodium (Porcine) (Heparin) 5,000 units SC Q8 [facility] PRN Reason: Protocol Last Admin: 09/24/17 05:22 Dose: 5,000 units Insulin Human Regular (Humulin R Low) 0 units SC ACHS [facility] PRN Reason: Protocol Last Admin: 09/23/17 21:59 Dose: 4 units Losartan Potassium (Cozaar) 100 mg PO DAILY [facility] Pantoprazole Sodium (Protonix Ec Tab) 40 mg PO ACB [facility] Last Admin: 09/23/17 07:47 Dose: 40 mg Prednisone (Prednisone Tab) 40 mg PO DAILY [facility] Last Admin: 09/23/17 09:49 Dose: 40 mg Ritonavir (Norvir) 100 mg PO DAILY [facility] PRN Reason: Protocol Last Admin: 09/23/17 11:50 Dose: 100 mg - Labs Labs: 09/23/17 05:30 09/23/17 05:30 PT 13.0 SECONDS (9.4-12.5) H 09/22/17 16:00 INR 1.14 (0.93-1.08) H 09/22/17 16:00 APTT 26.3 Seconds (25.1-36.5) 09/22/17 16:00 - Constitutional Appears: Non-toxic, No Acute Distress - Eye Exam Eye Exam: absent: Scleral icterus - ENT Exam ENT Exam: Mucous Membranes Moist - Neck Exam Neck Exam: absent: Lymphadenopathy - Respiratory Exam Respiratory Exam: Clear to Ausculation Bilateral. absent: Respiratory Distress - Cardiovascular Exam Cardiovascular Exam: RRR, +S1, +S2 - GI/Abdominal Exam GI & Abdominal Exam: Soft. absent: Distended - Neurological Exam Neurological Exam: Alert, Awake - Psychiatric Exam Additional comments: melancholic at times; - Skin Skin Exam: Warm. absent: Cyanosis Assessment and Plan (1) Acute kidney failure Assessment & Plan: Rapid improvement with IVF consistent with pre-renal etiology although inciting cause not completely clear; likely multifactorial; IVF stopped, will monitor off of it; Status: Resolved (2) Metabolic alkalosis with respiratory acidosis Assessment & Plan: Primary respiratory acidosis with inadequate metabolic compensation on presentation in the setting of renal failure; now with metabolic alkalosis after being on bicarb drip, appropriately stopped by primary team; should check blood gas before d/c; Status: Acute (3) HTN (hypertension) Assessment & Plan: BP fluctuating off of anti-htn agents; if BP remains elevated, restart valsartan at half dose; Status: Chronic (4) Anemia Assessment & Plan: Hgb relatively stable after bleeding from site of femoral catheter; monitor; Status: Acute
[2017-09-24 08:07] LABS: BASO # 0.02 K/mm3 (0.0-2.0); BASO % 0.2 % (0.0-3.0); EOS # 0.2 (0.0-0.7); GRAN # 5.59 (1.4-6.5); GRAN % 57.9 % (50.0-68.0); HEMOGLOBIN 9.5 g/dL (12.0-16.0); LYMPH # 3.1 (1.2-3.4); LYMPH % 32.2 % (22.0-35.0); MEAN CELL VOLUME 91.3 fl (80.0-105.0); MEAN CORPUSCULAR HEMOGLOBIN 27.6 pg (25.0-35.0); MEAN CORPUSCULAR HGB CONC 30.3 g/dl (31.0-37.0); MEAN PLATELET VOLUME 9.9 fl (7.0-11.0); MONO # 0.7 (0.1-0.6); MONO % 7.7 % (1.0-6.0); RBC 3.44 10^6/uL (3.5-6.1); RED CELL DISTRIBUTION WIDTH 15.3 % (11.5-14.5); WHITE BLOOD COUNT 9.6 10^3/ul (4.5-11.0)
[2017-09-24] MEDS: Pantoprazole 40 mg EC Tab PO SCH (08:08)
[2017-09-24] MEDS: Insulin Reg-LOW-Coverage SC SCH ×3 (08:08→16:30)
[2017-09-24] MEDS ORDERED: Magnesium Sulfate 2 GM in Sodium Chloride 0.9% 100 ML IVPB ONE (08:21)
[2017-09-24 08:27] VITALS: O2SAT 97
[2017-09-24 08:40] LABS: ALB/GLOB RATIO 0.8 (1.1-1.8); ALBUMIN 3.3 g/dL (3.0-4.8); ALT/SGPT 63 U/L (7-56); AST/SGOT 55 U/L (14-36); BLOOD UREA NITROGEN 24 mg/dL (7-21); CALCIUM 9.5 mg/dL (8.4-10.5); GFR AFRICAN-AMERICAN > 60; GFR NON-AFRICAN AMERICAN > 60
[2017-09-24] MEDS: Emtricitabine-Tenofovir 200 mg-300 mg Tab PO SCH (11:05)
--- NOTE | 2017-09-24 13:32 | CP.PCM.PN ---
Subjective - Date & Time of Evaluation Date of Evaluation: 09/24/17 Time of Evaluation: 13:31 - Subjective Subjective: Internal Medicine Progress Note: Patient seen and examined at bedside. Per nursing no acute events overnight. Patient states that dizziness has improved. Still having right leg numbness. Objective - Vital Signs/Intake and Output Vital Signs (last 24 hours): Temp Pulse Resp BP Pulse Ox 97.9 F 61 20 143/99 H 97 09/24/17 06:00 09/24/17 06:00 09/24/17 06:00 09/24/17 06:00 09/24/17 06:00 Intake and Output: 09/24/17 09/24/17 06:59 18:59 Intake Total 660 Balance 660 - Medications Medications: Current Medications Acetaminophen (Tylenol 325mg Tab) 650 mg PO Q6H PRN PRN Reason: Pain, Mild (1-3) Last Admin: 09/24/17 05:26 Dose: 650 mg Albuterol/Ipratropium (Duoneb 3 Mg/0.5 Mg (3 Ml) Ud) 3 ml IH Q4H PRN PRN Reason: Shortness of Breath Last Admin: 09/24/17 08:23 Dose: 3 ml Artificial Tears (Artificial Tears) 0 ml OU Q1H PRN PRN Reason: Dry eyes Aspirin (Aspirin Chewable) 81 mg PO DAILY [facility] Last Admin: 09/24/17 10:14 Dose: 81 mg Atazanavir (Reyataz) 300 mg PO DAILY [facility] Last Admin: 09/24/17 11:05 Dose: 300 mg Azithromycin (Zithromax) 500 mg PO DAILY [facility] Last Admin: 09/24/17 10:15 Dose: 500 mg Budesonide (Pulmicort Respules) 0.5 mg IH [id number] [facility] Last Admin: 09/24/17 08:22 Dose: 0.5 mg Emtricitabine/Tenofovir (Truvada 200 Mg-300 Mg) 0 tab PO DAILY [facility] PRN Reason: Protocol Last Admin: 09/24/17 11:05 Dose: 1 tab Gabapentin (Neurontin) 100 mg PO TID [facility] PRN Reason: Protocol Heparin Sodium (Porcine) (Heparin) 5,000 units SC Q8 [facility] PRN Reason: Protocol Last Admin: 09/24/17 05:22 Dose: 5,000 units Insulin Human Regular (Humulin R Low) 0 units SC ACHS [facility] PRN Reason: Protocol Last Admin: 09/24/17 11:38 Dose: 1 units Losartan Potassium (Cozaar) 50 mg PO DAILY [facility] Methadone HCl (Methadone) 100 mg PO DAILY [facility] Last Admin: 09/24/17 11:04 Dose: 100 mg Pantoprazole Sodium (Protonix Ec Tab) 40 mg PO ACB [facility] Last Admin: 09/24/17 08:08 Dose: 40 mg Prednisone (Prednisone Tab) 20 mg PO DAILY [facility] Last Admin: 09/24/17 10:15 Dose: 20 mg Ritonavir (Norvir) 100 mg PO DAILY [facility] PRN Reason: Protocol Last Admin: 09/24/17 11:05 Dose: 100 mg - Labs Labs: 09/24/17 07:00 09/24/17 07:00 PT 13.0 SECONDS (9.4-12.5) H 09/22/17 16:00 INR 1.14 (0.93-1.08) H 09/22/17 16:00 APTT 26.3 Seconds (25.1-36.5) 09/22/17 16:00 - Additional Findings Additional findings: - Additional Findings Additional findings: - Constitutional Appears: Non-toxic, No Acute Distress - Head Exam Head Exam: ATRAUMATIC, NORMOCEPHALIC - Eye Exam Eye Exam: EOMI, Normal appearance - ENT Exam ENT Exam: Mucous Membranes Moist, Normal Oropharynx - Neck Exam Neck Exam: Normal Inspection - Respiratory Exam Respiratory Exam: Clear to Ausculation Bilateral, NORMAL BREATHING PATTERN. absent: Accessory Muscle Use - Cardiovascular Exam Cardiovascular Exam: RRR, +S1, +S2 - GI/Abdominal Exam GI & Abdominal Exam: Soft, Normal Bowel Sounds. absent: Guarding - Extremities Exam Extremities Exam: Normal Inspection. absent: Calf Tenderness - Neurological Exam Neurological Exam: Alert, Awake, Oriented x3 - Psychiatric Exam Psychiatric exam: Normal Affect, Normal Mood - Skin Skin Exam: Dry, Intact, Normal Color, Warm Assessment and Plan - Assessment and Plan (Free Text) Assessment: 57 year old female with a past medical history of HIV, COPD, OHS, who was presented with muscle spasms, weakness, and was found to have Acute Kidney Injury, Hyperkalemia, respiratory acidosis with metabolic component, and possible pneumonia. Patient got trialysis catheter in the groin for urgent HD and levophed for hypotension. Pateint's hypercapnia and acidosis was treated with BIPAP/CPAP, bicarbonate drip, and HD. COPD and pneumonia being treated with IV ceftriaxone, azithromycin, budesonide. Patient's hyperkalemia is being treated with intermittent Kayexelate and albuterol. Patient DM II is being managed with regular insulin ISS . Patient Methadone has been resumed and will administer as 20% day 1, 50% day 2, and 100% by day 3, unless patient decompensates into respiratory distress. Patient underwent one session of HD with significant improvement in GFR and is maintaining good urine output. Patient's CD4 count is 305 and most recent Cr was 1.0. Infectious disease is following. Patient was taking Truvada and Reyatz as an outpatient. Patient is As of 09/21/17, patient has been transferred out of ICU to telemetry for further observation. Patient is on Renal diet. Continue to follow ID, Nephrology consultations. Plan: 1) Respiratory acidosis with concomitant metabolic acidosis and hyperkalemia - Bicarbonate drip discontinued - Levophed drip discontinued - Continue CPAP/BIPAP prn - Supplemental O2 as needed - Duonebs q4H prn 2) Acute Kidney Injury (resolved) - Per Nephro, patient no longer needs hemodialysis - HD catheter removed 09/22/17 - Renal US: No evidence of obstructive uropathy, poorly perfused right kidney with commensurate decrease in renal function - Avoid nephrotoxins - Nephrology following, f/u recommendations 3) DM II with neuropathy - Insulin regular sliding scale - Gabapentin 100mg PO TID - Accuchecks ACHS 4) Possible Infection, pneumonia - Antibiotics: Azithromycin 500mg PO daily - Duonebs q4H prn 5) HIV - ID following, appreciate recommendations - CD4 count 305 - HAART: patient was on Truvada, Reyatz, Ritonavir 100mg PO daily - Continue HIV medications 6) COPD with obesity hypoventilation syndrome - Prednisone 40mg PO today - BIPAP/CPAP as needed - Pulmonology/Critical Care following 7) Opiod dependency - Increased Methadone 100mg PO today 8) Onychomycosis - Podiatry consulted, help appreciated 9) Hypomagnesemia -Mg 1.5 today, repleted -Continue to monitor electrolytes DVT/GI prophylaxis - Heparin 5,000 U q12h - Protonix 40mg PO daily Plan discussed with Dr Cota
--- NOTE | 2017-09-24 14:33 | CP.PCM.DIS ---
<Angelita Villalta - Last Filed: 09/24/17 17:10> Provider - Provider Date of Admission: 09/18/17 21:20 Attending physician: Vinicio Cota MD Primary care physician: NO PRIMARY CARE PROVIDER Consults: Hattiero: Jam ID: Go ICU: Mil[facility] Time Spent in preparation of Discharge (in minutes): 35 Hospital Course - Lab Results Lab Results: Micro Results 09/20/17 01:25 Nose MRSA Culture (Admit) - Final MRSA NOT DETECTED Most Recent Lab Values WBC 9.6 10^3/ul (4.5-11.0) 09/24/17 07:00 RBC 3.44 10^6/uL (3.5-6.1) L 09/24/17 07:00 Hgb 9.5 g/dL (12.0-16.0) L 09/24/17 07:00 Hct 31.4 % (36.0-48.0) L 09/24/17 07:00 MCV 91.3 fl (80.0-105.0) 09/24/17 07:00 MCH 27.6 pg (25.0-35.0) 09/24/17 07:00 MCHC 30.3 g/dl (31.0-37.0) L 09/24/17 07:00 RDW 15.3 % (11.5-14.5) H 09/24/17 07:00 Plt Count 172 10^3/uL (120.0-450.0) 09/24/17 07:00 MPV 9.9 fl (7.0-11.0) 09/24/17 07:00 Gran % 57.9 % (50.0-68.0) 09/24/17 07:00 Lymph % (Auto) 32.2 % (22.0-35.0) 09/24/17 07:00 [place] % (Auto) 7.7 % (1.0-6.0) H 09/24/17 07:00 Eos % (Auto) 2.0 % (1.5-5.0) 09/24/17 07:00 Baso % (Auto) 0.2 % (0.0-3.0) 09/24/17 07:00 Gran # 5.59 (1.4-6.5) 09/24/17 07:00 Lymph # (Auto) 3.1 (1.2-3.4) 09/24/17 07:00 [place] # (Auto) 0.7 (0.1-0.6) H 09/24/17 07:00 Eos # (Auto) 0.2 (0.0-0.7) 09/24/17 07:00 Baso # (Auto) 0.02 K/mm3 (0.0-2.0) 09/24/17 07:00 PT 13.0 SECONDS (9.4-12.5) H 09/22/17 16:00 INR 1.14 (0.93-1.08) H 09/22/17 16:00 APTT 26.3 Seconds (25.1-36.5) 09/22/17 16:00 pCO2 57 mm/Hg (35-45) H 09/21/17 05:00 pO2 80.0 mm/Hg (80-100) 09/21/17 05:00 HCO3 33.0 mmol/L (21-28) H 09/21/17 05:00 ABG pH 7.37 (7.35-7.45) 09/21/17 05:00 ABG Total CO2 34.7 mmol.L (22-28) H 09/21/17 05:00 ABG O2 Saturation 97.1 % (95-98) 09/21/17 05:00 ABG O2 Content 13.8 ML/dl (15-23) L 09/21/17 05:00 ABG Base Excess 6.5 mmol/L (-2.0-3.0) H 09/21/17 05:00 ABG Hemoglobin 10.2 g/dL (11.7-17.4) L 09/21/17 05:00 ABG Carboxyhemoglobin 1.2 % (0.5-1.5) 09/21/17 05:00 POC ABG HHb (Measured) 2.9 % (0-5) 09/21/17 05:00 ABG Methemoglobin 0.3 % (0.0-3.0) 09/21/17 05:00 ABG O2 Capacity 14.2 mL/dl (16-24) L 09/21/17 05:00 ABG Potassium 5.4 mmol/L (3.6-5.2) H 09/19/17 14:23 VBG pH 7.22 (7.32-7.43) L 09/20/17 01:00 VBG pCO2 60.0 (40-60) 09/20/17 01:00 VBG HCO3 24.6 mmol/l (21-28) 09/20/17 01:00 VBG Total CO2 26.4 mmol.L (22-28) 09/20/17 01:00 VBG O2 Sat (Calc) 88.5 % (40-65) H 09/20/17 01:00 VBG Base Excess -4.1 mmol/L (0.0-2.0) L 09/20/17 01:00 VBG Potassium 5.3 mmol/L (3.6-5.2) H 09/20/17 01:00 Hgb O2 Saturation 95.6 % (95.0-98.0) 09/21/17 05:00 Sodium 138.0 mmol/L (132-148) 09/20/17 01:00 Chloride 106.0 mmol/L (98-107) 09/20/17 01:00 Glucose 92 mg/dl (65-105) 09/20/17 01:00 Lactate 0.6 mmol/L (0.7-2.1) L 09/20/17 01:00 FiO2 40.0 % 09/21/17 05:00 Sodium 141 mmol/L (132-148) 09/24/17 07:00 Potassium 4.5 mmol/L (3.6-5.0) 09/24/17 07:00 Chloride 103 mmol/L (98-107) 09/24/17 07:00 Carbon Dioxide 32 mmol/L (21-33) 09/24/17 07:00 Anion Gap 10 (10-20) 09/24/17 07:00 BUN 24 mg/dL (7-21) H 09/24/17 07:00 Creatinine 0.8 mg/dl (0.7-1.2) 09/24/17 07:00 Est GFR ( Amer) > 60 09/24/17 07:00 Est GFR (Non-Af Amer) > 60 09/24/17 07:00 POC Glucose (mg/dL) 98 mg/dL (65-110) 09/24/17 06:58 Random Glucose 107 mg/dL (70-110) 09/24/17 07:00 Calcium 9.5 mg/dL (8.4-10.5) 09/24/17 07:00 Phosphorus 3.8 mg/dL (2.5-4.5) 09/24/17 07:00 Magnesium 1.5 mg/dL (1.7-2.2) L 09/24/17 07:00 Iron 22 ug/dL (45-180) L 09/20/17 12:16 TIBC 240 ug/dL (265-497) L 09/20/17 12:16 % Saturation 9 % (20-55) L 09/20/17 12:16 Ferritin 74.6 ng/mL 09/20/17 12:16 Total Bilirubin 0.4 mg/dL (0.2-1.3) 09/24/17 07:00 AST 55 U/L (14-36) H 09/24/17 07:00 ALT 63 U/L (7-56) H 09/24/17 07:00 Alkaline Phosphatase 52 U/L (38-126) 09/24/17 07:00 Total Creatine Kinase 147 U/L (35-230) 09/19/17 09:57 Total Protein 7.6 g/dL (5.8-8.3) 09/24/17 07:00 Albumin 3.3 g/dL (3.0-4.8) 09/24/17 07:00 Globulin 4.3 gm/dL 09/24/17 07:00 Albumin/Globulin Ratio 0.8 (1.1-1.8) L 09/24/17 07:00 Lipase 48 U/L (23-300) 09/18/17 19:00 Procalcitonin 0.21 NG/ML (0.19-0.49) 09/20/17 01:00 TSH 3rd Generation 1.55 mIU/mL (0.46-4.68) 09/18/17 19:00 PTH Intact Whole Molec 301 pg/mL (14-64) H 09/20/17 12:16 Arterial Blood Potassium 5.4 mmol/L (3.6-5.2) H 09/19/17 14:23 Venous Blood Potassium 5.3 mmol/L (3.6-5.2) H 09/20/17 01:00 Urine Color Yellow (YELLOW) 09/20/17 10:34 Urine Appearance Clear (CLEAR) 09/20/17 10:34 Urine pH 6.0 (4.7-8.0) 09/20/17 10:34 Ur Specific [place] >= 1.030 (1.005-1.035) 09/20/17 10:34 Urine Protein 30 mg/dL (<30 mg/dL) H 09/20/17 10:34 Urine Glucose (UA) Negative mg/dL (NEGATIVE) 09/20/17 10:34 Urine Ketones Negative mg/dL (NEGATIVE) 09/20/17 10:34 Urine Blood Large (NEGATIVE) H 09/20/17 10:34 Urine Nitrate Negative (NEGATIVE) 09/20/17 10:34 Urine Bilirubin Negative (NEGATIVE) 09/20/17 10:34 Urine Urobilinogen 0.2 E.U./dL (<1 E.U./dL) 09/20/17 10:34 Ur Leukocyte Esterase Negative Devyn/uL (NEGATIVE) 09/20/17 10:34 Urine RBC 20 - 25 /hpf (0-2) 09/20/17 10:34 Urine WBC 1 - 3 /hpf (0-6) 09/20/17 10:34 Ur Epithelial Cells 4 - 5 /hpf (0-5) 09/20/17 10:34 Amorphous Sediment Few 09/20/17 10:34 Urine Bacteria Many (NEG) 09/20/17 10:34 Hyaline Casts 0 - 2 /hpf 09/19/17 09:00 Coarse Granular Casts Trace /hpf (0-2) H 09/20/17 10:34 Urine Other Fiber 09/20/17 10:34 Urine Eosinophils Negative 09/19/17 10:00 Ur Random Creatinine 195 mg/dL 09/19/17 09:00 Ur Random Sodium 30 meq/L 09/19/17 09:00 Ur Random Potassium 64.3 meq/L 09/19/17 09:00 Urine Opiates Screen Negative (NEGATIVE) 09/20/17 10:34 Urine Methadone Screen Positive (NEGATIVE) H 09/20/17 10:34 Ur Barbiturates Screen Negative (NEGATIVE) 09/20/17 10:34 Ur Phencyclidine Scrn Negative (NEGATIVE) 09/20/17 10:34 Ur Amphetamines Screen Negative (NEGATIVE) 09/20/17 10:34 U Benzodiazepines Scrn Negative (NEGATIVE) 09/20/17 10:34 U Oth Cocaine Metabols Negative (NEGATIVE) 09/20/17 10:34 U Cannabinoids Screen Negative (NEGATIVE) 09/20/17 10:34 Aluminum <2 mcg/L (<7) 09/20/17 12:16 Absolute Lymphs (Flow) 1337 Cells/mcL (850-3900) 09/19/17 06:30 % CD4 Cells 23 Percent (30-61) L 09/19/17 06:30 Absolute CD4 Count 305 Cells/mcL (490-1740) L 09/19/17 06:30 T-Help/Suppress Ratio 0.61 Ratio (0.86-5.00) L 09/19/17 06:30 % CD8 Cells 38 Percent (12-42) 09/19/17 06:30 Absolute CD8 Count 502 Cells/mcL (180-1170) 09/19/17 06:30 Hepatitis A IgM Ab Negative (NEGATIVE) 09/20/17 12:16 Hep Bs Antigen Negative (NEGATIVE) 09/20/17 12:16 Hep B Core IgM Ab Negative (NEGATIVE) 09/20/17 12:16 Hepatitis C Antibody Negative (NEGATIVE) 09/20/17 12:16 HIV-1 RNA Qnt (RT-PCR) 3.40 (Not Detected) H 09/19/17 06:30 Blood Type A POSITIVE 09/22/17 16:33 Blood Type Confirm A POSITIVE 09/22/17 16:56 Antibody Screen Negative 09/22/17 16:33 BBK History Checked No verified bt 09/22/17 16:33 - Hospital Course Hospital Course: History of Present Illness: Patient is a 57 yo F with PMH of DM, HTN, OA of b/l knees, HIV, COPD, and osteoporosis presents to [facility] [place] due to a 1 week history of weakness, cold like symptoms, and b/l LE pain. Pt complains of cough that is productive with green sputum, shortness of breath, and sinus congestion. Pt denies any recent travel or sick contacts. Pt states that she has had recurrent pneumonias in the past, the most recent being 1 year ago. [place] [facility] [place] came [place] [facility] [place] as she recently moved to [place]. Pt is currently on HAART therapy for HIV. Last , CD4 and viral load was obtained about 1 year and was 1 and 862, respectively. Pt is unsure of her medications at this time. Pt states that she does not follow up with an infectious disease physician, however does get refill prescriptions from [facility]. Pt states that she was shopping for food earlier today, when she feel on her knees. Since then patient is complaining of b/l knee pain, as well as diffuse LE pain to touch. Pt states that left knee is difficult to keep straight for long periods due to pain. Pt states that with her history of OA there is always some pain, but much more after fall. Pt denies CP, n/v/d, abdominal pain, fever, chills, CROSS, or dizziness. Hospital Course: Patient was admitted to the ICU on admission. Patient presented with Acute Renal Failure, Creatinine of 7.5, hyperkalemia. Patient also presented in respiratory acidosis with metabolic component likely secondary to obesity hyperventilation syndrome. Hypercapnia and acidosis was treated with BIPAP/CPAP , bicarbonate drip. Levophed was started for hypotension. Nephrology was consulted. Patient had a HD catheter placed urgently and patient had one session of Hemodialysis. CT chest showed band consolidation within the right lower lobe, likely representing atelectatic change or infiltrate. Patchy areas of atelectatic change and nonspecific groundglass density. 5 mm nodule in right lower lobe. Mediastinal and bilateral axillary lymphadenopathy. Patient was started on Rocephin and Azithromax, IV Solumedrol for possible pneumonia and COPD exacerbation. After HD, Renal function normalized and returned to baseline afterwards. Patient maintained adequate urine output. Bicarb drip and levophed were discontinued. Renal scan showed poorly perfused right kidney with commensurate decrease in renal function, no evidence of obstructive uropathy. HD catheter was removed. Rapid Response was called 09/22/17 for bleeding from site where catheter was removed. Hgb remained stable. Hemostasis was achieved. Patient is on Methadone outpatient. Methadone was restarted at a low dose and was gradually titrated up to her home dose. Patient was also restarted on HIV medications. Viral load and CD4 count 305. While on the Med/Surg floor patient reported feeling dizzy. This was thought to be due to medications. Gabapentin dosage was decreased with improvement in symptoms. Solumedrol switched to PO prednisone. Patient was evaluated by physical therapy who recommended DELFIN, however this is not covered by insurance. Patient does have home health aid, prescriptions for new cane, commode, and shower chair with outpatient physical therapy given. Patient also referred to [employer]. Patient medically clear for discharge home. For 5mm nodule in right lower lobe, patient will need repeat CT chest for follow up in 6-12 months. Advised to follow up with PMD within 1-2 weeks. All medication prescriptions sent to pharmacy. Discharge Exam - Additional Findings Additional findings: - Additional Findings Additional findings: - Constitutional Appears: Non-toxic, No Acute Distress - Head Exam Head Exam: ATRAUMATIC, NORMOCEPHALIC - Eye Exam Eye Exam: EOMI, Normal appearance - ENT Exam ENT Exam: Mucous Membranes Moist, Normal Oropharynx - Neck Exam Neck Exam: Normal Inspection - Respiratory Exam Respiratory Exam: Clear to Ausculation Bilateral, NORMAL BREATHING PATTERN. absent: Accessory Muscle Use - Cardiovascular Exam Cardiovascular Exam: RRR, +S1, +S2 - GI/Abdominal Exam GI & Abdominal Exam: Soft, Normal Bowel Sounds. absent: Guarding - Extremities Exam Extremities Exam: Normal Inspection. absent: Calf Tenderness - Neurological Exam Neurological Exam: Alert, Awake, Oriented x3 - Psychiatric Exam Psychiatric exam: Normal Affect, Normal Mood - Skin Skin Exam: Dry, Intact, Normal Color, Warm Discharge Plan - Discharge Medications Prescriptions: Aspirin [Aspirin Chewable] 1 tab PO DAILY #30 chew Azithromycin [Zithromax] 250 mg PO DAILY #3 tab Gabapentin [Neurontin] 100 mg PO TID #90 cap Losartan [Cozaar] 50 mg PO DAILY #30 tab predniSONE [predniSONE Tab] See Taper PO DAILY #6 tab - Follow Up Plan Condition: FAIR Disposition: HOME/ ROUTINE Instructions: Pneumonia in Adults, Type 2 Diabetes, Quitting Smoking for Older Adults, Acute Kidney Failure, Kidney Failure (DC), Drug Abuse and Drug Addiction (DC), Methadone, Drug Abuse Treatment Additional Instructions: 1. Patient to continue medications as prescribed 2. Please obtain non contrast chest CT in 6-12 months for lung nodule follow up 3. Please follow up with PMD within 1-2 weeks Referrals: PCP,GWYN [Primary Care Provider] - <Vinicio Cota - Last Filed: 09/25/17 08:47> Provider - Provider Date of Admission: 09/18/17 21:20 Attending physician: Vinicio Cota MD Primary care physician: NO PRIMARY CARE PROVIDER Hospital Course - Lab Results Lab Results: Micro Results 09/20/17 01:25 Nose MRSA Culture (Admit) - Final MRSA NOT DETECTED Most Recent Lab Values WBC 9.6 10^3/ul (4.5-11.0) 09/24/17 07:00 RBC 3.44 10^6/uL (3.5-6.1) L 09/24/17 07:00 Hgb 9.5 g/dL (12.0-16.0) L 09/24/17 07:00 Hct 31.4 % (36.0-48.0) L 09/24/17 07:00 MCV 91.3 fl (80.0-105.0) 09/24/17 07:00 MCH 27.6 pg (25.0-35.0) 09/24/17 07:00 MCHC 30.3 g/dl (31.0-37.0) L 09/24/17 07:00 RDW 15.3 % (11.5-14.5) H 09/24/17 07:00 Plt Count 172 10^3/uL (120.0-450.0) 09/24/17 07:00 MPV 9.9 fl (7.0-11.0) 09/24/17 07:00 Gran % 57.9 % (50.0-68.0) 09/24/17 07:00 Lymph % (Auto) 32.2 % (22.0-35.0) 09/24/17 07:00 [place] % (Auto) 7.7 % (1.0-6.0) H 09/24/17 07:00 Eos % (Auto) 2.0 % (1.5-5.0) 09/24/17 07:00 Baso % (Auto) 0.2 % (0.0-3.0) 09/24/17 07:00 Gran # 5.59 (1.4-6.5) 09/24/17 07:00 Lymph # (Auto) 3.1 (1.2-3.4) 09/24/17 07:00 [place] # (Auto) 0.7 (0.1-0.6) H 09/24/17 07:00 Eos # (Auto) 0.2 (0.0-0.7) 09/24/17 07:00 Baso # (Auto) 0.02 K/mm3 (0.0-2.0) 09/24/17 07:00 PT 13.0 SECONDS (9.4-12.5) H 09/22/17 16:00 INR 1.14 (0.93-1.08) H 09/22/17 16:00 APTT 26.3 Seconds (25.1-36.5) 09/22/17 16:00 pCO2 57 mm/Hg (35-45) H 09/21/17 05:00 pO2 80.0 mm/Hg (80-100) 09/21/17 05:00 HCO3 33.0 mmol/L (21-28) H 09/21/17 05:00 ABG pH 7.37 (7.35-7.45) 09/21/17 05:00 ABG Total CO2 34.7 mmol.L (22-28) H 09/21/17 05:00 ABG O2 Saturation 97.1 % (95-98) 09/21/17 05:00 ABG O2 Content 13.8 ML/dl (15-23) L 09/21/17 05:00 ABG Base Excess 6.5 mmol/L (-2.0-3.0) H 09/21/17 05:00 ABG Hemoglobin 10.2 g/dL (11.7-17.4) L 09/21/17 05:00 ABG Carboxyhemoglobin 1.2 % (0.5-1.5) 09/21/17 05:00 POC ABG HHb (Measured) 2.9 % (0-5) 09/21/17 05:00 ABG Methemoglobin 0.3 % (0.0-3.0) 09/21/17 05:00 ABG O2 Capacity 14.2 mL/dl (16-24) L 09/21/17 05:00 ABG Potassium 5.4 mmol/L (3.6-5.2) H 09/19/17 14:23 VBG pH 7.22 (7.32-7.43) L 09/20/17 01:00 VBG pCO2 60.0 (40-60) 09/20/17 01:00 VBG HCO3 24.6 mmol/l (21-28) 09/20/17 01:00 VBG Total CO2 26.4 mmol.L (22-28) 09/20/17 01:00 VBG O2 Sat (Calc) 88.5 % (40-65) H 09/20/17 01:00 VBG Base Excess -4.1 mmol/L (0.0-2.0) L 09/20/17 01:00 VBG Potassium 5.3 mmol/L (3.6-5.2) H 09/20/17 01:00 Hgb O2 Saturation 95.6 % (95.0-98.0) 09/21/17 05:00 Sodium 138.0 mmol/L (132-148) 09/20/17 01:00 Chloride 106.0 mmol/L (98-107) 09/20/17 01:00 Glucose 92 mg/dl (65-105) 09/20/17 01:00 Lactate 0.6 mmol/L (0.7-2.1) L 09/20/17 01:00 FiO2 40.0 % 09/21/17 05:00 Sodium 141 mmol/L (132-148) 09/24/17 07:00 Potassium 4.5 mmol/L (3.6-5.0) 09/24/17 07:00 Chloride 103 mmol/L (98-107) 09/24/17 07:00 Carbon Dioxide 32 mmol/L (21-33) 09/24/17 07:00 Anion Gap 10 (10-20) 09/24/17 07:00 BUN 24 mg/dL (7-21) H 09/24/17 07:00 Creatinine 0.8 mg/dl (0.7-1.2) 09/24/17 07:00 Est GFR ( Amer) > 60 09/24/17 07:00 Est GFR (Non-Af Amer) > 60 09/24/17 07:00 POC Glucose (mg/dL) 152 mg/dL (65-110) H 09/24/17 16:06 Random Glucose 107 mg/dL (70-110) 09/24/17 07:00 Calcium 9.5 mg/dL (8.4-10.5) 09/24/17 07:00 Phosphorus 3.8 mg/dL (2.5-4.5) 09/24/17 07:00 Magnesium 1.5 mg/dL (1.7-2.2) L 09/24/17 07:00 Iron 22 ug/dL (45-180) L 09/20/17 12:16 TIBC 240 ug/dL (265-497) L 09/20/17 12:16 % Saturation 9 % (20-55) L 09/20/17 12:16 Ferritin 74.6 ng/mL 09/20/17 12:16 Total Bilirubin 0.4 mg/dL (0.2-1.3) 09/24/17 07:00 AST 55 U/L (14-36) H 09/24/17 07:00 ALT 63 U/L (7-56) H 09/24/17 07:00 Alkaline Phosphatase 52 U/L (38-126) 09/24/17 07:00 Total Creatine Kinase 147 U/L (35-230) 09/19/17 09:57 Total Protein 7.6 g/dL (5.8-8.3) 09/24/17 07:00 Albumin 3.3 g/dL (3.0-4.8) 09/24/17 07:00 Globulin 4.3 gm/dL 09/24/17 07:00 Albumin/Globulin Ratio 0.8 (1.1-1.8) L 09/24/17 07:00 Lipase 48 U/L (23-300) 09/18/17 19:00 Procalcitonin 0.21 NG/ML (0.19-0.49) 09/20/17 01:00 TSH 3rd Generation 1.55 mIU/mL (0.46-4.68) 09/18/17 19:00 PTH Intact Whole Molec 301 pg/mL (14-64) H 09/20/17 12:16 Arterial Blood Potassium 5.4 mmol/L (3.6-5.2) H 09/19/17 14:23 Venous Blood Potassium 5.3 mmol/L (3.6-5.2) H 09/20/17 01:00 Urine Color Yellow (YELLOW) 09/20/17 10:34 Urine Appearance Clear (CLEAR) 09/20/17 10:34 Urine pH 6.0 (4.7-8.0) 09/20/17 10:34 Ur Specific [place] >= 1.030 (1.005-1.035) 09/20/17 10:34 Urine Protein 30 mg/dL (<30 mg/dL) H 09/20/17 10:34 Urine Glucose (UA) Negative mg/dL (NEGATIVE) 09/20/17 10:34 Urine Ketones Negative mg/dL (NEGATIVE) 09/20/17 10:34 Urine Blood Large (NEGATIVE) H 09/20/17 10:34 Urine Nitrate Negative (NEGATIVE) 09/20/17 10:34 Urine Bilirubin Negative (NEGATIVE) 09/20/17 10:34 Urine Urobilinogen 0.2 E.U./dL (<1 E.U./dL) 09/20/17 10:34 Ur Leukocyte Esterase Negative Devyn/uL (NEGATIVE) 09/20/17 10:34 Urine RBC 20 - 25 /hpf (0-2) 09/20/17 10:34 Urine WBC 1 - 3 /hpf (0-6) 09/20/17 10:34 Ur Epithelial Cells 4 - 5 /hpf (0-5) 09/20/17 10:34 Amorphous Sediment Few 09/20/17 10:34 Urine Bacteria Many (NEG) 09/20/17 10:34 Hyaline Casts 0 - 2 /hpf 09/19/17 09:00 Coarse Granular Casts Trace /hpf (0-2) H 09/20/17 10:34 Urine Other Fiber 09/20/17 10:34 Urine Eosinophils Negative 09/19/17 10:00 Ur Random Creatinine 195 mg/dL 09/19/17 09:00 Ur Random Sodium 30 meq/L 09/19/17 09:00 Ur Random Potassium 64.3 meq/L 09/19/17 09:00 Urine Opiates Screen Negative (NEGATIVE) 09/20/17 10:34 Urine Methadone Screen Positive (NEGATIVE) H 09/20/17 10:34 Ur Barbiturates Screen Negative (NEGATIVE) 09/20/17 10:34 Ur Phencyclidine Scrn Negative (NEGATIVE) 09/20/17 10:34 Ur Amphetamines Screen Negative (NEGATIVE) 09/20/17 10:34 U Benzodiazepines Scrn Negative (NEGATIVE) 09/20/17 10:34 U Oth Cocaine Metabols Negative (NEGATIVE) 09/20/17 10:34 U Cannabinoids Screen Negative (NEGATIVE) 09/20/17 10:34 Aluminum <2 mcg/L (<7) 09/20/17 12:16 Absolute Lymphs (Flow) 1337 Cells/mcL (850-3900) 09/19/17 06:30 % CD4 Cells 23 Percent (30-61) L 09/19/17 06:30 Absolute CD4 Count 305 Cells/mcL (490-1740) L 09/19/17 06:30 T-Help/Suppress Ratio 0.61 Ratio (0.86-5.00) L 09/19/17 06:30 % CD8 Cells 38 Percent (12-42) 09/19/17 06:30 Absolute CD8 Count 502 Cells/mcL (180-1170) 09/19/17 06:30 Hepatitis A IgM Ab Negative (NEGATIVE) 09/20/17 12:16 Hep Bs Antigen Negative (NEGATIVE) 09/20/17 12:16 Hep B Core IgM Ab Negative (NEGATIVE) 09/20/17 12:16 Hepatitis C Antibody Negative (NEGATIVE) 09/20/17 12:16 HIV-1 RNA Qnt (RT-PCR) 3.40 (Not Detected) H 09/19/17 06:30 Blood Type A POSITIVE 09/22/17 16:33 Blood Type Confirm A POSITIVE 09/22/17 16:56 Antibody Screen Negative 09/22/17 16:33 BBK History Checked No verified bt 09/22/17 16:33 Attending/Attestation - Attestation I have personally seen and examined this patient.: Yes I have fully participated in the care of the patient.: Yes I have reviewed all pertinent clinical information, including history, physical exam and plan: Yes Notes (Text): 09/24/17 57 year old female of HIV, COPD, on chronic methadone who presented with weakness and muscle spasms. She was found to have acute renal failure and metabolic/respiratory acidosis which improved with dialysis and iv bicarb. Renal failure and acidosis has resolved. She was on tapering steroids and antibiotics. She was counselled on weight loss and diet modifications for obesity. She is on gabapentin for diabetic neuropathy. She was counselled to take as prescribed and not exceed the recommended doses. She was seen by PT who initially recommended DELFIN however it was denied authorization by insurance as she has home health aid services. Patient is discharged home with services. Follow up with pmd. Counselled on medication compliance. Counselled on weight loss and diet modifications. Vinicio Cota MD Hospitalist.
[2017-09-24 15:01] VITALS: BP 146/96; PULSE 70; TEMP 98.5
--- NOTE | 2017-09-24 15:13 | CP.PCM.PN ---
Subjective - Date & Time of Evaluation Date of Evaluation: 09/24/17 Time of Evaluation: 13:45 - Subjective Subjective: Infectious Disease Follow Up: September 24, 2017 57 yo female with PMH of DM, HTN, OA of b/l knees, HIV, COPD, and osteoporosis presents to [facility] due to a 1 week history of weakness, cold like symptoms, and b/ l LE pain. Pt complains of cough that is productive with green sputum, shortness of breath, and sinus congestion. She states that she receives her HIV medication scripts from the [facility]. Found to have respiratory acidosis and metabolic alkalosis on ABG. Shiley cath placed for HD. Transferred to MICU for further care. Mild leukocytosis noted. Patient remains just overly concerned about eating over anything else. She has been transferred back to the medical floor. Improvement to respiratory acidosis and metabolic alkalosis. Had Rapid Response for bleeding at Shiley catheter site. She is awaiting placement. Objective - Vital Signs/Intake and Output Vital Signs (last 24 hours): Temp Pulse Resp BP Pulse Ox 98.5 F 70 20 146/96 H 97 09/24/17 14:00 09/24/17 14:00 09/24/17 14:00 09/24/17 14:00 09/24/17 14:00 Intake and Output: 09/24/17 09/24/17 06:59 18:59 Intake Total 660 1680 Balance 660 1680 - Medications Medications: Current Medications Acetaminophen (Tylenol 325mg Tab) 650 mg PO Q6H PRN PRN Reason: Pain, Mild (1-3) Last Admin: 09/24/17 05:26 Dose: 650 mg Albuterol/Ipratropium (Duoneb 3 Mg/0.5 Mg (3 Ml) Ud) 3 ml IH Q4H PRN PRN Reason: Shortness of Breath Last Admin: 09/24/17 08:23 Dose: 3 ml Artificial Tears (Artificial Tears) 0 ml OU Q1H PRN PRN Reason: Dry eyes Aspirin (Aspirin Chewable) 81 mg PO DAILY [facility] Last Admin: 09/24/17 10:14 Dose: 81 mg Atazanavir (Reyataz) 300 mg PO DAILY [facility] Last Admin: 09/24/17 11:05 Dose: 300 mg Azithromycin (Zithromax) 500 mg PO DAILY [facility] Last Admin: 09/24/17 10:15 Dose: 500 mg Budesonide (Pulmicort Respules) 0.5 mg IH [id number] [facility] Last Admin: 09/24/17 08:22 Dose: 0.5 mg Emtricitabine/Tenofovir (Truvada 200 Mg-300 Mg) 0 tab PO DAILY [facility] PRN Reason: Protocol Last Admin: 09/24/17 11:05 Dose: 1 tab Gabapentin (Neurontin) 100 mg PO TID [facility] PRN Reason: Protocol Last Admin: 09/24/17 14:09 Dose: 100 mg Heparin Sodium (Porcine) (Heparin) 5,000 units SC Q8 [facility] PRN Reason: Protocol Last Admin: 09/24/17 14:09 Dose: 5,000 units Insulin Human Regular (Humulin R Low) 0 units SC ACHS [facility] PRN Reason: Protocol Last Admin: 09/24/17 11:38 Dose: 1 units Losartan Potassium (Cozaar) 50 mg PO DAILY [facility] Methadone HCl (Methadone) 100 mg PO DAILY [facility] Last Admin: 09/24/17 11:04 Dose: 100 mg Pantoprazole Sodium (Protonix Ec Tab) 40 mg PO ACB [facility] Last Admin: 09/24/17 08:08 Dose: 40 mg Prednisone (Prednisone Tab) 20 mg PO DAILY [facility] Last Admin: 09/24/17 10:15 Dose: 20 mg Ritonavir (Norvir) 100 mg PO DAILY [facility] PRN Reason: Protocol Last Admin: 09/24/17 11:05 Dose: 100 mg - Labs Labs: 09/24/17 07:00 09/24/17 07:00 PT 13.0 SECONDS (9.4-12.5) H 09/22/17 16:00 INR 1.14 (0.93-1.08) H 09/22/17 16:00 APTT 26.3 Seconds (25.1-36.5) 09/22/17 16:00 - Constitutional Appears: Non-toxic, No Acute Distress, Chronically Ill - Head Exam Head Exam: ATRAUMATIC, NORMOCEPHALIC - Eye Exam Eye Exam: EOMI, PERRL Pupil Exam: NORMAL ACCOMODATION, PERRL - ENT Exam ENT Exam: Mucous Membranes Moist, Normal External Ear Exam, TM's Normal Bilaterally - Neck Exam Neck Exam: Full ROM, Normal Inspection - Respiratory Exam Respiratory Exam: Decreased Breath Sounds, NORMAL BREATHING PATTERN. absent: Rales, Rhonchi, Wheezes - Cardiovascular Exam Cardiovascular Exam: REGULAR RHYTHM, RRR, +S1, +S2 - GI/Abdominal Exam GI & Abdominal Exam: Soft, Normal Bowel Sounds. absent: Distended, Tenderness - Extremities Exam Extremities Exam: Full ROM, Normal Inspection - Neurological Exam Neurological Exam: Alert, Awake, CN II-XII Intact, Oriented x3 - Psychiatric Exam Psychiatric exam: Normal Affect, Normal Mood - Skin Skin Exam: Intact, Normal Color Assessment and Plan - Assessment and Plan (Free Text) Assessment: 57 yo female with multiple medical issues including HIV, knee pain, Morbid Obesity, Renal insufficiency, conjunctivitis presenting with cough and SOB for the past week. Possible pneumonia seen in Chest X-ray. Supportive care. Started on Azithromycin and Rocephin for initial antibiotic coverage. Need CD4 and HIV Viral load to be done. Her last CD4 was 862 and Undetectable viral load taken 1 year ago. The patient does not know her HAART regimen. Awaiting CD4 and HIV viral load results. Supportive care. CD4 of 305. HIV Viral load of log 3.4. On Truvada and Reyataz for HAART. Patient awaiting placement. Possible discharge today. Thank you for allowing me to participate in the care of the patient, we will follow with you.
--- NOTE | 2017-09-24 21:11 | CP.PCM.PN ---
Objective - Vital Signs/Intake and Output Vital Signs (last 24 hours): Temp Pulse Resp BP Pulse Ox 98.5 F 70 20 146/96 H 97 09/24/17 14:00 09/24/17 14:00 09/24/17 14:00 09/24/17 14:00 09/24/17 14:00 Intake and Output: 09/24/17 09/25/17 18:59 06:59 Intake Total 1680 Balance 1680 - Medications Medications: Current Medications Acetaminophen (Tylenol 325mg Tab) 650 mg PO Q6H PRN PRN Reason: Pain, Mild (1-3) Last Admin: 09/24/17 05:26 Dose: 650 mg Albuterol/Ipratropium (Duoneb 3 Mg/0.5 Mg (3 Ml) Ud) 3 ml IH Q4H PRN PRN Reason: Shortness of Breath Last Admin: 09/24/17 08:23 Dose: 3 ml Artificial Tears (Artificial Tears) 0 ml OU Q1H PRN PRN Reason: Dry eyes Aspirin (Aspirin Chewable) 81 mg PO DAILY [facility] Last Admin: 09/24/17 10:14 Dose: 81 mg Atazanavir (Reyataz) 300 mg PO DAILY [facility] Last Admin: 09/24/17 11:05 Dose: 300 mg Azithromycin (Zithromax) 500 mg PO DAILY [facility] Last Admin: 09/24/17 10:15 Dose: 500 mg Budesonide (Pulmicort Respules) 0.5 mg IH [id number] [facility] Last Admin: 09/24/17 08:22 Dose: 0.5 mg Emtricitabine/Tenofovir (Truvada 200 Mg-300 Mg) 0 tab PO DAILY [facility] PRN Reason: Protocol Last Admin: 09/24/17 11:05 Dose: 1 tab Gabapentin (Neurontin) 100 mg PO TID [facility] PRN Reason: Protocol Last Admin: 09/24/17 18:14 Dose: 100 mg Heparin Sodium (Porcine) (Heparin) 5,000 units SC Q8 [facility] PRN Reason: Protocol Last Admin: 09/24/17 14:09 Dose: 5,000 units Insulin Human Regular (Humulin R Low) 0 units SC ACHS [facility] PRN Reason: Protocol Last Admin: 09/24/17 16:30 Dose: 1 units Losartan Potassium (Cozaar) 50 mg PO DAILY [facility] Methadone HCl (Methadone) 100 mg PO DAILY [facility] Last Admin: 09/24/17 11:04 Dose: 100 mg Pantoprazole Sodium (Protonix Ec Tab) 40 mg PO ACB [facility] Last Admin: 09/24/17 08:08 Dose: 40 mg Prednisone (Prednisone Tab) 20 mg PO DAILY [facility] Last Admin: 09/24/17 10:15 Dose: 20 mg Ritonavir (Norvir) 100 mg PO DAILY [facility] PRN Reason: Protocol Last Admin: 09/24/17 11:05 Dose: 100 mg - Labs Labs: 09/24/17 07:00 09/24/17 07:00 PT 13.0 SECONDS (9.4-12.5) H 09/22/17 16:00 INR 1.14 (0.93-1.08) H 09/22/17 16:00 APTT 26.3 Seconds (25.1-36.5) 09/22/17 16:00 Assessment and Plan (1) Acute kidney failure Status: Resolved (2) Metabolic alkalosis with respiratory acidosis Status: Acute (3) HTN (hypertension) Status: Chronic (4) Anemia Status: Acute
== END 2017-09-24 22:10 | disposition home or self-care (01) | DRG 710 ==
LOC: ED 17:34 → ERH 21:20 → 5RSO 23:06 → 3RSO 09-19 11:02 → ICU 09-19 20:57 → CCU 09-20 07:56 → 2RNO 09-21 14:12 → 5RSO 09-23 20:53
PROVIDERS: ADMIT Internal Medicine; ATTEND Internal Medicine
PROC: 06HY33Z Insertion of Infusion Device into Lower Vein, Percutaneous Approach (ICD-10-PCS; principal; 2017-09-19)
PROC: 5A09457 Assistance with Respiratory Ventilation, 24-96 Consecutive Hours, Continuous Positive Airway Pressure (ICD-10-PCS; 2017-09-19)
PROC: 3E0F7GC Introduction of Other Therapeutic Substance into Respiratory Tract, Via Natural or Artificial Opening (ICD-10-PCS; 2017-09-19)
PROC: 5A1D70Z Performance of Urinary Filtration, Intermittent, Less than 6 Hours Per Day (ICD-10-PCS; 2017-09-20)
PROC: 0HBRXZZ Excision of Toe Nail, External Approach (ICD-10-PCS; 2017-09-23)
PROC: 0HBRXZZ Excision of Toe Nail, External Approach (ICD-10-PCS; 2017-09-23)
PROC: 0HBRXZZ Excision of Toe Nail, External Approach (ICD-10-PCS; 2017-09-23)
PROC: 0HBRXZZ Excision of Toe Nail, External Approach (ICD-10-PCS; 2017-09-23)
PROC: 0HBRXZZ Excision of Toe Nail, External Approach (ICD-10-PCS; 2017-09-23)
PROC: 0HBRXZZ Excision of Toe Nail, External Approach (ICD-10-PCS; 2017-09-23)
PROC: 0HBRXZZ Excision of Toe Nail, External Approach (ICD-10-PCS; 2017-09-23)
PROC: 0HBRXZZ Excision of Toe Nail, External Approach (ICD-10-PCS; 2017-09-23)
PROC: 0HBRXZZ Excision of Toe Nail, External Approach (ICD-10-PCS; 2017-09-23)
PROC: 0HBRXZZ Excision of Toe Nail, External Approach (ICD-10-PCS; 2017-09-23)
DX: J18.9 Pneumonia, unspecified organism (principal); J96.92 Respiratory failure, unspecified with hypercapnia; Z21 Asymptomatic human immunodeficiency virus [HIV] infection status; N17.0 Acute kidney failure with tubular necrosis; E87.5 Hyperkalemia; E87.4 Mixed disorder of acid-base balance; J44.0 Chronic obstructive pulmonary disease with (acute) lower respiratory infection; E11.42 Type 2 diabetes mellitus with diabetic polyneuropathy; F14.10 Cocaine abuse, uncomplicated; F11.10 Opioid abuse, uncomplicated; E66.2 Morbid (severe) obesity with alveolar hypoventilation; Z68.43 Body mass index [BMI] 50.0-59.9, adult; I10 Essential (primary) hypertension; B35.1 Tinea unguium; D64.9 Anemia, unspecified; M62.838 Other muscle spasm; G47.33 Obstructive sleep apnea (adult) (pediatric); E83.42 Hypomagnesemia; R91.1 Solitary pulmonary nodule; R59.0 Localized enlarged lymph nodes; L85.9 Epidermal thickening, unspecified; H10.9 Unspecified conjunctivitis; M81.0 Age-related osteoporosis without current pathological fracture; M17.0 Bilateral primary osteoarthritis of knee; H91.92 Unspecified hearing loss, left ear; F17.200 Nicotine dependence, unspecified, uncomplicated; Z79.899 Other long term (current) drug therapy; Z79.82 Long term (current) use of aspirin; Z79.4 Long term (current) use of insulin; Z87.01 Personal history of pneumonia (recurrent)

== ENCOUNTER 2017-10-30 18:30 | Inpatient (IN) | payer MEDICAID ==
[2017-10-30 18:46] VITALS: BMI 55.7
[2017-10-30] MEDS ORDERED: Albuterol-Ipratrop 3 mg / 0.5 (3 ml) UD IH STA (19:21)
[2017-10-30] MEDS ORDERED: Albuterol-Ipratrop 3 mg / 0.5 (3 ml) UD ONE (19:25)
--- NOTE | 2017-10-30 19:35 | ED PDOC ---
Arrival/HPI - General Chief Complaint: Shortness Of Breath Time Seen by Provider: 10/30/17 19:07 Historian: Patient - History of Present Illness Narrative History of Present Illness (Text): 10/30/17 19:32 57yr old female presents today with 2 day history of worsening SOB. pt states she has hx of COPD and feels as if her COPD is "acting up". pt states she has been having chest pain for the past 2 days. pt states she has been feeling more short of breath with ambulation. pt states she has been using her inhalers/ nebulizers at home without improvement. pt states she has been feeling dizzy. pt denies fever/chills. pt states she just recently started wearing compression stockings 3 days ago. pt denies uri symptoms. no other complaints. Past Medical History - Provider Review Nursing Documentation Reviewed: Yes - Travel History Have you recently traveled outside [place] w/in the past 3 mons?: No - Infectious Disease Hx of Infectious Diseases: None - Tetanus Immunization Tetanus Immunization: Unknown - Cardiac Hx Hypertension: Yes - Pulmonary Hx Chronic Obstructive Pulmonary Disease (COPD): Yes (O2 dependent) - HEENT Hx Deafness: Yes (L ear) - Renal Hx Renal Disorder: Yes Hx Renal Failure: Yes Other/Comment: H/O ARF. Had HD on her last admission - Endocrine/Metabolic Hx Diabetes Mellitus Type 2: Yes - Musculoskeletal/Rheumatological Hx Falls: No - Psychiatric Hx Substance Use: Yes (h/o heroine use) - Surgical History Other/Comment: R ear surgery - Anesthesia Hx Anesthesia: Yes Hx Anesthesia Reactions: No Hx Malignant Hyperthermia: No Family/Social History - Physician Review Nursing Documentation Reviewed: Yes Family/Social History: Unknown Family HX Smoking Status: Current Some Days Smoker Hx Alcohol Use: No Hx Substance Use: Yes (h/o heroine use) Allergies/Home Meds Allergies/Adverse Reactions: Allergies No Known Allergies Allergy (Verified 09/18/17 17:56) Home Medications: Home Meds Medication Instructions Recorded Confirmed Atazanavir [Reyataz] 300 mg PO 09/19/17 Emtricitabine/Tenofovir Diso 09/19/17 [Truvada 200 MG-300 MG] MetFORMIN [glucoPHAGE] 1,000 mg PO BID 09/19/17 09/19/17 Methadone 100 mg PO 09/19/17 Pantoprazole Sodium [Protonix] 40 mg PO 09/19/17 Ritonavir [Norvir] 100 mg PO 09/19/17 09/19/17 Simvastatin [Zocor] 20 mg PO 09/19/17 Review of Systems - Review of Systems Constitutional: absent: Fatigue, Fevers Respiratory: SOB. absent: Cough Cardiovascular: Chest Pain, Palpitations. absent: Syncope Gastrointestinal: absent: Abdominal Pain, Nausea, Vomiting Skin: absent: Rash, Pruritis Neurological: Dizziness Psychiatric: absent: Anxiety, Depression Physical Exam Vital Signs Reviewed: Yes Vital Signs Temp Pulse Resp BP Pulse Ox 10/31/17 02:00 80 20 146/78 96 10/30/17 23:53 12 10/30/17 22:58 76 14 144/81 97 10/30/17 19:55 81 14 126/92 H 98 10/30/17 18:38 98.2 F 80 20 190/109 H 99 Temperature: Afebrile Blood Pressure: Hypertensive Pulse: Regular Respiratory Rate: Normal Appearance: Positive for: Well-Appearing, Non-Toxic, Comfortable Pain Distress: None Mental Status: Positive for: Alert and Oriented X 3 - Systems Exam Head: Present: Atraumatic Mouth: Present: Moist Mucous Membranes Neck: Present: Normal Range of Motion Respiratory/Chest: Present: Clear to Auscultation. No: Respiratory Distress, Accessory Muscle Use, Wheezes, Tachypneic Cardiovascular: Present: Regular Rate and Rhythm. No: Tachycardic Abdomen: No: Tenderness, Rebound, Guarding Upper Extremity: Present: Normal ROM Lower Extremity: Present: Edema (+ right lower leg edema, slight erythema, + calf tenderness), Normal ROM Neurological: Present: GCS=15, Speech Normal Skin: Present: Warm, Dry, Normal Color Psychiatric: Present: Alert, Oriented x 3 Medical Decision Making ED Course and Treatment: 10/30/17 19:35 57yr old female with DM, HIV, COPD presents with 2 days of cp and SOB. duoneb given. cbc; wnl cmp; wnl trop: wnl ddimer; elevated bnp; wnl ekg; normal sinus rhythm at 80 bpm normal axis normal intervals no ST elevations cxr: Cardiomegaly CT; FINDINGS: Artifacts: Streak artifact degrades image quality.Motion artifact degrades image quality. Heart, aorta and Pulmonary arteries: The heart is enlarged. There is fluid in pericardial recesses. There is no aneurysm or dissection. Main pulmonary artery is mildly dilated. There are no central pulmonary emboli. Streak and motion limits evaluation of peripheral pulmonary arteries. There are no large peripheral pulmonary emboli. Lungs and pleural spaces: Trachea and main bronchi are patent.There is no pneumothorax. There is atelectasis and scarring at the lung bases. There is minimal dependent atelectasis. There is no focal consolidation. There is left retrocardiac atelectasis. There is been interval improvement in aeration compared to the prior study. There are no effusions. Mediastinum: There are shotty mediastinal nodes. There are enlarged paratracheal nodes. There is a 2 x 1.7 cm paratracheal node, image 84 series 601. There is no hilar adenopathy. The esophagus is not optimally demonstrated. There is a small hiatal hernia. Thyroid: Thyroid is not optimally demonstrated. Bones/joints: There are degenerative changes in the osseus structures. Soft tissues: unremarkable Lymph nodes: There is shoddy axillary adenopathy. Upper abdomen: There are no acute abnormalities in the visualized portion of the abdomen. There is thickening of both adrenals. IMPRESSION: Limited by streak and motion, no aneurysm, dissection or pulmonary embolus; cardiomegaly; paratracheal and axillary adenopathy; interval improvement in lung aeration venous duplex b/l legs; limited study; no dvt verbal report from [employer]. asa PO pt reassessment; pt resting comfortably on 2L nasal canula. case and plan discussed in depth with dr. ken; case discussed with Dr. ramirez will Admit observational status to Tele for chest pain r/o acs. impression; chest pain, SOB Admit observational status to tele; Reassessment Condition: Re-examined, Improved - Lab Interpretations Lab Results: 10/30/17 20:08 10/30/17 20:08 Lab Results 10/30/17 20:08: D-Dimer, Quantitative 292 H 10/30/17 20:08: PT 12.7 H, INR 1.11 H, APTT 25.9 10/30/17 20:08: WBC 8.5, RBC 3.90, Hgb 10.9 L, Hct 34.8 L, MCV 89.2, MCH 27.9, MCHC 31.3, RDW 15.3 H, Plt Count 253, MPV 10.5, Gran % 71.6 H, Lymph % (Auto) 21.6 L, [place] % (Auto) 5.4, Eos % (Auto) 1.3 L, Baso % (Auto) 0.1, Gran # 6.09, Lymph # (Auto) 1.8, [place] # (Auto) 0.5, Eos # (Auto) 0.1, Baso # (Auto) 0.01 10/30/17 20:08: Sodium 143, Potassium 4.0, Chloride 102, Carbon Dioxide 33, Anion Gap 13, BUN 13, Creatinine 0.6 L, Est GFR ( Amer) > 60, Est GFR ( Non-Af Amer) > 60, Random Glucose 103, Calcium 9.0, Total Bilirubin 2.0 H, AST 40 H D, ALT 35, Alkaline Phosphatase 86, Lactate Dehydrogenase 837 H, Total Creatine Kinase 126, Troponin I < 0.01, NT-Pro-B Natriuret Pep 171, Total Protein 7.8, Albumin 3.8, Globulin 4.0, Albumin/Globulin Ratio 1.0 L, Lipase < 10 L - RAD Interpretation Radiology Orders: 10/30/17 19:17 CHEST PORTABLE [RAD] Stat 10/30/17 21:18 ANGIO CHEST PE PROTOCOL [CT] Stat 10/30/17 23:41 DUPLEX LOWER EXTRM VEIN BILAT [US] Stat - Medication Orders Current Medication Orders: Albuterol/Ipratropium (Duoneb 3 Mg/0.5 Mg (3 Ml) Ud) 3 ml IH [id number] [facility] Albuterol/Ipratropium (Duoneb 3 Mg/0.5 Mg (3 Ml) Ud) 3 ml IH [id number] PRN PRN Reason: Shortness of Breath Aspirin (Aspirin Chewable) 81 mg PO DAILY [facility] Atazanavir (Reyataz) 300 mg PO DAILY [facility] Gabapentin (Neurontin) 100 mg PO TID [facility] PRN Reason: Protocol Losartan Potassium (Cozaar) 50 mg PO DAILY [facility] Methadone HCl (Methadone) 100 mg PO DAILY [facility] Pantoprazole Sodium (Protonix Inj) 40 mg IVP DAILY [facility] Discontinued Medications Albuterol/Ipratropium (Duoneb 3 Mg/0.5 Mg (3 Ml) Ud) 3 ml IH STAT STA Stop: 10/30/17 19:22 Last Admin: 10/30/17 19:35 Dose: 3 ml Aspirin (Aspirin) 325 mg PO STAT STA Stop: 10/31/17 00:04 Last Admin: 10/31/17 00:18 Dose: 325 mg Sodium Chloride (Sodium Chloride 0.9%) 500 mls @ 999 mls/hr IV .Q31M STA Stop: 10/30/17 23:50 Last Admin: 10/30/17 23:30 Dose: 999 mls/hr eMAR Start Stop Document 10/30/17 23:30 LARISA (Rec: 10/31/17 00:20 LARISA [id number]) Intravenous Solution Start Date 10/31/17 Start Time 23:20 Disposition/Present on Arrival - Present on Arrival Any Indicators Present on Arrival: No History of DVT/PE: No History of Uncontrolled Diabetes: No Urinary Catheter: No History of Decub. Ulcer: No History Surgical Site Infection Following: None - Disposition Have Diagnosis and Disposition been Completed?: Yes Diagnosis: Shortness of breath, Chest pain Disposition: HOSPITALIZED Disposition Time: 22:00 Patient Plan: Observation Condition: FAIR
[2017-10-30 20:25] LABS: BASO # 0.01 K/mm3 (0.0-2.0); BASO % 0.1 % (0.0-3.0); EOS # 0.1 (0.0-0.7); EOS % 1.3 % (1.5-5.0); GRAN # 6.09 (1.4-6.5); GRAN % 71.6 % (50.0-68.0); HEMOGLOBIN 10.9 g/dL (12.0-16.0); LYMPH # 1.8 (1.2-3.4); LYMPH % 21.6 % (22.0-35.0); MEAN CELL VOLUME 89.2 fl (80.0-105.0); MEAN CORPUSCULAR HEMOGLOBIN 27.9 pg (25.0-35.0); MEAN CORPUSCULAR HGB CONC 31.3 g/dl (31.0-37.0); MEAN PLATELET VOLUME 10.5 fl (7.0-11.0); MONO # 0.5 (0.1-0.6); MONO % 5.4 % (1.0-6.0); RBC 3.9 10^6/uL (3.5-6.1); RED CELL DISTRIBUTION WIDTH 15.3 % (11.5-14.5); WHITE BLOOD COUNT 8.5 10^3/ul (4.5-11.0)
[2017-10-30 20:29] LABS: ALBUMIN 3.8 g/dL (3.0-4.8); GFR AFRICAN-AMERICAN > 60; GFR NON-AFRICAN AMERICAN > 60
[2017-10-30 20:35] LABS: ALT/SGPT 35 U/L (7-56); AST/SGOT 40 U/L (14-36); BLOOD UREA NITROGEN 13 mg/dL (7-21); LIPASE < 10 U/L (23-300)
[2017-10-30 20:41] LABS: B-TYPE NATRIURETIC PEPTIDE 171 pg/mL (0-450); TROPONIN I < 0.01 ng/mL
[2017-10-30 20:50] LABS: INR 1.11 (0.93-1.08); PARTIAL THROMBOPLASTIN TIME 25.9 Seconds (25.1-36.5); PROTHROMBIN TIME 12.7 SECONDS (9.4-12.5)
[2017-10-30] MEDS ORDERED: Vancomycin 1gm in NS 250ml 1 GM/250 ML BAG IVPB STA (20:59)
[2017-10-30] MEDS ORDERED: Cefepime 1gm in NS 100ml 1 GM/100 ML BAG IVPB SCH (21:00)
[2017-10-30] MEDS ORDERED: Sodium Chloride 0.9% 500 ML IV STA (23:20)
--- NOTE | 2017-10-30 23:38 | CT ---
EXAM: CT Angiography Chest With Intravenous Contrast EXAM DATE/TIME: 10/30/2017 9:18 PM CLINICAL HISTORY: 57 years old, female; Signs and symptoms; Shortness of breath; Additional info: SOB TECHNIQUE: Axial computed tomographic angiography images of the chest with intravenous contrast using pulmonary embolism protocol. All CT scans at this facility use one or more dose reduction techniques, viz.: automated exposure control; ma/kV adjustment per patient size (including targeted exams where dose is matched to indication; i.e. head); or iterative reconstruction technique. MIP reconstructed images were created and reviewed. Coronal and sagittal reformatted images were created and reviewed. CONTRAST: 139 mL of omni 350 administered intravenously. COMPARISON: CT - CHEST W/O CONTRAST 2017-09-18 22:31 FINDINGS: Artifacts: Streak artifact degrades image quality.Motion artifact degrades image quality. Heart, aorta and Pulmonary arteries: The heart is enlarged. There is fluid in pericardial recesses. There is no aneurysm or dissection. Main pulmonary artery is mildly dilated. There are no central pulmonary emboli. Streak and motion limits evaluation of peripheral pulmonary arteries. There are no large peripheral pulmonary emboli. Lungs and pleural spaces: Trachea and main bronchi are patent.There is no pneumothorax. There is atelectasis and scarring at the lung bases. There is minimal dependent atelectasis. There is no focal consolidation. There is left retrocardiac atelectasis. There is been interval improvement in aeration compared to the prior study. There are no effusions. Mediastinum: There are shotty mediastinal nodes. There are enlarged paratracheal nodes. There is a 2 x 1.7 cm paratracheal node, image 84 series 601. There is no hilar adenopathy. The esophagus is not optimally demonstrated. There is a small hiatal hernia. Thyroid: Thyroid is not optimally demonstrated. Bones/joints: There are degenerative changes in the osseus structures. Soft tissues: unremarkable Lymph nodes: There is shoddy axillary adenopathy. Upper abdomen: There are no acute abnormalities in the visualized portion of the abdomen. There is thickening of both adrenals. IMPRESSION: Limited by streak and motion, no aneurysm, dissection or pulmonary embolus; cardiomegaly; paratracheal and axillary adenopathy; interval improvement in lung aeration
[2017-10-31] MEDS ORDERED: Albuterol-Ipratrop 3 mg / 0.5 (3 ml) UD IH PRN (00:23)
[2017-10-31] MEDS: Albuterol-Ipratrop 3 mg / 0.5 (3 ml) UD IH SCH ×5 (03:07→20:15)
--- NOTE | 2017-10-31 05:03 | CP.PCM.HP ---
History of Present Illness - History of Present Illness History of Present Illness: Shob COPD CC: Shortness of Breath HPI: 57 year old female with past medical history of DM, HTN, OA of b/l knees, HIV, COPD, and osteoporosis who presents with 2 day history of shortness of breath. Patient reports shob is worse with walking even short distances. Patient denies productive cough, fever, chills, sharp pain with inspriation. Patient reports mild chest pressure that is exacerbated with movement. She denies radiation of chest pain, nausea, vomiting, sweating sensation. Patient reports pain more severe prior to admission. Patient reports compliance with medications and appropriate follow up. Associated symptoms for patient include right lower calf pain with some erythema and warmth to the limb. Patient indicates recent development of symptoms. 12 point ROS is benign other than mentioned in HPI. PMH: DM, HTN, OA of b/l knees, HIV, COPD, and osteoporosis Surg: Ear surgery All: NKDA FHx: DM, HTN, CAD, breast CA SH: 1/2 ppd for 30 yrs, admitted to prior heroin (snort) use for 6 months (quit 15 months ago) currently on methadone 100 mg daily, denied EtOH [facility] (Methadone) [phone] Present on Admission - Present on Admission Any Indicators Present on Admission: No Review of Systems - Review of Systems All systems: reviewed and no additional remarkable complaints except (as in hpi) Past Patient History - Infectious Disease Hx of Infectious Diseases: None - Tetanus Immunizations Tetanus Immunization: Unknown - Past Social History Smoking Status: Current Some Days Smoker - CARDIAC Hx Hypercholesterolemia: Yes Hx Hypertension: Yes Hx Peripheral Edema: Yes - PULMONARY Hx Bronchitis: Yes Hx Chronic Obstructive Pulmonary Disease (COPD): Yes (O2 dependent) Hx Sleep Apnea: Yes (CPAP at home) - HEENT Hx HEENT Problems: Yes (Glasses) Hx Deafness: Yes (left ear deafness) - RENAL Hx Renal Failure: Yes (Received HD on last admission) - ENDOCRINE/METABOLIC Hx Diabetes Mellitus Type 2: Yes - HEMATOLOGICAL/ONCOLOGICAL Hx Human Immunodeficiency Virus (HIV): Yes (HIV+ (1990)) - MUSCULOSKELETAL/RHEUMATOLOGICAL Hx Falls: No - GASTROINTESTINAL Hx Gastroesophageal Reflux: Yes - PSYCHIATRIC Hx Substance Use: Yes (h/o heroine use) - SURGICAL HISTORY Hx Surgeries: Yes (right ear) - ANESTHESIA Hx Anesthesia: Yes Hx Anesthesia Reactions: No Hx Malignant Hyperthermia: No Meds Allergies/Adverse Reactions: Allergies Allergy/AdvReac Type Severity Reaction Status Date / Time No Known Allergies Allergy Verified 09/18/17 17:56 Physical Exam - Constitutional Appears: Non-toxic Additional comments: no conversational dyspnea - Head Exam Head Exam: ATRAUMATIC, NORMAL INSPECTION, NORMOCEPHALIC - Eye Exam Eye Exam: EOMI, PERRL - ENT Exam ENT Exam: Mucous Membranes Moist - Neck Exam Neck exam: Positive for: Full Rom - Respiratory Exam Respiratory Exam: Clear to Auscultation Bilateral, Wheezes (minimal bases b/l), NORMAL BREATHING PATTERN. absent: Decreased Breath Sounds, Rales - Cardiovascular Exam Cardiovascular Exam: REGULAR RHYTHM, +S1, +S2 - GI/Abdominal Exam GI & Abdominal Exam: Normal Bowel Sounds, Soft. absent: Firm, Guarding, Tenderness - Extremities Exam Extremities exam: Positive for: pedal pulses present. Negative for: calf tenderness Additional comments: right lower extremity with slightly more swelling, bruising of right posterior calf noted - Neurological Exam Neurological exam: Alert, CN II-XII Intact, Normal Gait, Oriented x3 - Psychiatric Exam Psychiatric exam: Anxious, Normal Mood - Skin Skin Exam: Dry, Warm Results - Vital Signs Recent Vital Signs: Last Vital Signs Temp 98.2 F 10/30/17 18:38 Pulse 80 10/31/17 02:00 Resp 20 10/31/17 02:00 BP 146/78 10/31/17 02:00 Pulse Ox 96 10/31/17 02:00 - Labs Result Diagrams: 10/30/17 20:08 10/30/17 20:08 Labs: Laboratory Results - last 24 hr 10/30/17 10/30/17 10/30/17 20:08 20:08 20:08 WBC 8.5 RBC 3.90 Hgb 10.9 L Hct 34.8 L MCV 89.2 MCH 27.9 MCHC 31.3 RDW 15.3 H Plt Count 253 MPV 10.5 Gran % 71.6 H Lymph % (Auto) 21.6 L Rhea % (Auto) 5.4 Eos % (Auto) 1.3 L Baso % (Auto) 0.1 Gran # 6.09 Lymph # (Auto) 1.8 Rhea # (Auto) 0.5 Eos # (Auto) 0.1 Baso # (Auto) 0.01 PT 12.7 H INR 1.11 H APTT 25.9 D-Dimer, Quantitative Sodium 143 Potassium 4.0 Chloride 102 Carbon Dioxide 33 Anion Gap 13 BUN 13 Creatinine 0.6 L Est GFR ( Amer) > 60 Est GFR (Non-Af Amer) > 60 Random Glucose 103 Calcium 9.0 Total Bilirubin 2.0 H AST 40 H D ALT 35 Alkaline Phosphatase 86 Lactate Dehydrogenase 837 H Total Creatine Kinase 126 Troponin I < 0.01 NT-Pro-B Natriuret Pep 171 Total Protein 7.8 Albumin 3.8 Globulin 4.0 Albumin/Globulin Ratio 1.0 L Lipase < 10 L 10/30/17 20:08 WBC RBC Hgb Hct MCV MCH MCHC RDW Plt Count MPV Gran % Lymph % (Auto) Rhea % (Auto) Eos % (Auto) Baso % (Auto) Gran # Lymph # (Auto) Rhea # (Auto) Eos # (Auto) Baso # (Auto) PT INR APTT D-Dimer, Quantitative 292 H Sodium Potassium Chloride Carbon Dioxide Anion Gap BUN Creatinine Est GFR ( Amer) Est GFR (Non-Af Amer) Random Glucose Calcium Total Bilirubin AST ALT Alkaline Phosphatase Lactate Dehydrogenase Total Creatine Kinase Troponin I NT-Pro-B Natriuret Pep Total Protein Albumin Globulin Albumin/Globulin Ratio Lipase Assessment & Plan - Assessment and Plan (Free Text) Assessment: 57 year old female with past medical history of DM, HTN, OA of b/l knees, HIV, COPD, and osteoporosis who presents with 2 day history of shortness of breath and chest discomfort. Patient admitted for ACS r/o. Plan: Shortness of breath - COPD history, patient requiring more of her home albuterol inhaler and nebulizer medications, exam with minimal expiratory wheezing - Limited by streak and motion, no aneurysm, dissection or pulmonary embolus; cardiomegaly; paratracheal and axillary adenopathy; interval improvement in lung aeration - duobenb treatments - Holding steroids at this time - venous b/l legs negative - Monitor in AM Chest Pain r/o ACS - Patient describes chest pressure - EKG in AM - Initial troponin negative, trend troponins H/o HIV - CD4 count 305, check for viral load in records - Continue with HAART and other home medications Right lower extremity pain - Calf appears to be warm, minimally tender to palpation, erythema, warmth appreciated - ESR, Left knee pain - Likely 2/2 osteoarthritis - B/L knee xray from previous admision showing narrow spacing and osteophytes - Tylenol for pain GI/DVT ppx - Protonix - Heparin Case and plan discussed with attending - Date & Time Date: 10/31/17 Time: 05:05
[2017-10-31 06:49] LABS: BASO # 0.01 K/mm3 (0.0-2.0); BASO % 0.2 % (0.0-3.0); EOS # 0.1 (0.0-0.7); EOS % 1.4 % (1.5-5.0); GRAN # 4.28 (1.4-6.5); GRAN % 65.2 % (50.0-68.0); HEMOGLOBIN 10.1 g/dL (12.0-16.0); LYMPH # 1.7 (1.2-3.4); MEAN CELL VOLUME 89.6 fl (80.0-105.0); MEAN CORPUSCULAR HEMOGLOBIN 26.9 pg (25.0-35.0); MEAN PLATELET VOLUME 10.4 fl (7.0-11.0); MONO # 0.5 (0.1-0.6); MONO % 7.2 % (1.0-6.0); RBC 3.76 10^6/uL (3.5-6.1); RED CELL DISTRIBUTION WIDTH 15.7 % (11.5-14.5); WHITE BLOOD COUNT 6.6 10^3/ul (4.5-11.0)
[2017-10-31 08:42] LABS: ALB/GLOB RATIO 0.9 (1.1-1.8); ALBUMIN 3.6 g/dL (3.0-4.8); ALT/SGPT 36 U/L (7-56); AST/SGOT 43 U/L (14-36); BLOOD UREA NITROGEN 14 mg/dL (7-21); CALCIUM 8.9 mg/dL (8.4-10.5); GFR AFRICAN-AMERICAN > 60; GFR NON-AFRICAN AMERICAN > 60
[2017-10-31 08:53] LABS: TROPONIN I < 0.01 ng/mL
--- NOTE | 2017-10-31 09:09 | RAD ---
HISTORY: chest pain/sob COMPARISON: 09/20/2017 FINDINGS: LUNGS: No active pulmonary disease. PLEURA: No significant pleural effusion identified, no pneumothorax apparent. CARDIOVASCULAR: Moderate cardiomegaly. Mild vascular congestion OSSEOUS STRUCTURES: No significant abnormalities. VISUALIZED UPPER ABDOMEN: Normal. OTHER FINDINGS: None. IMPRESSION: Moderate cardiomegaly. Mild vascular congestion
--- NOTE | 2017-10-31 10:09 | US ---
HISTORY: Leg pain and swelling. Evaluate for DVT PHYSICIAN(S): Aftab Bernard MD. TECHNIQUE: Duplex sonography and color-flow Doppler with graded compression were used to evaluate the deep venous systems of both lower extremities. The exam is very limited due to body habitus and edema. The lower femoral veins and tibial veins are not well seen FINDINGS: The visualized deep venous systems of both lower extremities are sonographically normal and compressible. Normal wave forms and augmentation are seen. There is no sonographic evidence for deep venous thrombosis in the visualized segments of both lower extremities. IMPRESSION: No sonographic evidence for deep venous thrombosis in the visualized segments of both lower extremities. Very limited study
[2017-10-31] MEDS: Emtricitabine-Tenofovir 200 mg-300 mg Tab PO SCH (11:04)
[2017-10-31] MEDS ORDERED: MethylPREDNISolone 40 mg Vial IVP SCH (13:00)
--- NOTE | 2017-10-31 16:52 | CARD ---
APPROVED REPORT EKG Measurement Heart [id number] <Conclusion> Normal sinus rhythm Normal ECG
--- NOTE | 2017-10-31 16:52 | CARD ---
APPROVED REPORT EKG Measurement Heart [id number] <Conclusion> Normal sinus rhythm Normal ECG
[2017-11-01] MEDS: Albuterol-Ipratrop 3 mg / 0.5 (3 ml) UD IH SCH ×6 (01:05→23:18)
[2017-11-01 07:51] LABS: ALB/GLOB RATIO 0.9 (1.1-1.8); ALBUMIN 3.9 g/dL (3.0-4.8); ALT/SGPT 32 U/L (7-56); AST/SGOT 37 U/L (14-36); BLOOD UREA NITROGEN 17 mg/dL (7-21); CALCIUM 9.2 mg/dL (8.4-10.5); GFR AFRICAN-AMERICAN > 60; GFR NON-AFRICAN AMERICAN > 60; GRAN # 8.78 (1.4-6.5); GRAN % 86.3 % (50.0-68.0); HEMOGLOBIN 10.8 g/dL (12.0-16.0); LYMPH % 9.7 % (22.0-35.0); MEAN CELL VOLUME 89.4 fl (80.0-105.0); MEAN CORPUSCULAR HEMOGLOBIN 27.3 pg (25.0-35.0); MEAN CORPUSCULAR HGB CONC 30.6 g/dl (31.0-37.0); MEAN PLATELET VOLUME 10.5 fl (7.0-11.0); MONO # 0.4 (0.1-0.6); RBC 3.95 10^6/uL (3.5-6.1); RED CELL DISTRIBUTION WIDTH 15.4 % (11.5-14.5); WHITE BLOOD COUNT 10.2 10^3/ul (4.5-11.0)
[2017-11-01] MEDS ORDERED: MethylPREDNISolone 40 mg Vial IVP SCH (10:00)
--- NOTE | 2017-11-01 11:39 | CP.PCM.PN ---
<Victor Hugo Herrera - Last Filed: 11/01/17 11:46> Subjective - Date & Time of Evaluation Date of Evaluation: 11/01/17 Time of Evaluation: 11:36 - Subjective Subjective: Hospitalist Service: Patient seen and examined at bedside. Patient reports tender lower extremities and feels like she has a chest cold. Nurse reports no events overnight. Objective - Vital Signs/Intake and Output Vital Signs (last 24 hours): Temp Pulse Resp BP Pulse Ox 98 F 88 20 161/94 H 95 11/01/17 07:53 11/01/17 07:53 11/01/17 07:53 11/01/17 07:53 11/01/17 07:53 Intake and Output: 11/01/17 11/01/17 06:59 18:59 Intake Total 250 Balance 250 - Medications Medications: Current Medications Acetaminophen (Tylenol 325mg Tab) 650 mg PO Q6H PRN PRN Reason: Fever Last Admin: 10/31/17 23:37 Dose: 650 mg Albuterol/Ipratropium (Duoneb 3 Mg/0.5 Mg (3 Ml) Ud) 3 ml IH [id number] [facility] Last Admin: 11/01/17 08:27 Dose: Not Given Albuterol/Ipratropium (Duoneb 3 Mg/0.5 Mg (3 Ml) Ud) 3 ml IH [id number] PRN PRN Reason: Shortness of Breath Aspirin (Aspirin Chewable) 81 mg PO DAILY [facility] Last Admin: 10/31/17 11:06 Dose: 81 mg Atazanavir (Reyataz) 300 mg PO DAILY [facility] Last Admin: 10/31/17 11:06 Dose: 300 mg Emtricitabine/Tenofovir (Truvada 200 Mg-300 Mg) 1 tab PO DAILY [facility] PRN Reason: Protocol Last Admin: 10/31/17 11:04 Dose: 1 tab Furosemide (Lasix) 40 mg IVP DAILY [facility] Gabapentin (Neurontin) 100 mg PO TID [facility] PRN Reason: Protocol Last Admin: 10/31/17 17:49 Dose: 100 mg Losartan Potassium (Cozaar) 50 mg PO DAILY [facility] Last Admin: 10/31/17 11:06 Dose: 50 mg Methadone HCl (Methadone) 100 mg PO DAILY [facility] Last Admin: 10/31/17 11:03 Dose: 100 mg Methylprednisolone (Solu-Medrol) 40 mg IVP DAILY [facility] Pantoprazole Sodium (Protonix Inj) 40 mg IVP DAILY [facility] Last Admin: 10/31/17 11:03 Dose: 40 mg Ritonavir (Norvir) 100 mg PO DAILY [facility] PRN Reason: Protocol Trazodone HCl (Desyrel) 50 mg PO HS [facility] Last Admin: 11/01/17 00:43 Dose: 50 mg - Labs Labs: 11/01/17 07:00 11/01/17 07:00 PT 12.7 SECONDS (9.4-12.5) H 10/30/17 20:08 INR 1.11 (0.93-1.08) H 10/30/17 20:08 APTT 25.9 Seconds (25.1-36.5) 10/30/17 20:08 - Constitutional Appears: Non-toxic - Head Exam Head Exam: ATRAUMATIC, NORMOCEPHALIC - Eye Exam Eye Exam: EOMI, Normal appearance - ENT Exam ENT Exam: Mucous Membranes Moist - Neck Exam Neck Exam: Normal Inspection - Respiratory Exam Respiratory Exam: Clear to Ausculation Bilateral, NORMAL BREATHING PATTERN. absent: Accessory Muscle Use - Cardiovascular Exam Cardiovascular Exam: RRR, +S1, +S2 - GI/Abdominal Exam GI & Abdominal Exam: Soft, Normal Bowel Sounds - Extremities Exam Extremities Exam: Normal Inspection. absent: Calf Tenderness - Neurological Exam Neurological Exam: Alert, Awake, Oriented x3 - Psychiatric Exam Psychiatric exam: Normal Affect, Normal Mood - Skin Skin Exam: Dry, Intact, Normal Color, Warm Assessment and Plan - Assessment and Plan (Free Text) Assessment: 57 year old female with past medical history of DM, HTN,OHS, OA of b/l knees, HIV, COPD, and osteoporosis who presents with 2 day history of shortness of breath and chest discomfort. Patient admitted for ACS r/o. Plan: Shortness of breath - COPD history, patient requiring more of her home albuterol inhaler and nebulizer medications, exam with minimal expiratory wheezing - Chest CT Limited by streak and motion, no aneurysm, dissection or pulmonary embolus; cardiomegaly; paratracheal and axillary adenopathy; interval improvement in lung aeration - duobenb treatments - Solumedrol 40 mg IVP Daily steroids at this time - venous b/l legs negative - Monitor in AM Chest Pain r/o ACS - Patient describes chest pressure - EKG negative for active ischemia - troponins x3 negative HIV - Last CD4 count 305 - Continue with HAART and other home medications Bilateral lower extremity - Lasix 40 mg IVP - venous US negative for DVT in bilateral lower extremity Left knee pain - Likely 2/2 osteoarthritis - B/L knee xray from previous admision showing narrow spacing and osteophytes - Tylenol for pain Opiate dependence - Methadone 100 mg PO daily Hypertension - Losartan 50 mg PO daily - GI/DVT ppx - Protonix - Heparin Case and plan discussed with attending, Dr. Rasheed <Dagoberto Rasheed - Last Filed: 11/01/17 13:10> Objective - Vital Signs/Intake and Output Vital Signs (last 24 hours): Temp Pulse Resp BP Pulse Ox 98 F 88 20 158/90 H 95 11/01/17 07:53 11/01/17 07:53 11/01/17 07:53 11/01/17 12:26 11/01/17 07:53 Intake and Output: 11/01/17 11/01/17 06:59 18:59 Intake Total 250 Balance 250 - Medications Medications: Current Medications Acetaminophen (Tylenol 325mg Tab) 650 mg PO Q6H PRN PRN Reason: Fever Last Admin: 10/31/17 23:37 Dose: 650 mg Albuterol/Ipratropium (Duoneb 3 Mg/0.5 Mg (3 Ml) Ud) 3 ml IH [id number] [facility] Last Admin: 11/01/17 12:47 Dose: 3 ml Albuterol/Ipratropium (Duoneb 3 Mg/0.5 Mg (3 Ml) Ud) 3 ml IH [id number] PRN PRN Reason: Shortness of Breath Aspirin (Aspirin Chewable) 81 mg PO DAILY [facility] Last Admin: 11/01/17 12:24 Dose: 81 mg Atazanavir (Reyataz) 300 mg PO DAILY [facility] Last Admin: 11/01/17 12:23 Dose: 300 mg Emtricitabine/Tenofovir (Truvada 200 Mg-300 Mg) 1 tab PO DAILY [facility] PRN Reason: Protocol Last Admin: 11/01/17 12:32 Dose: 1 tab Furosemide (Lasix) 40 mg IVP DAILY [facility] Last Admin: 11/01/17 12:26 Dose: 40 mg Gabapentin (Neurontin) 100 mg PO TID [facility] PRN Reason: Protocol Last Admin: 11/01/17 12:24 Dose: 100 mg Losartan Potassium (Cozaar) 50 mg PO DAILY [facility] Last Admin: 11/01/17 12:24 Dose: 50 mg Methadone HCl (Methadone) 100 mg PO DAILY [facility] Last Admin: 11/01/17 12:25 Dose: 100 mg Methylprednisolone (Solu-Medrol) 40 mg IVP DAILY [facility] Last Admin: 11/01/17 12:27 Dose: 40 mg Pantoprazole Sodium (Protonix Inj) 40 mg IVP DAILY [facility] Last Admin: 11/01/17 12:26 Dose: 40 mg Ritonavir (Norvir) 100 mg PO DAILY [facility] PRN Reason: Protocol Last Admin: 11/01/17 12:25 Dose: 100 mg Trazodone HCl (Desyrel) 50 mg PO HS [facility] Last Admin: 11/01/17 00:43 Dose: 50 mg - Labs Labs: 11/01/17 07:00 11/01/17 07:00 PT 12.7 SECONDS (9.4-12.5) H 10/30/17 20:08 INR 1.11 (0.93-1.08) H 10/30/17 20:08 APTT 25.9 Seconds (25.1-36.5) 10/30/17 20:08 Attending/Attestation - Attestation I have personally seen and examined this patient.: Yes I have fully participated in the care of the patient.: Yes I have reviewed all pertinent clinical information, including history, physical exam and plan: Yes Notes (Text): 11/01/17 13:07 Medical record note made by the resident after discussion with my direction and input after the patient was personally seen and examined by me. I have reviewed the chart and agree that the record accurately reflects by personal performance of the history, physical exam, data review, and medical decision-making, in the course for the patient. I have also personally directed the plan of care. 57 year old female with PMH of HIV, COPD, Sleep apnea,Pulmonary HTN, drug abuse on Methadone was admitted with worsening dyspnea due to COPD exacerbation, COPD is improving with NEB and steroid, wheezing has improved. Patient has elevated bilurubin likely due to congested liver, no evideice of hemolysis, less likely due to HIV medication, will give IV lasix and will monitor LFT. Management plan was discussed in detail with patient. Education was provided.
[2017-11-01] MEDS: Emtricitabine-Tenofovir 200 mg-300 mg Tab PO SCH (12:32)
[2017-11-02] MEDS: Albuterol-Ipratrop 3 mg / 0.5 (3 ml) UD IH SCH ×5 (05:13→19:40)
[2017-11-02 07:28] LABS: ALB/GLOB RATIO 0.9 (1.1-1.8); ALBUMIN 4.1 g/dL (3.0-4.8); ALT/SGPT 39 U/L (7-56); AST/SGOT 31 U/L (14-36); BLOOD UREA NITROGEN 21 mg/dL (7-21); CALCIUM 9.8 mg/dL (8.4-10.5); GFR AFRICAN-AMERICAN > 60; GFR NON-AFRICAN AMERICAN > 60
[2017-11-02 07:29] LABS: GRAN # 11.68 (1.4-6.5); GRAN % 85.5 % (50.0-68.0); HEMOGLOBIN 11.3 g/dL (12.0-16.0); LYMPH # 1.3 (1.2-3.4); LYMPH % 9.2 % (22.0-35.0); MEAN CELL VOLUME 89.4 fl (80.0-105.0); MEAN CORPUSCULAR HEMOGLOBIN 27.1 pg (25.0-35.0); MEAN CORPUSCULAR HGB CONC 30.3 g/dl (31.0-37.0); MEAN PLATELET VOLUME 10.3 fl (7.0-11.0); MONO # 0.7 (0.1-0.6); MONO % 5.3 % (1.0-6.0); RBC 4.17 10^6/uL (3.5-6.1); RED CELL DISTRIBUTION WIDTH 15.7 % (11.5-14.5); WHITE BLOOD COUNT 13.7 10^3/ul (4.5-11.0)
--- NOTE | 2017-11-02 11:37 | CP.PCM.PN ---
<Victor Hugo Herrera - Last Filed: 11/02/17 11:43> Subjective - Date & Time of Evaluation Date of Evaluation: 11/02/17 Time of Evaluation: 10:00 - Subjective Subjective: Hospitalist Service Patient seen and examined at bedside. Patient reports she feeling better and states she will cooperate with Physical Therapist. Patient reports lower extremity neuropathy is bothering her as well as right groin pain. She request for pain medications. No events noted overnight. Objective - Vital Signs/Intake and Output Vital Signs (last 24 hours): Temp Pulse Resp BP Pulse Ox 98 F 67 18 169/94 H 94 L 11/02/17 07:34 11/02/17 07:34 11/02/17 07:34 11/02/17 07:34 11/02/17 07:34 - Medications Medications: Current Medications Acetaminophen (Tylenol 325mg Tab) 650 mg PO Q6H PRN PRN Reason: Fever Last Admin: 11/02/17 04:02 Dose: 650 mg Albuterol/Ipratropium (Duoneb 3 Mg/0.5 Mg (3 Ml) Ud) 3 ml IH [id number] [facility] Last Admin: 11/02/17 08:50 Dose: 3 ml Albuterol/Ipratropium (Duoneb 3 Mg/0.5 Mg (3 Ml) Ud) 3 ml IH [id number] PRN PRN Reason: Shortness of Breath Aspirin (Aspirin Chewable) 81 mg PO DAILY [facility] Last Admin: 11/01/17 12:24 Dose: 81 mg Atazanavir (Reyataz) 300 mg PO DAILY [facility] Last Admin: 11/01/17 12:23 Dose: 300 mg Emtricitabine/Tenofovir (Truvada 200 Mg-300 Mg) 1 tab PO DAILY [facility] PRN Reason: Protocol Last Admin: 11/01/17 12:32 Dose: 1 tab Furosemide (Lasix) 40 mg IVP DAILY [facility] Last Admin: 11/01/17 12:26 Dose: 40 mg Gabapentin (Neurontin) 100 mg PO TID [facility] PRN Reason: Protocol Last Admin: 11/01/17 17:14 Dose: 100 mg Losartan Potassium (Cozaar) 75 mg PO DAILY [facility] Methadone HCl (Methadone) 100 mg PO DAILY [facility] Last Admin: 11/01/17 12:25 Dose: 100 mg Pantoprazole Sodium (Protonix Inj) 40 mg IVP DAILY [facility] Last Admin: 11/01/17 12:26 Dose: 40 mg Prednisone (Prednisone Tab) 40 mg PO DAILY [facility] Stop: 11/04/17 10:01 Ritonavir (Norvir) 100 mg PO DAILY [facility] PRN Reason: Protocol Last Admin: 11/01/17 12:25 Dose: 100 mg Trazodone HCl (Desyrel) 50 mg PO HS [facility] Last Admin: 11/01/17 22:02 Dose: 50 mg - Labs Labs: PT 12.7 SECONDS (9.4-12.5) H 10/30/17 20:08 INR 1.11 (0.93-1.08) H 10/30/17 20:08 APTT 25.9 Seconds (25.1-36.5) 10/30/17 20:08 - Constitutional Appears: Non-toxic, No Acute Distress - Head Exam Head Exam: ATRAUMATIC, NORMOCEPHALIC - Eye Exam Eye Exam: EOMI, Normal appearance - ENT Exam ENT Exam: Mucous Membranes Moist - Neck Exam Neck Exam: Normal Inspection - Respiratory Exam Respiratory Exam: Clear to Ausculation Bilateral, NORMAL BREATHING PATTERN. absent: Wheezes - Cardiovascular Exam Cardiovascular Exam: +S1, +S2 - GI/Abdominal Exam GI & Abdominal Exam: Soft, Normal Bowel Sounds. absent: Guarding, Rebound - Extremities Exam Extremities Exam: Pedal Edema. absent: Calf Tenderness - Neurological Exam Neurological Exam: Alert, Awake, Oriented x3 - Psychiatric Exam Psychiatric exam: Normal Affect, Normal Mood - Skin Skin Exam: Dry, Intact, Normal Color, Warm Assessment and Plan - Assessment and Plan (Free Text) Assessment: 57 year old female with past medical history of DM, HTN,OHS, OA of b/l knees, HIV, COPD, and osteoporosis who presents with 2 day history of shortness of breath and chest discomfort. Patient admitted for ACS r/o. Plan: Shortness of breath - COPD history, patient requiring more of her home albuterol inhaler and nebulizer medications, exam with minimal expiratory wheezing - Chest CT Limited by streak and motion, no aneurysm, dissection or pulmonary embolus; cardiomegaly; paratracheal and axillary adenopathy; interval improvement in lung aeration - duobenb treatments - Prednisone 40 mg PO daily (total of three days). - venous b/l legs negative Chest Pain r/o ACS - Patient describes chest pressure - EKG negative for active ischemia - troponins x3 negative - Aspirin 81 mg PO daily HIV - Last CD4 count 305 - Continue with HAART and other home medications Bilateral lower extremity - Lasix 40 mg - Venous US negative for DVT Peripheral Neuropathy - Likely 2/2 osteoarthritis - B/L knee xray from previous admision showing narrow spacing and osteophytes - Tylenol for pain - Neurontin 100 mg TID Opiate dependence - Methadone 100 mg PO daily Hypertension - Losartan 75 mg PO daily - GI/DVT ppx - Protonix - Heparin Case and plan discussed with attending, Dr. Rasheed <Dagoberto Rasheed - Last Filed: 11/02/17 12:37> Objective - Vital Signs/Intake and Output Vital Signs (last 24 hours): Temp Pulse Resp BP Pulse Ox 98 F 67 18 164/96 H 94 L 11/02/17 07:34 11/02/17 07:34 11/02/17 07:34 11/02/17 12:15 11/02/17 07:34 - Medications Medications: Current Medications Acetaminophen (Tylenol 325mg Tab) 650 mg PO Q6H PRN PRN Reason: Fever Last Admin: 11/02/17 04:02 Dose: 650 mg Albuterol/Ipratropium (Duoneb 3 Mg/0.5 Mg (3 Ml) Ud) 3 ml IH [id number] [facility] Last Admin: 11/02/17 08:50 Dose: 3 ml Albuterol/Ipratropium (Duoneb 3 Mg/0.5 Mg (3 Ml) Ud) 3 ml IH [id number] PRN PRN Reason: Shortness of Breath Aspirin (Aspirin Chewable) 81 mg PO DAILY [facility] Last Admin: 11/02/17 12:15 Dose: 81 mg Atazanavir (Reyataz) 300 mg PO DAILY [facility] Last Admin: 11/02/17 12:12 Dose: 300 mg Emtricitabine/Tenofovir (Truvada 200 Mg-300 Mg) 1 tab PO DAILY [facility] PRN Reason: Protocol Last Admin: 11/02/17 12:17 Dose: 1 tab Furosemide (Lasix) 40 mg IVP DAILY [facility] Last Admin: 11/02/17 12:15 Dose: 40 mg Gabapentin (Neurontin) 100 mg PO TID [facility] PRN Reason: Protocol Last Admin: 11/02/17 12:13 Dose: 100 mg Losartan Potassium (Cozaar) 75 mg PO DAILY [facility] Last Admin: 11/02/17 12:12 Dose: 75 mg Methadone HCl (Methadone) 100 mg PO DAILY [facility] Last Admin: 11/02/17 12:10 Dose: 100 mg Pantoprazole Sodium (Protonix Inj) 40 mg IVP DAILY [facility] Last Admin: 11/02/17 12:11 Dose: 40 mg Prednisone (Prednisone Tab) 40 mg PO DAILY [facility] Stop: 11/04/17 10:01 Last Admin: 11/02/17 12:16 Dose: 40 mg Ritonavir (Norvir) 100 mg PO DAILY [facility] PRN Reason: Protocol Last Admin: 11/02/17 12:15 Dose: 100 mg Trazodone HCl (Desyrel) 50 mg PO HS [facility] Last Admin: 11/01/17 22:02 Dose: 50 mg - Labs Labs: PT 12.7 SECONDS (9.4-12.5) H 10/30/17 20:08 INR 1.11 (0.93-1.08) H 10/30/17 20:08 APTT 25.9 Seconds (25.1-36.5) 10/30/17 20:08 Attending/Attestation - Attestation I have personally seen and examined this patient.: Yes I have fully participated in the care of the patient.: Yes I have reviewed all pertinent clinical information, including history, physical exam and plan: Yes Notes (Text): 11/02/17 12:33 Medical record note made by the resident after discussion with my direction and input after the patient was personally seen and examined by me. I have reviewed the chart and agree that the record accurately reflects by personal performance of the history, physical exam, data review, and medical decision-making, in the course for the patient. I have also personally directed the plan of care. 57 year old female with PMH of HIV, COPD, Sleep apnea,Pulmonary HTN, drug abuse on Methadone was admitted with worsening dyspnea due to COPD exacerbation, COPD is improving , we will change to oral Prednisone 40 mg po daily. Patient has elevated bilurubin likely due to congested liver,there is no evideice of hemolysis, less likely due to HIV medication, Patient billuribin is improving with IV lasix.Leg edema is improving. Physical therapy evaluation is pending.The need to participate in physical therapy evaluation was discussed ind etail with her. Management plan was discussed in detail with patient. Education was provided.
[2017-11-02] MEDS: Emtricitabine-Tenofovir 200 mg-300 mg Tab PO SCH (12:17)
[2017-11-02 15:07] VITALS: RESP 20
[2017-11-03] MEDS: Albuterol-Ipratrop 3 mg / 0.5 (3 ml) UD IH SCH ×5 (00:18→14:59)
[2017-11-03 07:00] LABS: BASO # 0.01 K/mm3 (0.0-2.0); BASO % 0.1 % (0.0-3.0); EOS % 0.1 % (1.5-5.0); GRAN # 8.8 (1.4-6.5); GRAN % 71.1 % (50.0-68.0); LYMPH # 2.5 (1.2-3.4); LYMPH % 20.4 % (22.0-35.0); MEAN CELL VOLUME 89.9 fl (80.0-105.0); MEAN CORPUSCULAR HGB CONC 30.1 g/dl (31.0-37.0); MEAN PLATELET VOLUME 10.3 fl (7.0-11.0); MONO % 8.3 % (1.0-6.0); RBC 4.07 10^6/uL (3.5-6.1); RED CELL DISTRIBUTION WIDTH 15.9 % (11.5-14.5); WHITE BLOOD COUNT 12.4 10^3/ul (4.5-11.0)
[2017-11-03] MEDS ORDERED: Pantoprazole 40 mg EC Tab PO SCH (07:00)
[2017-11-03 07:55] VITALS: BP 130/87; PULSE 76; TEMP 98.6; O2SAT 98
[2017-11-03 07:57] LABS: ALBUMIN 3.8 g/dL (3.0-4.8); ALT/SGPT 32 U/L (7-56); AST/SGOT 23 U/L (14-36); BLOOD UREA NITROGEN 28 mg/dL (7-21); CALCIUM 9.5 mg/dL (8.4-10.5); GFR AFRICAN-AMERICAN > 60; GFR NON-AFRICAN AMERICAN > 60
[2017-11-03] MEDS: Emtricitabine-Tenofovir 200 mg-300 mg Tab PO SCH (10:50)
--- NOTE | 2017-11-03 13:35 | CP.PCM.DIS ---
<Aman Tapia - Last Filed: 11/03/17 13:39> Provider - Provider Date of Admission: 11/02/17 09:39 Attending physician: Dagoberto Rasheed MD Time Spent in preparation of Discharge (in minutes): 45 Hospital Course - Lab Results Lab Results: Most Recent Lab Values WBC 12.4 10^3/ul (4.5-11.0) H 11/03/17 06:15 RBC 4.07 10^6/uL (3.5-6.1) 11/03/17 06:15 Hgb 11.0 g/dL (12.0-16.0) L 11/03/17 06:15 Hct 36.6 % (36.0-48.0) 11/03/17 06:15 MCV 89.9 fl (80.0-105.0) 11/03/17 06:15 MCH 27.0 pg (25.0-35.0) 11/03/17 06:15 MCHC 30.1 g/dl (31.0-37.0) L 11/03/17 06:15 RDW 15.9 % (11.5-14.5) H 11/03/17 06:15 Plt Count 249 10^3/uL (120.0-450.0) 11/03/17 06:15 MPV 10.3 fl (7.0-11.0) 11/03/17 06:15 Gran % 71.1 % (50.0-68.0) H 11/03/17 06:15 Lymph % (Auto) 20.4 % (22.0-35.0) L 11/03/17 06:15 [place] % (Auto) 8.3 % (1.0-6.0) H 11/03/17 06:15 Eos % (Auto) 0.1 % (1.5-5.0) L 11/03/17 06:15 Baso % (Auto) 0.1 % (0.0-3.0) 11/03/17 06:15 Gran # 8.80 (1.4-6.5) H 11/03/17 06:15 Lymph # (Auto) 2.5 (1.2-3.4) 11/03/17 06:15 [place] # (Auto) 1.0 (0.1-0.6) H 11/03/17 06:15 Eos # (Auto) 0.0 (0.0-0.7) 11/03/17 06:15 Baso # (Auto) 0.01 K/mm3 (0.0-2.0) 11/03/17 06:15 ESR 22 mm/hr (0.0-20.0) H 10/31/17 06:00 PT 12.7 SECONDS (9.4-12.5) H 10/30/17 20:08 INR 1.11 (0.93-1.08) H 10/30/17 20:08 APTT 25.9 Seconds (25.1-36.5) 10/30/17 20:08 D-Dimer, Quantitative 292 ng/mL (0-243) H 10/30/17 20:08 Sodium 142 mmol/L (132-148) 11/03/17 06:15 Potassium 4.3 mmol/L (3.6-5.0) 11/03/17 06:15 Chloride 96 mmol/L (98-107) L 11/03/17 06:15 Carbon Dioxide 39 mmol/L (21-33) H 11/03/17 06:15 Anion Gap 11 (10-20) 11/03/17 06:15 BUN 28 mg/dL (7-21) H 11/03/17 06:15 Creatinine 0.8 mg/dl (0.7-1.2) 11/03/17 06:15 Est GFR ( Amer) > 60 11/03/17 06:15 Est GFR (Non-Af Amer) > 60 11/03/17 06:15 Random Glucose 122 mg/dL (70-110) H 11/03/17 06:15 Calcium 9.5 mg/dL (8.4-10.5) 11/03/17 06:15 Total Bilirubin 1.2 mg/dL (0.2-1.3) 11/03/17 06:15 AST 23 U/L (14-36) 11/03/17 06:15 ALT 32 U/L (7-56) 11/03/17 06:15 Alkaline Phosphatase 72 U/L (38-126) 11/03/17 06:15 Lactate Dehydrogenase 837 U/L (333-699) H 10/30/17 20:08 Total Creatine Kinase 126 U/L (35-230) 10/30/17 20:08 Troponin I < 0.01 ng/mL 10/31/17 11:15 NT-Pro-B Natriuret Pep 171 pg/mL (0-450) 10/30/17 20:08 Total Protein 7.7 g/dL (5.8-8.3) 11/03/17 06:15 Albumin 3.8 g/dL (3.0-4.8) 11/03/17 06:15 Globulin 4.0 gm/dL 11/03/17 06:15 Albumin/Globulin Ratio 1.0 (1.1-1.8) L 11/03/17 06:15 Lipase < 10 U/L (23-300) L 10/30/17 20:08 - Hospital Course Hospital Course: On Admission: 57 year old female with past medical history of DM, HTN, OA of b/l knees, HIV, COPD, and osteoporosis who presents with 2 day history of shortness of breath. Patient reports shob is worse with walking even short distances. Patient denies productive cough, fever, chills, sharp pain with inspriation. Patient reports mild chest pressure that is exacerbated with movement. She denies radiation of chest pain, nausea, vomiting, sweating sensation. Patient reports pain more severe prior to admission. Patient reports compliance with medications and appropriate follow up. Associated symptoms for patient include right lower calf pain with some erythema and warmth to the limb. Patient indicates recent development of symptoms. 12 point ROS is benign other than mentioned in HPI. Hospital Course: Patient was treated with steroids and duonebs q4. Was seen and evaluated by PT who states she can go home with services. Her breathing has improved and she is able to ambulate. I prescribed her albuterol, advair and spiriva with instructions to follow up with her regular care doctor and pulmonolgist in 7-10 days. Discharge Exam - Head Exam Head Exam: ATRAUMATIC, NORMOCEPHALIC - Eye Exam Eye Exam: EOMI, Normal appearance, PERRL Pupil Exam: NORMAL ACCOMODATION, PERRL - Respiratory Exam Respiratory Exam: Clear to PA & Lateral, NORMAL BREATHING PATTERN, UNREMARKABLE. absent: Wheezes - Cardiovascular Exam Cardiovascular Exam: REGULAR RHYTHM - GI/Abdominal Exam GI & Abdominal Exam: Normal Bowel Sounds, Soft, Unremarkable. absent: Distended , Tenderness - Neurological Exam Neurological exam: Alert, CN II-XII Intact, Normal Gait, Oriented x3, Reflexes Normal - Psychiatric Exam Psychiatric exam: Normal Affect, Normal Mood - Skin Skin Exam: Dry, Intact, Normal Color, Warm Discharge Plan - Discharge Medications Prescriptions: Albuterol HFA [Ventolin HFA 90 mcg/actuation (8 g)] 2 puff IH [id number] 30 Days puff Fluticasone/Salmeterol 250/50 [Advair Diskus] 1 puff IH Q12 #30 puff Tiotropium [Spiriva] 18 mcg IH DAILY 30 Days cap - Follow Up Plan Condition: FAIR Disposition: HOME/ ROUTINE Additional Instructions: Please follow up with your primary care doctor as well as yor lung doctor. This is very important in order to get your COPD under control. Please bring with you all of your home medications as well as the inhalers i have prescribed to you. Please come back to the ED if symptoms worsen. <Darleen Orta B - Last Filed: 11/03/17 14:06> Provider - Provider Date of Admission: 11/02/17 09:39 Attending physician: Dagoberto Rasheed MD Hospital Course - Lab Results Lab Results: Most Recent Lab Values WBC 12.4 10^3/ul (4.5-11.0) H 11/03/17 06:15 RBC 4.07 10^6/uL (3.5-6.1) 11/03/17 06:15 Hgb 11.0 g/dL (12.0-16.0) L 11/03/17 06:15 Hct 36.6 % (36.0-48.0) 11/03/17 06:15 MCV 89.9 fl (80.0-105.0) 11/03/17 06:15 MCH 27.0 pg (25.0-35.0) 11/03/17 06:15 MCHC 30.1 g/dl (31.0-37.0) L 11/03/17 06:15 RDW 15.9 % (11.5-14.5) H 11/03/17 06:15 Plt Count 249 10^3/uL (120.0-450.0) 11/03/17 06:15 MPV 10.3 fl (7.0-11.0) 11/03/17 06:15 Gran % 71.1 % (50.0-68.0) H 11/03/17 06:15 Lymph % (Auto) 20.4 % (22.0-35.0) L 11/03/17 06:15 [place] % (Auto) 8.3 % (1.0-6.0) H 11/03/17 06:15 Eos % (Auto) 0.1 % (1.5-5.0) L 11/03/17 06:15 Baso % (Auto) 0.1 % (0.0-3.0) 11/03/17 06:15 Gran # 8.80 (1.4-6.5) H 11/03/17 06:15 Lymph # (Auto) 2.5 (1.2-3.4) 11/03/17 06:15 [place] # (Auto) 1.0 (0.1-0.6) H 11/03/17 06:15 Eos # (Auto) 0.0 (0.0-0.7) 11/03/17 06:15 Baso # (Auto) 0.01 K/mm3 (0.0-2.0) 11/03/17 06:15 ESR 22 mm/hr (0.0-20.0) H 10/31/17 06:00 PT 12.7 SECONDS (9.4-12.5) H 10/30/17 20:08 INR 1.11 (0.93-1.08) H 10/30/17 20:08 APTT 25.9 Seconds (25.1-36.5) 10/30/17 20:08 D-Dimer, Quantitative 292 ng/mL (0-243) H 10/30/17 20:08 Sodium 142 mmol/L (132-148) 11/03/17 06:15 Potassium 4.3 mmol/L (3.6-5.0) 11/03/17 06:15 Chloride 96 mmol/L (98-107) L 11/03/17 06:15 Carbon Dioxide 39 mmol/L (21-33) H 11/03/17 06:15 Anion Gap 11 (10-20) 11/03/17 06:15 BUN 28 mg/dL (7-21) H 11/03/17 06:15 Creatinine 0.8 mg/dl (0.7-1.2) 11/03/17 06:15 Est GFR ( Amer) > 60 11/03/17 06:15 Est GFR (Non-Af Amer) > 60 11/03/17 06:15 Random Glucose 122 mg/dL (70-110) H 11/03/17 06:15 Calcium 9.5 mg/dL (8.4-10.5) 11/03/17 06:15 Total Bilirubin 1.2 mg/dL (0.2-1.3) 11/03/17 06:15 AST 23 U/L (14-36) 11/03/17 06:15 ALT 32 U/L (7-56) 11/03/17 06:15 Alkaline Phosphatase 72 U/L (38-126) 11/03/17 06:15 Lactate Dehydrogenase 837 U/L (333-699) H 10/30/17 20:08 Total Creatine Kinase 126 U/L (35-230) 10/30/17 20:08 Troponin I < 0.01 ng/mL 10/31/17 11:15 NT-Pro-B Natriuret Pep 171 pg/mL (0-450) 10/30/17 20:08 Total Protein 7.7 g/dL (5.8-8.3) 11/03/17 06:15 Albumin 3.8 g/dL (3.0-4.8) 11/03/17 06:15 Globulin 4.0 gm/dL 11/03/17 06:15 Albumin/Globulin Ratio 1.0 (1.1-1.8) L 11/03/17 06:15 Lipase < 10 U/L (23-300) L 10/30/17 20:08 Attending/Attestation - Attestation I have personally seen and examined this patient.: Yes I have fully participated in the care of the patient.: Yes I have reviewed all pertinent clinical information, including history, physical exam and plan: Yes Notes (Text): I have seen and examined the patient at bedside. Agree with the above note. Follow up with Dr Aliyah Cho (pmd) and software tools developer Dr Sanchez.
[2017-11-03] MEDS ORDERED: Albuterol-Ipratrop 3 mg / 0.5 (3 ml) UD IH STA (17:22)
== END 2017-11-03 19:26 | disposition home or self-care (01) | DRG 140 ==
LOC: ED 18:30 → ERH 10-31 00:19 → 2RNO 10-31 02:37 → 5RSO 10-31 22:16 → OBSVTOIN 11-02 09:39
PROVIDERS: ADMIT Internal Medicine; ATTEND Internal Medicine
DX: I24.9 Acute ischemic heart disease, unspecified (principal); J44.9 Chronic obstructive pulmonary disease, unspecified; E11.41 Type 2 diabetes mellitus with diabetic mononeuropathy; I27.20 Pulmonary hypertension, unspecified; Z83.3 Family history of diabetes mellitus; Z82.49 Family history of ischemic heart disease and other diseases of the circulatory system; Z80.3 Family history of malignant neoplasm of breast; Z21 Asymptomatic human immunodeficiency virus [HIV] infection status; E78.00 Pure hypercholesterolemia, unspecified; G47.30 Sleep apnea, unspecified; G57.90 Unspecified mononeuropathy of unspecified lower limb; H91.92 Unspecified hearing loss, left ear; I10 Essential (primary) hypertension; K21.9 Gastro-esophageal reflux disease without esophagitis; K76.1 Chronic passive congestion of liver; M17.0 Bilateral primary osteoarthritis of knee; M81.0 Age-related osteoporosis without current pathological fracture; F17.200 Nicotine dependence, unspecified, uncomplicated; Z99.81 Dependence on supplemental oxygen

== ENCOUNTER 2017-11-06 22:55 | Observation (INO) | payer MEDICAID ==
--- NOTE | 2017-11-06 23:48 | ED PDOC ---
Arrival/HPI - General Time Seen by Provider: 11/06/17 23:07 Historian: Patient - History of Present Illness Narrative History of Present Illness (Text): 11/06/17 23:41 A 57 year old female, whose past medical history includes DM, HTN, OA of b/l knees, HIV, COPD, and osteoporosis, presents to the emergency department for a complaint of generalized weakness and malaise at home when she suddenly felt like she lost consciousness for a few minutes this evening. The patient notes that she was recently discharged from the hospital 4 days ago. The patient denies fevers, chills, chest pain, shortness of breath, dyspnea on exertion, cough, abdominal pain, nausea, vomiting, diarrhea, back pain, neck pain, urinary /bowel changes, or any other complaint. Time/Duration: Prior to Arrival Symptom Onset: Sudden Symptom Course: Unchanged Activities at Onset: Rest, Light Context: Home Past Medical History - Provider Review Nursing Documentation Reviewed: Yes - Infectious Disease Hx of Infectious Diseases: None - Tetanus Immunization Tetanus Immunization: Unknown - Cardiac Hx Hypertension: Yes - Pulmonary Hx Chronic Obstructive Pulmonary Disease (COPD): Yes - HEENT Hx HEENT Disorder: Yes (Glasses) Hx Deafness: Yes (left ear deafness) - Renal Hx Renal Failure: Yes (Received HD on last admission) - Endocrine/Metabolic Hx Diabetes Mellitus Type 2: Yes - Musculoskeletal/Rheumatological Hx Arthritis: Yes (BL knees) - Gastrointestinal Hx Gastroesophageal Reflux: Yes - Psychiatric Hx Substance Use: Yes (h/o heroine use) - Surgical History Other/Comment: R ear surgery - Anesthesia Hx Anesthesia: Yes Hx Anesthesia Reactions: No Hx Malignant Hyperthermia: No Family/Social History - Physician Review Nursing Documentation Reviewed: Yes Family/Social History: No Known Family HX Smoking Status: Current Some Days Smoker Hx Alcohol Use: No Hx Substance Use: Yes (h/o heroine use) Allergies/Home Meds Allergies/Adverse Reactions: Allergies No Known Allergies Allergy (Verified 09/18/17 17:56) Home Medications: Home Meds Medication Instructions Recorded Confirmed Atazanavir [Reyataz] 300 mg PO 09/19/17 Emtricitabine/Tenofovir Diso 09/19/17 [Truvada 200 MG-300 MG] MetFORMIN [glucoPHAGE] 1,000 mg PO BID 09/19/17 09/19/17 Methadone 100 mg PO 09/19/17 Ritonavir [Norvir] 100 mg PO 09/19/17 09/19/17 Simvastatin [Zocor] 20 mg PO 09/19/17 Review of Systems - Physician Review All systems were reviewed & negative as marked: Yes - Review of Systems Constitutional: Other (Generalized malaise and weakness). absent: Fevers, Night Sweats Respiratory: absent: SOB, Cough Cardiovascular: absent: Chest Pain, ARGUETA Gastrointestinal: absent: Abdominal Pain, Stool Changes, Diarrhea, Nausea, Vomiting Genitourinary Female: absent: Urine Output Changes Musculoskeletal: absent: Back Pain, Neck Pain Neurological: Other (Loss of consciousness) Physical Exam Vital Signs Reviewed: Yes Vital Signs Temp Pulse Pulse Resp BP Pulse Ox 11/07/17 04:16 98.8 F 87 87 19 113/69 11/07/17 04:00 98 H 18 160/83 H 97 11/07/17 03:33 99.7 F H 100 H 16 156/98 H 98 11/07/17 01:04 99.9 F H 102 H 16 97 11/07/17 00:31 101 H 18 144/104 H 92 L 11/06/17 23:48 100.0 F H 107 H 16 150/117 H 95 Temperature: Febrile Blood Pressure: Hypertensive Pulse: Tachycardic Respiratory Rate: Normal Appearance: Positive for: Well-Appearing, Non-Toxic Pain Distress: None Mental Status: Positive for: Alert and Oriented X 3 - Systems Exam Head: Present: Atraumatic, Normocephalic Pupils: Present: PERRL Extroacular Muscles: Present: EOMI Conjunctiva: Present: Normal Mouth: Present: Moist Mucous Membranes Neck: Present: Normal Range of Motion Respiratory/Chest: Present: Clear to Auscultation, Good Air Exchange. No: Respiratory Distress, Accessory Muscle Use Cardiovascular: Present: Regular Rate and Rhythm, Normal S1, S2. No: Murmurs Abdomen: No: Tenderness, Distention, Peritoneal Signs Back: Present: Normal Inspection Upper Extremity: Present: Normal Inspection. No: Cyanosis, Edema Lower Extremity: Present: Normal Inspection. No: Edema Neurological: Present: GCS=15, CN II-XII Intact, Speech Normal Skin: Present: Warm, Dry, Normal Color. No: Rashes Psychiatric: Present: Alert, Oriented x 3, Normal Insight, Normal Concentration Medical Decision Making ED Course and Treatment: 11/06/17 23:49 Impression: A 57 year old female presents to the emergency department for a complaint og generalized malaise, weakness, and subjective loss of consciousness. Plan: -- Head CT -- EKG -- Blood Culture -- Urinalysis -- Reassess and disposition Progress Notes: EKG: Ordered, reviewed, and independently interpreted the EKG. Rate : 94 BPM Rhythm : NSR with sinus arrhythmia Interpretation : Possible left atrial enlargement CT Head Without Intravenous Contrast EXAM DATE/TIME: 11/06/2017 11:44 PM Dictated and Authenticated by: Elva Lopez MD 11/07/2017 2:42 AM Eastern Time ([place] & [place]) IMPRESSION: - No acute findings seen within the brain. - See above for remaining findings. case d/w dr rivera and med resident for remote tele obs 11/07/17 06:22 - Lab Interpretations Lab Results: 11/07/17 00:15 11/07/17 00:15 Lab Results 11/07/17 01:12: Urine Opiates Screen Negative, Urine Methadone Screen Positive H , Ur Barbiturates Screen Negative, Ur Phencyclidine Scrn Negative, Ur Amphetamines Screen Negative, U Benzodiazepines Scrn Negative, U Oth Cocaine Metabols Negative, U Cannabinoids Screen Negative 11/07/17 01:12: Urine Color Yellow, Urine Appearance Clear, Urine pH 6.0, Ur Specific Rogers 1.025, Urine Protein Trace H, Urine Glucose (UA) Negative, Urine Ketones Negative, Urine Blood Negative, Urine Nitrate Negative, Urine Bilirubin Negative, Urine Urobilinogen 4.0 H, Ur Leukocyte Esterase Negative, Urine RBC 0 - 2, Urine WBC 1 - 3, Ur Epithelial Cells Many, Urine Bacteria Small 11/07/17 00:15: Alcohol, Quantitative < 10 11/07/17 00:15: Sodium 141, Potassium 5.1 H, Chloride 97 L, Carbon Dioxide 37 H , Anion Gap 12, BUN 21, Creatinine 0.7, Est GFR ( Amer) > 60, Est GFR ( Non-Af Amer) > 60, Random Glucose 195 H, Calcium 8.8, Phosphorus 3.1, Magnesium 1.9, Total Bilirubin 1.4 H, AST 42 H D, ALT 43, Alkaline Phosphatase 85, Lactate Dehydrogenase 711 H, Total Creatine Kinase 75, Troponin I < 0.01, Total Protein 7.8, Albumin 3.8, Globulin 4.0, Albumin/Globulin Ratio 1.0 L 11/07/17 00:15: WBC 12.2 H, RBC 4.15, Hgb 11.5 L, Hct 37.9, MCV 91.3, MCH 27.7, MCHC 30.3 L, RDW 15.9 H, Plt Count 235, MPV 10.3, Gran % 83.6 H, Lymph % (Auto) 11.0 L, [place] % (Auto) 4.3, Eos % (Auto) 1.0 L, Baso % (Auto) 0.1, Gran # 10.23 H , Lymph # (Auto) 1.4, [place] # (Auto) 0.5, Eos # (Auto) 0.1, Baso # (Auto) 0.01 I have reviewed the lab results: Yes - RAD Interpretation Radiology Orders: 11/06/17 23:44 HEAD W/O CONTRAST [CT] Stat 11/07/17 00:44 CHEST ONE VIEW [RAD] Stat - EKG Interpretation Interpreted by ED Physician: Yes Type: 12 lead EKG - Medication Orders Current Medication Orders: Albuterol Sulfate (Albuterol 0.083% Inhal Afsaneh (2.5 Mg/3 Ml) Ud) 2.5 mg IH [id number] PRN PRN Reason: Shortness of Breath Amlodipine Besylate (Norvasc) 5 mg PO DAILY VELIA Emtricitabine/Tenofovir (Truvada 200 Mg-300 Mg) 1 tab PO DAILY VELIA PRN Reason: Protocol Furosemide (Lasix) 40 mg PO DAILY VELIA Gabapentin (Neurontin) 100 mg PO TID VELIA PRN Reason: Protocol Heparin Sodium (Porcine) (Heparin) 5,000 units SC Q8 VELIA PRN Reason: Protocol Hydralazine HCl (Apresoline) 50 mg PO TID VELIA Insulin Human Regular (Humulin R Med) 0 units SC ACHS VELIA PRN Reason: Protocol Losartan Potassium (Cozaar) 100 mg PO DAILY VELIA Metoprolol Tartrate (Lopressor) 50 mg PO 0800,1800 [facility] Non-Formulary Medication (Atazanavir [Reyataz]) 300 mg PO DAILY VELIA Discontinued Medications Sodium Polystyrene Sulfonate (Kayexalate Susp) 15 gm PO ONCE ONE Stop: 11/07/17 03:15 Last Admin: 11/07/17 03:42 Dose: 15 gm - Scribe Statement The provider has reviewed the documentation as recorded by the Scribe Shazia Putnam Provider Scribe Attestation: All medical record entries made by the Scribe were at my direction and personally dictated by me. I have reviewed the chart and agree that the record accurately reflects my personal performance of the history, physical exam, medical decision making, and the department course for this patient. I have also personally directed, reviewed, and agree with the discharge instructions and disposition. Disposition/Present on Arrival - Present on Arrival Any Indicators Present on Arrival: No History of DVT/PE: No History of Uncontrolled Diabetes: No Urinary Catheter: No History Surgical Site Infection Following: None - Disposition Have Diagnosis and Disposition been Completed?: Yes Diagnosis: Syncope Disposition: HOSPITALIZED Disposition Time: 02:25 Condition: FAIR
[2017-11-07 00:37] LABS: BASO # 0.01 K/mm3 (0.0-2.0); BASO % 0.1 % (0.0-3.0); EOS # 0.1 (0.0-0.7); GRAN # 10.23 (1.4-6.5); GRAN % 83.6 % (50.0-68.0); HEMOGLOBIN 11.5 g/dL (12.0-16.0); LYMPH # 1.4 (1.2-3.4); MEAN CELL VOLUME 91.3 fl (80.0-105.0); MEAN CORPUSCULAR HEMOGLOBIN 27.7 pg (25.0-35.0); MEAN CORPUSCULAR HGB CONC 30.3 g/dl (31.0-37.0); MEAN PLATELET VOLUME 10.3 fl (7.0-11.0); MONO # 0.5 (0.1-0.6); MONO % 4.3 % (1.0-6.0); RBC 4.15 10^6/uL (3.5-6.1); RED CELL DISTRIBUTION WIDTH 15.9 % (11.5-14.5); WHITE BLOOD COUNT 12.2 10^3/ul (4.5-11.0)
[2017-11-07 00:58] LABS: TROPONIN I < 0.01 ng/mL
[2017-11-07 00:59] LABS: ALBUMIN 3.8 g/dL (3.0-4.8); ALT/SGPT 43 U/L (7-56); AST/SGOT 42 U/L (14-36); BLOOD UREA NITROGEN 21 mg/dL (7-21); CALCIUM 8.8 mg/dL (8.4-10.5); GFR AFRICAN-AMERICAN > 60; GFR NON-AFRICAN AMERICAN > 60
[2017-11-07 01:29] LABS: URINE BILIRUBIN NEGATIVE (NEGATIVE); URINE BLOOD NEGATIVE (NEGATIVE); URINE GLUCOSE (UA) NEGATIVE (NEGATIVE); URINE LEUKOCYTE ESTERASE NEGATIVE Leu/uL (NEGATIVE); URINE PROTEIN TRACE mg/dL (<30 mg/dL)
[2017-11-07 01:30] LABS: URINE APPEARANCE CLEAR (CLEAR); URINE COLOR YELLOW (YELLOW)
[2017-11-07 01:42] LABS: URINE BACTERIA SMALL (NEG); URINE EPITHELIAL CELLS MANY /hpf (0-5); URINE RBC 0 - 2 /hpf (0-2)
[2017-11-07 02:05] LABS: BARBITURATES, UR NEGATIVE (NEGATIVE); BENZODIAZEPINES, UR NEGATIVE (NEGATIVE); OPIATES, UR NEGATIVE (NEGATIVE); PHENCYCLIDINE, UR NEGATIVE (NEGATIVE)
--- NOTE | 2017-11-07 02:43 | CT ---
EXAM: CT Head Without Intravenous Contrast EXAM DATE/TIME: 11/06/2017 11:44 PM CLINICAL HISTORY: 57 years old, female; Signs and symptoms; Altered mental status/memory loss; Additional info: AMS TECHNIQUE: Axial computed tomography images of the head/brain without intravenous contrast. All CT scans at this facility use one or more dose reduction techniques, viz.: automated exposure control; ma/kV adjustment per patient size (including targeted exams where dose is matched to indication; i.e. head); or iterative reconstruction technique. Coronal and sagittal reformatted images were created and reviewed. COMPARISON: No relevant prior studies available. FINDINGS: BRAIN: No significant acute abnormality identified. No acute hemorrhage seen within the brain. No acute extra-axial fluid collections visualized. No evidence of significant mass effect within the brain. Normal tomas-white matter differentiation. VENTRICLES: No evidence of significant hydrocephalus. BONES/JOINTS: No acute fractures or other acute bony abnormality noted. SOFT TISSUES: No acute abnormality of the visualized soft tissues is seen. SINUSES: Visualized paranasal sinuses appear clear. MASTOID AIR CELLS: Mastoid air cells appear clear. IMPRESSION: - No acute findings seen within the brain. - See above for remaining findings.
[2017-11-07] MEDS ORDERED: Sod Polystyrene Sulf 15 gm/60 ml Susp PO ONE (03:14)
--- NOTE | 2017-11-07 03:31 | CP.PCM.HP ---
<Victor Hugo Herrera - Last Filed: 11/07/17 04:03> History of Present Illness - History of Present Illness History of Present Illness: 57 year old female with a past medical history of DM, hypertension, OA of b/l knees, HIV, COPD, and osteoporosis who presents to [facility] for an episode of feeling cold, dizzy, and unbalanced at 10:30 PM. The episode lasted 30 minutes. She did not have shortness of breath or chest pain. She simply felt very cold, like "I was thrown in [place]." She did not pass out. She did not lose consciousness. She just woke up at 10:30 night and felt weak, cold, and "knew something wasn't right. Important to note, patient has been hospitalized multiple times in [facility]. Most recently she was in the hospital this weekend for shortness of breath. She did not follow up with her PMD or her exterior work helper as instructed. On Friday she had trouble sleeping at night. Friday came and she went to her Methadone clinic and was told her blood pressure was very high and that it could damage her kidneys and even give her a stroke. In the ED, she complains of medial thigh pain and muscle cramps. She denied fever, dysuria, headache, chest pain, sputum production, appetite change. PMH: DM, HTN, OA of b/l knees, HIV, COPD, and osteoporosis Surg: Ear surgery All: NKDA FHx: DM, HTN, CAD, breast CA SH: 1/2 ppd for 30 yrs, admitted to prior heroin (snort) use for 6 months (quit 15 months ago) currently on methadone 100 mg daily, denied EtOH [facility] (Methadone) [phone] Present on Admission - Present on Admission Any Indicators Present on Admission: No Review of Systems - Constitutional Constitutional: Daytime Sleepiness. absent: Fever, Night Sweats - EENT Eyes: absent: Blind Spots, Exophthalmos, Floaters Nose/Mouth/Throat: absent: Epistaxis, Nasal Trauma, Bleeding Gums - Cardiovascular Cardiovascular: absent: Chest Pain, Dyspnea, Dyspnea on Exertion - Respiratory Respiratory: absent: Cough, Dyspnea on Exertion, Pain on Inspiration - Gastrointestinal Gastrointestinal: absent: Belching, Bloating, Constipation, Cramping - Genitourinary Genitourinary: absent: Change in Urinary Stream, Difficulty Urinating, Hematuria - Musculoskeletal Musculoskeletal: absent: Limited Range of Motion, Neck Pain, Stiffness - Neurological Neurological: Disequilibrium. absent: Abnormal Gait, Behavioral Changes - Endocrine Endocrine: Fatigue - Hematologic/Lymphatic Hematologic: absent: Easy Bleeding, Easy Bruising Past Patient History - Infectious Disease Hx of Infectious Diseases: None - Tetanus Immunizations Tetanus Immunization: Unknown - Past Social History Smoking Status: Current Some Days Smoker - CARDIAC Hx Hypertension: Yes - PULMONARY Hx Chronic Obstructive Pulmonary Disease (COPD): Yes - HEENT Hx HEENT Problems: Yes (Glasses) Hx Deafness: Yes (left ear deafness) - RENAL Hx Renal Failure: Yes (Received HD on last admission) - ENDOCRINE/METABOLIC Hx Diabetes Mellitus Type 2: Yes - HEMATOLOGICAL/ONCOLOGICAL Hx Human Immunodeficiency Virus (HIV): Yes (HIV+ () - MUSCULOSKELETAL/RHEUMATOLOGICAL Hx Arthritis: Yes (BL knees) - GASTROINTESTINAL Hx Gastroesophageal Reflux: Yes - PSYCHIATRIC Hx Substance Use: Yes (h/o heroine use) - SURGICAL HISTORY Other/Comment: R ear surgery - ANESTHESIA Hx Anesthesia: Yes Hx Anesthesia Reactions: No Hx Malignant Hyperthermia: No Meds Allergies/Adverse Reactions: Allergies Allergy/AdvReac Type Severity Reaction Status Date / Time No Known Allergies Allergy Verified 09/18/17 17:56 Physical Exam - Constitutional Appears: Well, Non-toxic - Head Exam Head Exam: ATRAUMATIC, NORMOCEPHALIC - Eye Exam Eye Exam: EOMI, Normal appearance - ENT Exam ENT Exam: Mucous Membranes Moist - Neck Exam Neck exam: Positive for: Normal Inspection - Respiratory Exam Respiratory Exam: Clear to Auscultation Bilateral, NORMAL BREATHING PATTERN. absent: Accessory Muscle Use - Cardiovascular Exam Cardiovascular Exam: RRR, +S1, +S2 - GI/Abdominal Exam GI & Abdominal Exam: Normal Bowel Sounds, Soft - Extremities Exam Extremities exam: Positive for: pedal edema (trace). Negative for: calf tenderness - Neurological Exam Neurological exam: Alert, CN II-XII Intact, Oriented x3 - Psychiatric Exam Psychiatric exam: Normal Affect, Normal Mood - Skin Skin Exam: Dry, Intact, Normal Color, Warm Results - Vital Signs Recent Vital Signs: Last Vital Signs Temp 100.0 F H 11/06/17 23:48 Pulse 101 H 11/07/17 00:31 Resp 18 11/07/17 00:31 BP 144/104 H 11/07/17 00:31 Pulse Ox 95 11/07/17 00:31 - Labs Result Diagrams: 11/07/17 00:15 11/07/17 00:15 Assessment & Plan - Assessment and Plan (Free Text) Assessment: Presyncope: etiology unknown Plan: 1) Hypertension - Amlodipine 5 - Hydralazine 50 TID - Losartan 100 mg - Lasix 40 mg PO Daily - Metoprolol 25 mg BID 2) HIV - Continue home medications, unless otherwise indicated 3) Dyslipidemia - Simvastatin NF - Consider restarting 4) Opioid dependence - Call the [facility] and confirm Methadone dosage 5) Hyperkalemia with acidosis - kayexelate 15 mg PO - BMP ordered for AM 6) Sleep apnea - CPAP 7) COPD - Continued home medications that do no interact with patients HIV medication 8) DM II - ISS regular with fingerstick BG with achs DVT/GI prophylaxis - heparin 5000 mg q8h VELIA - not indicated case reviewed and discussed with Dr. Franklin - Date & Time Date: 11/07/17 Time: 03:54 <Craig Franklin - Last Filed: 11/07/17 06:13> Results - Vital Signs Recent Vital Signs: Last Vital Signs Temp 98.8 F 11/07/17 05:58 Pulse 87 11/07/17 05:58 Resp 20 11/07/17 05:58 BP 113/69 11/07/17 05:58 Pulse Ox 100 11/07/17 05:58 - Labs Result Diagrams: 11/07/17 00:15 11/07/17 00:15 Labs: Laboratory Results - last 24 hr 11/07/17 04:16 POC Glucose (mg/dL) 103 Attending/Attestation - Attestation I have personally seen and examined this patient.: Yes I have fully participated in the care of the patient.: Yes I have reviewed all pertinent clinical information: Yes Notes (Text): 11/07/17 06:12 Patient was seen when she was in bed # 2 in the ER. Agree with history, physical examination, assessment and plan.
[2017-11-07] MEDS ORDERED: Albuterol 0.083% Inhal Sol (2.5 mg/3 mL) UD IH PRN (04:13)
[2017-11-07 05:44] VITALS: BMI 54.1
[2017-11-07 07:44] LABS: BLOOD UREA NITROGEN 19 mg/dL (7-21); CALCIUM 8.8 mg/dL (8.4-10.5); GFR AFRICAN-AMERICAN > 60; GFR NON-AFRICAN AMERICAN > 60
[2017-11-07] MEDS: Insulin Reg-MEDIUM-Coverage SC SCH ×4 (08:30→22:30)
--- NOTE | 2017-11-07 08:57 | RAD ---
PROCEDURE: CHEST RADIOGRAPH, 1 VIEW HISTORY: weakness COMPARISON: 10/30/2017 FINDINGS: LUNGS: Clear. PLEURA: No pneumothorax or pleural fluid seen. CARDIOVASCULAR: Mild cardiomegaly. Mild vascular congestion OSSEOUS STRUCTURES: No significant abnormalities. VISUALIZED UPPER ABDOMEN: Normal. OTHER FINDINGS: None. IMPRESSION: Mild cardiomegaly and mild vascular congestion
[2017-11-07] MEDS: Emtricitabine-Tenofovir 200 mg-300 mg Tab PO SCH ×2 (09:04→12:03)
--- NOTE | 2017-11-07 09:33 | CARD ---
APPROVED REPORT EKG Measurement Heart [id number] <Conclusion> Normal sinus rhythm with sinus arrhythmia Possible Left atrial enlargement Prolonged QT Abnormal ECG
[2017-11-07 16:39] LABS: TROPONIN I < 0.01 ng/mL
[2017-11-07 19:00] VITALS: RESP 20
[2017-11-08 05:53] VITALS: O2SAT 97
[2017-11-08] MEDS: Insulin Reg-MEDIUM-Coverage SC SCH ×3 (08:46→17:44)
[2017-11-08] MEDS: Emtricitabine-Tenofovir 200 mg-300 mg Tab PO SCH (09:01)
[2017-11-08 09:23] LABS: BASO # 0.01 K/mm3 (0.0-2.0); BASO % 0.1 % (0.0-3.0); EOS # 0.2 (0.0-0.7); EOS % 2.6 % (1.5-5.0); GRAN # 5.35 (1.4-6.5); GRAN % 63.2 % (50.0-68.0); LYMPH # 2.3 (1.2-3.4); LYMPH % 27.6 % (22.0-35.0); MEAN CELL VOLUME 91.4 fl (80.0-105.0); MEAN CORPUSCULAR HGB CONC 29.6 g/dl (31.0-37.0); MEAN PLATELET VOLUME 10.7 fl (7.0-11.0); MONO # 0.6 (0.1-0.6); MONO % 6.5 % (1.0-6.0); RBC 4.07 10^6/uL (3.5-6.1); RED CELL DISTRIBUTION WIDTH 16.1 % (11.5-14.5); WHITE BLOOD COUNT 8.5 10^3/ul (4.5-11.0)
[2017-11-08 09:59] LABS: ALBUMIN 3.9 g/dL (3.0-4.8); CALCIUM 9.1 mg/dL (8.4-10.5)
--- NOTE | 2017-11-08 12:48 | CARD ---
APPROVED REPORT EKG Measurement Heart [id number] [id number] <Conclusion> Normal sinus rhythm Prolonged QT
--- NOTE | 2017-11-08 12:51 | CP.PCM.DIS ---
<Aman Tapia - Last Filed: 11/08/17 16:20> Provider - Provider Date of Admission: 11/07/17 02:23 Attending physician: Dagoberto Rasheed MD Primary care physician: Bert Hogan MD Consults: None Time Spent in preparation of Discharge (in minutes): 45 Hospital Course - Lab Results Lab Results: Most Recent Lab Values WBC 8.5 10^3/ul (4.5-11.0) D 11/08/17 08:30 RBC 4.07 10^6/uL (3.5-6.1) 11/08/17 08:30 Hgb 11.0 g/dL (12.0-16.0) L 11/08/17 08:30 Hct 37.2 % (36.0-48.0) 11/08/17 08:30 MCV 91.4 fl (80.0-105.0) 11/08/17 08:30 MCH 27.0 pg (25.0-35.0) 11/08/17 08:30 MCHC 29.6 g/dl (31.0-37.0) L 11/08/17 08:30 RDW 16.1 % (11.5-14.5) H 11/08/17 08:30 Plt Count 233 10^3/uL (120.0-450.0) 11/08/17 08:30 MPV 10.7 fl (7.0-11.0) 11/08/17 08:30 Gran % 63.2 % (50.0-68.0) 11/08/17 08:30 Lymph % (Auto) 27.6 % (22.0-35.0) 11/08/17 08:30 [place] % (Auto) 6.5 % (1.0-6.0) H 11/08/17 08:30 Eos % (Auto) 2.6 % (1.5-5.0) 11/08/17 08:30 Baso % (Auto) 0.1 % (0.0-3.0) 11/08/17 08:30 Gran # 5.35 (1.4-6.5) 11/08/17 08:30 Lymph # (Auto) 2.3 (1.2-3.4) 11/08/17 08:30 [place] # (Auto) 0.6 (0.1-0.6) 11/08/17 08:30 Eos # (Auto) 0.2 (0.0-0.7) 11/08/17 08:30 Baso # (Auto) 0.01 K/mm3 (0.0-2.0) 11/08/17 08:30 Sodium 140 mmol/L (132-148) 11/08/17 08:30 Potassium 4.8 mmol/L (3.6-5.0) 11/08/17 08:30 Chloride 98 mmol/L (98-107) 11/08/17 08:30 Carbon Dioxide 34 mmol/L (21-33) H 11/08/17 08:30 Anion Gap 13 (10-20) 11/08/17 08:30 BUN 33 mg/dL (7-21) H 11/08/17 08:30 Creatinine 1.3 mg/dl (0.7-1.2) H 11/08/17 08:30 Est GFR ( Amer) 51 11/08/17 08:30 Est GFR (Non-Af Amer) 42 11/08/17 08:30 POC Glucose (mg/dL) 131 mg/dL (65-110) H 11/08/17 11:13 Random Glucose 137 mg/dL (70-110) H 11/08/17 08:30 Calcium 9.1 mg/dL (8.4-10.5) 11/08/17 08:30 Phosphorus 3.1 mg/dL (2.5-4.5) 11/07/17 00:15 Magnesium 1.9 mg/dL (1.7-2.2) 11/07/17 00:15 Total Bilirubin 1.9 mg/dL (0.2-1.3) H 11/08/17 08:30 AST 27 U/L (14-36) 11/08/17 08:30 ALT 38 U/L (7-56) 11/08/17 08:30 Alkaline Phosphatase 83 U/L (38-126) 11/08/17 08:30 Lactate Dehydrogenase 522 U/L (333-699) 11/07/17 16:03 Total Creatine Kinase 70 U/L (35-230) 11/07/17 16:03 Troponin I < 0.01 ng/mL 11/07/17 16:03 Total Protein 7.9 g/dL (5.8-8.3) 11/08/17 08:30 Albumin 3.9 g/dL (3.0-4.8) 11/08/17 08:30 Globulin 4.0 gm/dL 11/08/17 08:30 Albumin/Globulin Ratio 1.0 (1.1-1.8) L 11/08/17 08:30 Urine Color Yellow (YELLOW) 11/07/17 01:12 Urine Appearance Clear (CLEAR) 11/07/17 01:12 Urine pH 6.0 (4.7-8.0) 11/07/17 01:12 Ur Specific [place] 1.025 (1.005-1.035) 11/07/17 01:12 Urine Protein Trace mg/dL (<30 mg/dL) H 11/07/17 01:12 Urine Glucose (UA) Negative mg/dL (NEGATIVE) 11/07/17 01:12 Urine Ketones Negative mg/dL (NEGATIVE) 11/07/17 01:12 Urine Blood Negative (NEGATIVE) 11/07/17 01:12 Urine Nitrate Negative (NEGATIVE) 11/07/17 01:12 Urine Bilirubin Negative (NEGATIVE) 11/07/17 01:12 Urine Urobilinogen 4.0 E.U./dL (<1 E.U./dL) H 11/07/17 01:12 Ur Leukocyte Esterase Negative Devyn/uL (NEGATIVE) 11/07/17 01:12 Urine RBC 0 - 2 /hpf (0-2) 11/07/17 01:12 Urine WBC 1 - 3 /hpf (0-6) 11/07/17 01:12 Ur Epithelial Cells Many /hpf (0-5) 11/07/17 01:12 Urine Bacteria Small (NEG) 11/07/17 01:12 Urine Opiates Screen Negative (NEGATIVE) 11/07/17 01:12 Urine Methadone Screen Positive (NEGATIVE) H 11/07/17 01:12 Ur Barbiturates Screen Negative (NEGATIVE) 11/07/17 01:12 Ur Phencyclidine Scrn Negative (NEGATIVE) 11/07/17 01:12 Ur Amphetamines Screen Negative (NEGATIVE) 11/07/17 01:12 U Benzodiazepines Scrn Negative (NEGATIVE) 11/07/17 01:12 U Oth Cocaine Metabols Negative (NEGATIVE) 11/07/17 01:12 U Cannabinoids Screen Negative (NEGATIVE) 11/07/17 01:12 Alcohol, Quantitative < 10 mg/dL (0-10) 11/07/17 00:15 - Hospital Course Hospital Course: On admission: 57 year old female with a past medical history of DM, hypertension, OA of b/l knees, HIV, COPD, and osteoporosis who presents to [facility] for an episode of feeling cold, dizzy, and unbalanced at 10:30 PM. The episode lasted 30 minutes. She did not have shortness of breath or chest pain. She simply felt very cold, like "I was thrown in [place]." She did not pass out. She did not lose consciousness. She just woke up at 10:30 night and felt weak, cold, and "knew something wasn't right. Important to note, patient has been hospitalized multiple times in [facility]. Most recently she was in the hospital this weekend for shortness of breath. 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 On Friday she had trouble sleeping at night. Friday came and she went to her Methadone clinic and was told her blood pressure was very high and that it could damage her kidneys and even give her a stroke. In the ED, she complains of medial thigh pain and muscle cramps. She denied fever, dysuria, headache, chest pain, sputum production, appetite change. Hospital course: Patient normal head CT and EKGs. No LOC was present despite previous report of syncope. We observed the the patient for 24 hours with no acute events. The patient was discharged with instructions to follow up with her primary doctor. She stated she needed refills of her HTN medications and her cholesterol mediation so we wrote scripts for those medications. Discharge Exam - Head Exam Head Exam: ATRAUMATIC, NORMOCEPHALIC - Eye Exam Eye Exam: EOMI, Normal appearance, PERRL Pupil Exam: NORMAL ACCOMODATION, PERRL - Respiratory Exam Respiratory Exam: Clear to PA & Lateral, NORMAL BREATHING PATTERN, UNREMARKABLE. absent: Wheezes - Cardiovascular Exam Cardiovascular Exam: REGULAR RHYTHM. absent: Tachycardia - GI/Abdominal Exam GI & Abdominal Exam: Normal Bowel Sounds, Soft. absent: Distended, Tenderness - Extremities Exam Extremities exam: normal inspection - Neurological Exam Neurological exam: Alert, CN II-XII Intact, Normal Gait, Oriented x3, Reflexes Normal - Psychiatric Exam Psychiatric exam: Normal Affect, Normal Mood - Skin Skin Exam: Dry, Intact, Normal Color, Warm Discharge Plan - Discharge Medications Prescriptions: amLODIPine [Norvasc] 5 mg PO DAILY #30 tab hydrALAZINE [Apresoline] 50 mg PO TID 30 Days tab Losartan [Cozaar] 100 mg PO DAILY #30 tab Metoprolol Tartrate [Lopressor] 50 mg PO 0800,1800 30 Days tab Simvastatin [Zocor] 20 mg PO DAILY #30 tablet - Follow Up Plan Condition: FAIR Disposition: HOME/ ROUTINE Instructions: Diabetes Exchange Diet, Generalized Weakness Additional Instructions: Please follow up with your primary care doctor in 7-10 days. Please take the following medications as directed: 1. Albuterol inhaler as needed for shortness of breath 2. Norvasc 5mg by mouth daily 3. Aspirin 81mg by mouth daily 4. Reyataz 300mg daily 5. Emtricitabine/Tenofovir daily 6. Fluticasone/salmeterol Every 12 hours 7. Neurontin 100mg by mouth daily 8. Metformin 1000mg by mouth twice per day 9. Methadone as directed by Kleidoscope 10. Lopressor 50mg by mouth daily 11. Norvir 100mg by mouth daily 12. Zocor 20 mg by mouth daily 13. Spiriva 18mcg daily Referrals: Bert Hogan MD [Primary Care Provider] - <Dagoberto Rasheed - Last Filed: 11/08/17 17:26> Provider - Provider Date of Admission: 11/07/17 02:23 Attending physician: Dagoberto Rasheed MD Primary care physician: Bert Hogan MD Time Spent in preparation of Discharge (in minutes): 35 Hospital Course - Lab Results Lab Results: Most Recent Lab Values WBC 8.5 10^3/ul (4.5-11.0) D 11/08/17 08:30 RBC 4.07 10^6/uL (3.5-6.1) 11/08/17 08:30 Hgb 11.0 g/dL (12.0-16.0) L 11/08/17 08:30 Hct 37.2 % (36.0-48.0) 11/08/17 08:30 MCV 91.4 fl (80.0-105.0) 11/08/17 08:30 MCH 27.0 pg (25.0-35.0) 11/08/17 08:30 MCHC 29.6 g/dl (31.0-37.0) L 11/08/17 08:30 RDW 16.1 % (11.5-14.5) H 11/08/17 08:30 Plt Count 233 10^3/uL (120.0-450.0) 11/08/17 08:30 MPV 10.7 fl (7.0-11.0) 11/08/17 08:30 Gran % 63.2 % (50.0-68.0) 11/08/17 08:30 Lymph % (Auto) 27.6 % (22.0-35.0) 11/08/17 08:30 [place] % (Auto) 6.5 % (1.0-6.0) H 11/08/17 08:30 Eos % (Auto) 2.6 % (1.5-5.0) 11/08/17 08:30 Baso % (Auto) 0.1 % (0.0-3.0) 11/08/17 08:30 Gran # 5.35 (1.4-6.5) 11/08/17 08:30 Lymph # (Auto) 2.3 (1.2-3.4) 11/08/17 08:30 [place] # (Auto) 0.6 (0.1-0.6) 11/08/17 08:30 Eos # (Auto) 0.2 (0.0-0.7) 11/08/17 08:30 Baso # (Auto) 0.01 K/mm3 (0.0-2.0) 11/08/17 08:30 Sodium 140 mmol/L (132-148) 11/08/17 08:30 Potassium 4.8 mmol/L (3.6-5.0) 11/08/17 08:30 Chloride 98 mmol/L (98-107) 11/08/17 08:30 Carbon Dioxide 34 mmol/L (21-33) H 11/08/17 08:30 Anion Gap 13 (10-20) 11/08/17 08:30 BUN 33 mg/dL (7-21) H 11/08/17 08:30 Creatinine 1.3 mg/dl (0.7-1.2) H 11/08/17 08:30 Est GFR ( Amer) 51 11/08/17 08:30 Est GFR (Non-Af Amer) 42 11/08/17 08:30 POC Glucose (mg/dL) 106 mg/dL (65-110) 11/08/17 15:50 Random Glucose 137 mg/dL (70-110) H 11/08/17 08:30 Calcium 9.1 mg/dL (8.4-10.5) 11/08/17 08:30 Phosphorus 3.1 mg/dL (2.5-4.5) 11/07/17 00:15 Magnesium 1.9 mg/dL (1.7-2.2) 11/07/17 00:15 Total Bilirubin 1.9 mg/dL (0.2-1.3) H 11/08/17 08:30 AST 27 U/L (14-36) 11/08/17 08:30 ALT 38 U/L (7-56) 11/08/17 08:30 Alkaline Phosphatase 83 U/L (38-126) 11/08/17 08:30 Lactate Dehydrogenase 522 U/L (333-699) 11/07/17 16:03 Total Creatine Kinase 70 U/L (35-230) 11/07/17 16:03 Troponin I < 0.01 ng/mL 11/07/17 16:03 Total Protein 7.9 g/dL (5.8-8.3) 11/08/17 08:30 Albumin 3.9 g/dL (3.0-4.8) 11/08/17 08:30 Globulin 4.0 gm/dL 11/08/17 08:30 Albumin/Globulin Ratio 1.0 (1.1-1.8) L 11/08/17 08:30 Urine Color Yellow (YELLOW) 11/07/17 01:12 Urine Appearance Clear (CLEAR) 11/07/17 01:12 Urine pH 6.0 (4.7-8.0) 11/07/17 01:12 Ur Specific [place] 1.025 (1.005-1.035) 11/07/17 01:12 Urine Protein Trace mg/dL (<30 mg/dL) H 11/07/17 01:12 Urine Glucose (UA) Negative mg/dL (NEGATIVE) 11/07/17 01:12 Urine Ketones Negative mg/dL (NEGATIVE) 11/07/17 01:12 Urine Blood Negative (NEGATIVE) 11/07/17 01:12 Urine Nitrate Negative (NEGATIVE) 11/07/17 01:12 Urine Bilirubin Negative (NEGATIVE) 11/07/17 01:12 Urine Urobilinogen 4.0 E.U./dL (<1 E.U./dL) H 11/07/17 01:12 Ur Leukocyte Esterase Negative Devyn/uL (NEGATIVE) 11/07/17 01:12 Urine RBC 0 - 2 /hpf (0-2) 11/07/17 01:12 Urine WBC 1 - 3 /hpf (0-6) 11/07/17 01:12 Ur Epithelial Cells Many /hpf (0-5) 11/07/17 01:12 Urine Bacteria Small (NEG) 11/07/17 01:12 Urine Opiates Screen Negative (NEGATIVE) 11/07/17 01:12 Urine Methadone Screen Positive (NEGATIVE) H 11/07/17 01:12 Ur Barbiturates Screen Negative (NEGATIVE) 11/07/17 01:12 Ur Phencyclidine Scrn Negative (NEGATIVE) 11/07/17 01:12 Ur Amphetamines Screen Negative (NEGATIVE) 11/07/17 01:12 U Benzodiazepines Scrn Negative (NEGATIVE) 11/07/17 01:12 U Oth Cocaine Metabols Negative (NEGATIVE) 11/07/17 01:12 U Cannabinoids Screen Negative (NEGATIVE) 11/07/17 01:12 Alcohol, Quantitative < 10 mg/dL (0-10) 11/07/17 00:15 Attending/Attestation - Attestation I have personally seen and examined this patient.: Yes I have fully participated in the care of the patient.: Yes I have reviewed all pertinent clinical information, including history, physical exam and plan: Yes Notes (Text): 11/08/17 17:21 Medical record note made by the resident after discussion with my direction and input after the patient was personally seen and examined by me. I have reviewed the chart and agree that the record accurately reflects by personal performance of the history, physical exam, data review, and medical decision-making, in the course for the patient. I have also personally directed the plan of care. 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 Management plan was discussed in detail with patient. Education was provided.
[2017-11-08 17:32] VITALS: BP 98/68; TEMP 98
[2017-11-08 18:53] VITALS: PULSE 61
== END 2017-11-08 18:00 | disposition home or self-care (01) ==
LOC: ED 22:55 → ERH 11-07 02:23 → 2RSO 11-07 04:52
PROVIDERS: ADMIT Internal Medicine; ATTEND Internal Medicine
DX: R42 Dizziness and giddiness (principal); R55 Syncope and collapse; R53.1 Weakness; I10 Essential (primary) hypertension; B20 Human immunodeficiency virus [HIV] disease; F11.20 Opioid dependence, uncomplicated; M81.0 Age-related osteoporosis without current pathological fracture; M17.0 Bilateral primary osteoarthritis of knee; J44.9 Chronic obstructive pulmonary disease, unspecified; E11.9 Type 2 diabetes mellitus without complications; H91.92 Unspecified hearing loss, left ear; K21.9 Gastro-esophageal reflux disease without esophagitis; E78.5 Hyperlipidemia, unspecified; E87.5 Hyperkalemia; E87.2 Acidosis; G47.30 Sleep apnea, unspecified; I27.20 Pulmonary hypertension, unspecified; Z79.84 Long term (current) use of oral hypoglycemic drugs; Z87.891 Personal history of nicotine dependence; Z80.3 Family history of malignant neoplasm of breast
CPT/HCPCS: 36415; 70450; 71045; 80053; 80320; 80324; 80345; 80346; 80349; 80353; 80358; 80361; 81001; 82550; 82948; 83615; 83735; 83992; 84100; 84484; 85025; 87040; 93005; 96372; 99285; G0378; J1644